=== PATIENT | male | born 1950 | race Caucasian/White ===

== ENCOUNTER 2020-09-04 | Outpatient (REF) | payer MEDICARE, OTHER, SELFPAY ==
[2020-09-04 08:34] LABS: MANUAL DIFF FLAG NO
[2020-09-04 08:49] LABS: Basophils Absolute Auto 0.1 X10*3/uL (0.0-0.2); Basophils Percent Auto 0.8 % (0-2); Eosinophils Absolute Auto 0.2 X10*3/uL (0.0-0.4); Eosinophils Percent Auto 2.1 % (0-4); Hemoglobin 14.4 g/dl (14.0-18.0); Imm Gran Abs Auto 0.23 X10*3/uL (0.00-0.03); Imm Gran Pct Auto 2.7 % (0.0-0.4); Lymphocytes Absolute Auto 2.4 X10*3/uL (1.2-4.9); Lymphocytes Percent Auto 28.4 % (20-40); Mean Corpuscular HGB Conc 32.7 g/dl (31.0-36.0); Mean Corpuscular Hemoglobin 30.5 pg (27.0-33.0); Mean Corpuscular Volume 93.2 fL (80-98); Mean Platelet Volume 8.8 fL (9.4-12.4); Monocytes Absolute Auto 1.1 X10*3/uL (0.1-1.2); Monocytes Percent Auto 13.1 % (2-11); Neutrophils Absolute Auto 4.5 X10*3/uL (2.0-8.3); Neutrophils Percent Auto 52.9 % (45-73); Platelet Count 216 X10*3/uL (160-400); Red Blood Count 4.72 X10*6/uL (4.60-5.80); White Blood Count 8.5 X10*3/uL (4.8-10.8)
[2020-09-04 08:58] LABS: Alanine Aminotransferase 14 U/L (0-40); Albumin Level 3.6 g/dL (3.5-5.0); Alkaline Phosphatase 40 U/L (39-117); Anion Gap 12 (12-20); Aspartate Amino Transferase 17 U/L (5-37); Bilirubin Total 0.5 mg/dL (0.0-1.0); Blood Urea Nitrogen 31 mg/dL (9-16); Calcium 8.8 mg/dL (8.4-10.2); Carbon Dioxide 24 mmol/L (22-29); Chloride 107 mmol/L (96-108); Cholesterol 164 mg/dL; Estimated Glomerular Filt Rate 47; Glucose Fasting 95 mg/dL (60-99); HDL Cholesterol 58 mg/dL; LDL Cholesterol Calculated 81 mg/dl; Potassium 4.7 mmol/l (3.3-5.1); Sodium 138 mmol/L (135-145); Total Protein 6.9 g/dL (6.5-8.0); Triglycerides 128 mg/dL
== END 2020-09-04 00:01 | disposition home or self-care (01) ==
LOC: HO.HSHHMC
PROVIDERS: Visit Provider Internal Medicine Medical Oncology
DX: E78.5 Hyperlipidemia, unspecified (principal)
CPT/HCPCS: 36415; 80053; 80061; 85025

== ENCOUNTER 2021-01-03 | Outpatient (REF) | payer MEDICARE, OTHER, SELFPAY ==
[2021-01-03 08:41] LABS: MANUAL DIFF FLAG NO
[2021-01-03 08:43] LABS: Basophils Absolute Auto 0.1 X10*3/uL (0.0-0.2); Basophils Percent Auto 0.7 % (0-2); Eosinophils Absolute Auto 0.1 X10*3/uL (0.0-0.4); Eosinophils Percent Auto 1.4 % (0-4); Hematocrit 47.1 % (42-52); Hemoglobin 15.5 g/dl (14.0-18.0); Imm Gran Abs Auto 0.11 X10*3/uL (0.00-0.03); Imm Gran Pct Auto 1.2 % (0.0-0.4); Lymphocytes Absolute Auto 3.2 X10*3/uL (1.2-4.9); Lymphocytes Percent Auto 34.9 % (20-40); Mean Corpuscular HGB Conc 32.9 g/dl (31.0-36.0); Mean Corpuscular Hemoglobin 31.2 pg (27.0-33.0); Mean Corpuscular Volume 94.8 fL (80-98); Mean Platelet Volume 9.3 fL (9.4-12.4); Monocytes Absolute Auto 1.2 X10*3/uL (0.1-1.2); Monocytes Percent Auto 13.1 % (2-11); Neutrophils Absolute Auto 4.4 X10*3/uL (2.0-8.3); Neutrophils Percent Auto 48.7 % (45-73); Platelet Count 266 X10*3/uL (160-400); Red Blood Count 4.97 X10*6/uL (4.60-5.80); Red Cell Distribution Width 13.8 % (11.0-16.0)
[2021-01-03 08:51] LABS: Glucose Urine UA NEG (NEG); Leukocyte Esterase Urine NEG (NEG); Nitrite Urine NEG (NEG); PH 6.5 (5.0-8.0); Urine Blood NEG (NEG); Urine Ketones NEG (NEG); Urine Protein NEG (NEG-TRACE)
[2021-01-03 08:57] LABS: Appearance Urine CLEAR; Color Urine YELLOW
[2021-01-03 09:21] LABS: Alanine Aminotransferase 16 U/L (0-40); Albumin Level 3.7 g/dL (3.5-5.0); Alkaline Phosphatase 41 U/L (39-117); Anion Gap 13 (12-20); Aspartate Amino Transferase 20 U/L (5-37); Bilirubin Total 0.3 mg/dL (0.0-1.0); Blood Urea Nitrogen 26 mg/dL (9-16); Calcium 8.9 mg/dL (8.4-10.2); Carbon Dioxide 29 mmol/L (22-29); Chloride 105 mmol/L (96-108); Cholesterol 161 mg/dL; Estimated Glomerular Filt Rate 46; Glucose Fasting 87 mg/dL (60-99); HDL Cholesterol 53 mg/dL; LDL Cholesterol Calculated 80 mg/dl; Potassium 4.6 mmol/L (3.3-5.1); Sodium 142 mmol/L (135-145); Triglycerides 140 mg/dL
[2021-01-03 09:26] LABS: Valproate 78.6 mcg/mL (50.0-100.0)
== END 2021-01-03 00:01 | disposition home or self-care (01) ==
LOC: HO.HSHHMC
PROVIDERS: Visit Provider Internal Medicine Medical Oncology
DX: N18.9 Chronic kidney disease, unspecified (principal); E78.5 Hyperlipidemia, unspecified; F25.9 Schizoaffective disorder, unspecified
CPT/HCPCS: 36415; 80053; 80061; 80164; 81003; 85025

== ENCOUNTER 2021-11-14 07:19 | Outpatient (REF) | payer MEDICARE, OTHER, SELFPAY ==
[2021-11-14 07:28] LABS: MANUAL DIFF FLAG NO
[2021-11-14 07:59] LABS: Basophils Absolute Auto 0.1 X10*3/uL (0.0-0.2); Basophils Percent Auto 0.6 % (0-2); Eosinophils Absolute Auto 0.1 X10*3/uL (0.0-0.4); Eosinophils Percent Auto 0.9 % (0-4); Hematocrit 45.1 % (42.0-52.0); Hemoglobin 14.9 g/dl (14.0-18.0); Imm Gran Abs Auto 0.06 X10*3/uL (0.00-0.03); Imm Gran Pct Auto 0.7 % (0.0-0.4); Lymphocytes Absolute Auto 3.2 X10*3/uL (1.2-4.9); Mean Corpuscular Hemoglobin 32.6 pg (27.0-33.0); Mean Corpuscular Volume 98.7 fL (80.0-98.0); Mean Platelet Volume 9.1 fL (9.4-12.4); Monocytes Absolute Auto 1.1 X10*3/uL (0.1-1.2); Monocytes Percent Auto 13.5 % (2-11); Neutrophils Absolute Auto 3.9 x10*3/uL (2.0-8.3); Neutrophils Percent Auto 46.3 % (45-73); Platelet Count 210 X10*3/uL (160-400); Red Blood Count 4.57 X10*6/uL (4.60-5.80); Red Cell Distribution Width 13.8 % (11.0-16.0); White Blood Count 8.4 X10*3/uL (4.8-10.8)
[2021-11-14 08:16] LABS: Alanine Aminotransferase 13 U/L (0-40); Albumin Level 3.8 g/dL (3.5-5.0); Alkaline Phosphatase 47 U/L (39-117); Anion Gap 13 (12-20); Aspartate Amino Transferase 18 U/L (5-37); Bilirubin Total 0.5 mg/dL (0.0-1.0); Blood Urea Nitrogen 16 mg/dL (9-16); Calcium 9.8 mg/dL (8.4-10.2); Carbon Dioxide 28 mmol/L (22-29); Chloride 106 mmol/L (96-108); Cholesterol 187 mg/dL; Estimated Glomerular Filt Rate 41; Glucose Fasting 77 mg/dL (60-99); HDL Cholesterol 65 mg/dL; LDL Cholesterol Calculated 100 mg/dl; Potassium 5.2 mmol/L (3.3-5.1); Sodium 142 mmol/L (135-145); Total Protein 7.1 g/dL (6.5-8.0); Triglycerides 110 mg/dL
[2021-11-14 08:20] LABS: Valproate 81.1 mcg/mL (50.0-100.0)
[2021-11-14 08:34] LABS: PSA,Total (Free>4and<10) 2.13 ng/mL (0.00-4.00)
== END 2021-11-14 07:20 | disposition home or self-care (01) ==
LOC: HO.HSH3E 07:19
PROVIDERS: Visit Provider Internal Medicine Medical Oncology
DX: Z12.5 Encounter for screening for malignant neoplasm of prostate (principal); Z79.899 Other long term (current) drug therapy
CPT/HCPCS: 36415; 80053; 80061; 80164; 84153; 85025

== ENCOUNTER 2022-01-03 05:48 | Outpatient (REF) | payer MEDICARE, OTHER, SELFPAY ==
[2022-01-03 07:36] LABS: MANUAL DIFF FLAG NO
[2022-01-03 07:41] LABS: Basophils Percent Auto 0.6 % (0-2); Eosinophils Absolute Auto 0.1 X10*3/uL (0.0-0.4); Eosinophils Percent Auto 1.4 % (0-4); Hematocrit 40.8 % (42.0-52.0); Hemoglobin 13.4 g/dl (14.0-18.0); Imm Gran Abs Auto 0.03 X10*3/uL (0.00-0.03); Imm Gran Pct Auto 0.5 % (0.0-0.4); Lymphocytes Absolute Auto 2.3 X10*3/uL (1.2-4.9); Lymphocytes Percent Auto 34.8 % (20-40); Mean Corpuscular HGB Conc 32.8 g/dl (31.0-36.0); Mean Corpuscular Hemoglobin 32.3 pg (27.0-33.0); Mean Corpuscular Volume 98.3 fL (80.0-98.0); Mean Platelet Volume 9.4 fL (9.4-12.4); Monocytes Absolute Auto 0.9 X10*3/uL (0.1-1.2); Monocytes Percent Auto 14.1 % (2-11); Neutrophils Absolute Auto 3.1 x10*3/uL (2.0-8.3); Neutrophils Percent Auto 48.6 % (45-73); Platelet Count 161 X10*3/uL (160-400); Red Blood Count 4.15 X10*6/uL (4.60-5.80); Red Cell Distribution Width 13.8 % (11.0-16.0); White Blood Count 6.5 X10*3/uL (4.8-10.8)
[2022-01-03 07:59] LABS: Alanine Aminotransferase 11 U/L (0-40); Albumin Level 3.3 g/dL (3.5-5.0); Alkaline Phosphatase 42 U/L (39-117); Anion Gap 8 (12-20); Aspartate Amino Transferase 17 U/L (5-37); Bilirubin Total 0.4 mg/dL (0.0-1.0); Blood Urea Nitrogen 17 mg/dL (9-16); Calcium 9.2 mg/dL (8.4-10.2); Carbon Dioxide 31 mmol/L (22-29); Chloride 108 mmol/L (96-108); Cholesterol 149 mg/dL; Estimated Glomerular Filt Rate 49; Glucose Random 81 mg/dL (60-115); HDL Cholesterol 50 mg/dL; LDL Cholesterol Calculated 82 mg/dl; Potassium 5.3 mmol/L (3.3-5.1); Sodium 142 mmol/L (135-145); Total Protein 6.3 g/dL (6.5-8.0); Triglycerides 85 mg/dL
[2022-01-03 08:20] LABS: Free T4 (Free Thyroxine) 0.73 ng/dL (0.71-1.85); Prostate Specific Antigen 1.94 ng/mL (<0.05-4.0); Thyroid Stimulating Hormone 1.29 uIU/mL (0.32-4.0)
[2022-01-03 08:39] LABS: Valproate 74.5 mcg/mL (50.0-100.0)
[2022-01-03 09:04] LABS: Vitamin B12 519 pg/mL (200-900)
== END 2022-01-03 05:49 | disposition home or self-care (01) ==
LOC: HO.HSH3E 05:48
PROVIDERS: Visit Provider Internal Medicine Medical Oncology
DX: Z12.5 Encounter for screening for malignant neoplasm of prostate (principal); I10 Essential (primary) hypertension; F31.9 Bipolar disorder, unspecified; J44.9 Chronic obstructive pulmonary disease, unspecified; F20.9 Schizophrenia, unspecified; Z79.899 Other long term (current) drug therapy
CPT/HCPCS: 36415; 80053; 80061; 80164; 82607; 84153; 84439; 84443; 85025

== ENCOUNTER 2022-11-15 10:51 | Outpatient (REF) | payer MEDICARE, OTHER, SELFPAY ==
[2022-11-15 11:52] LABS: Influenza A PCR NEGATIVE (Negative); Influenza B PCR NEGATIVE (Negative); Resp Syncy Virus RNA Qual PCR NEGATIVE (Negative); SARS COV2 PCR INHOUSE NEGATIVE (Negative)
== END 2022-11-15 10:52 | disposition home or self-care (01) ==
LOC: HO.LNP 10:51
PROVIDERS: Visit Provider Internal Medicine Medical Oncology
DX: Z20.822 Contact with and (suspected) exposure to COVID-19 (principal)
CPT/HCPCS: 0241U

== ENCOUNTER 2022-11-16 02:54 | Outpatient (REF) | payer MEDICARE, OTHER, SELFPAY ==
[2022-11-16 04:21] LABS: Blood Urea Nitrogen 14 mg/dL (9-16); Estimated Glomerular Filt Rate 51
== END 2022-11-16 02:55 | disposition home or self-care (01) ==
LOC: HO.HSH1N 02:54
PROVIDERS: Visit Provider Internal Medicine Endocrinology, Diabetes & Metabolism
DX: U07.1 COVID-19 (principal); I10 Essential (primary) hypertension
CPT/HCPCS: 36415; 82565; 84520

== ENCOUNTER 2022-11-27 16:55 | Outpatient (REF) | payer MEDICARE, OTHER, SELFPAY ==
[2022-11-27 17:40] LABS: Appearance Urine Clear; Color Urine Yellow; Glucose Urine UA Negative (Negative); Leukocyte Esterase Urine Negative (Negative); Nitrite Urine Negative (Negative); PH 6.5 (5.0-9.0); Urine Blood Negative (Negative); Urine Ketones Negative (Negative); Urine Protein Negative (Neg-Trace)
== END 2022-11-27 16:56 | disposition home or self-care (01) ==
LOC: HO.HSH3E 16:55
PROVIDERS: Visit Provider Internal Medicine Medical Oncology
DX: R30.9 Painful micturition, unspecified (principal)
CPT/HCPCS: 81003

== ENCOUNTER 2023-05-06 05:34 | Outpatient (REF) | payer MEDICARE, OTHER, SELFPAY ==
[2023-05-06 07:11] LABS: MANUAL DIFF FLAG NO
[2023-05-06 07:14] LABS: Basophils Percent Auto 0.5 % (0-2); Eosinophils Absolute Auto 0.1 X10*3/uL (0.0-0.4); Eosinophils Percent Auto 1.1 % (0-4); Hematocrit 42.9 % (42.0-52.0); Hemoglobin 14.3 g/dl (14.0-18.0); Imm Gran Abs Auto 0.07 X10*3/uL (0.00-0.03); Imm Gran Pct Auto 0.8 % (0.0-0.4); Lymphocytes Absolute Auto 2.4 X10*3/uL (1.2-4.9); Lymphocytes Percent Auto 28.5 % (20-40); Mean Corpuscular HGB Conc 33.3 g/dl (31.0-36.0); Mean Corpuscular Hemoglobin 32.4 pg (27.0-33.0); Mean Corpuscular Volume 97.1 fL (80.0-98.0); Mean Platelet Volume 9.5 fL (9.4-12.4); Monocytes Absolute Auto 1.1 X10*3/uL (0.1-1.2); Monocytes Percent Auto 13.3 % (2-11); Neutrophils Absolute Auto 4.6 x10*3/uL (2.0-8.3); Neutrophils Percent Auto 55.8 % (45-73); Platelet Count 184 X10*3/uL (160-400); Red Blood Count 4.42 X10*6/uL (4.60-5.80); Red Cell Distribution Width 13.7 % (11.0-16.0); White Blood Count 8.2 X10*3/uL (4.8-10.8)
[2023-05-06 08:05] LABS: Alanine Aminotransferase 15 U/L (0-40); Albumin Level 3.3 g/dL (3.5-5.0); Alkaline Phosphatase 47 U/L (39-117); Anion Gap 11 (12-20); Aspartate Amino Transferase 23 U/L (5-37); Bilirubin Total 0.5 mg/dL (0.0-1.0); Blood Urea Nitrogen 15 mg/dL (9-16); Carbon Dioxide 30 mmol/L (22-29); Chloride 106 mmol/L (96-108); Cholesterol 154 mg/dL; Estimated Glomerular Filt Rate 49; Glucose Fasting 76 mg/dL (60-99); HDL Cholesterol 53 mg/dL; LDL Cholesterol Calculated 80 mg/dl; Potassium 5.4 mmol/L (3.3-5.1); Sodium 142 mmol/L (135-145); Total Protein 6.6 g/dL (6.5-8.0); Triglycerides 108 mg/dL
[2023-05-06 08:23] LABS: Ferritin 192 ng/mL (20-250); Prostate Specific Antigen Scr 1.95 ng/mL (<0.05-4.0)
== END 2023-05-06 05:35 | disposition home or self-care (01) ==
LOC: HO.HSH3E 05:34
PROVIDERS: Visit Provider Internal Medicine Medical Oncology
DX: Z12.5 Encounter for screening for malignant neoplasm of prostate (principal); F31.9 Bipolar disorder, unspecified; E78.5 Hyperlipidemia, unspecified; J44.9 Chronic obstructive pulmonary disease, unspecified; K92.1 Melena
CPT/HCPCS: 36415; 80053; 80061; 82728; 84153; 85025

== ENCOUNTER 2023-08-20 05:46 | Outpatient (REF) | payer MEDICARE, OTHER, SELFPAY ==
[2023-08-20 07:03] LABS: MANUAL DIFF FLAG NO
[2023-08-20 07:12] LABS: Basophils Percent Auto 0.6 % (0-2); Eosinophils Absolute Auto 0.2 X10*3/uL (0.0-0.4); Eosinophils Percent Auto 2.6 % (0-4); Hematocrit 39.8 % (42.0-52.0); Hemoglobin 13.1 g/dl (14.0-18.0); Imm Gran Abs Auto 0.05 X10*3/uL (0.00-0.03); Imm Gran Pct Auto 0.8 % (0.0-0.4); Lymphocytes Percent Auto 31.2 % (20-40); Mean Corpuscular HGB Conc 32.9 g/dl (31.0-36.0); Mean Corpuscular Volume 97.1 fL (80.0-98.0); Mean Platelet Volume 9.5 fL (9.4-12.4); Monocytes Absolute Auto 0.8 X10*3/uL (0.1-1.2); Monocytes Percent Auto 12.7 % (2-11); Neutrophils Absolute Auto 3.4 x10*3/uL (2.0-8.3); Neutrophils Percent Auto 52.1 % (45-73); Platelet Count 142 X10*3/uL (160-400); Red Cell Distribution Width 13.8 % (11.0-16.0); White Blood Count 6.4 X10*3/uL (4.8-10.8)
[2023-08-20 07:30] LABS: Alanine Aminotransferase 12 U/L (0-40); Albumin Level 3.3 g/dL (3.5-5.0); Alkaline Phosphatase 42 U/L (39-117); Anion Gap 11 (12-20); Aspartate Amino Transferase 17 U/L (5-37); Bilirubin Total 0.2 mg/dL (0.0-1.0); Blood Urea Nitrogen 18 mg/dL (9-16); Calcium 8.9 mg/dL (8.4-10.2); Carbon Dioxide 27 mmol/L (22-29); Chloride 108 mmol/L (96-108); Estimated Glomerular Filt Rate 48; Glucose Random 83 mg/dL (60-115); Magnesium 2.1 mg/dL (1.6-2.6); Potassium 5.1 mmol/L (3.3-5.1); Sodium 141 mmol/L (135-145); Total Protein 6.4 g/dL (6.5-8.0)
[2023-08-20 07:46] LABS: Thyroid Stimulating Hormone 1.48 uIU/mL (0.32-4.0); Vitamin D 25-OH Total 18.7 ng/mL (>30)
[2023-08-20 08:00] LABS: Folate 15.3 ng/mL (> or = 4.0); Vitamin B12 502 pg/mL (200-900)
== END 2023-08-20 05:47 | disposition home or self-care (01) ==
LOC: HO.HSH3E 05:46
PROVIDERS: Visit Provider Internal Medicine Medical Oncology
DX: I10 Essential (primary) hypertension (principal); J44.9 Chronic obstructive pulmonary disease, unspecified; F31.9 Bipolar disorder, unspecified; E55.9 Vitamin D deficiency, unspecified
CPT/HCPCS: 36415; 80053; 82306; 82607; 82746; 83735; 84443; 85025

== ENCOUNTER 2023-10-31 15:13 | Outpatient (REF) | payer MEDICARE, OTHER, SELFPAY ==
[2023-10-31 15:38] LABS: MANUAL DIFF FLAG NO
[2023-10-31 15:42] LABS: Basophils Percent Auto 0.4 % (0-2); Eosinophils Absolute Auto 0.1 X10*3/uL (0.0-0.4); Eosinophils Percent Auto 1.4 % (0-4); Hemoglobin 11.9 g/dl (14.0-18.0); Imm Gran Abs Auto 0.02 X10*3/uL (0.00-0.03); Imm Gran Pct Auto 0.4 % (0.0-0.4); Lymphocytes Absolute Auto 1.4 X10*3/uL (1.2-4.9); Lymphocytes Percent Auto 25.4 % (20-40); Mean Corpuscular HGB Conc 33.1 g/dl (31.0-36.0); Mean Corpuscular Hemoglobin 32.4 pg (27.0-33.0); Mean Corpuscular Volume 98.1 fL (80.0-98.0); Mean Platelet Volume 9.4 fL (9.4-12.4); Monocytes Absolute Auto 0.8 X10*3/uL (0.1-1.2); Monocytes Percent Auto 13.6 % (2-11); Neutrophils Absolute Auto 3.4 x10*3/uL (2.0-8.3); Neutrophils Percent Auto 58.8 % (45-73); Platelet Count 166 X10*3/uL (160-400); Red Blood Count 3.67 X10*6/uL (4.60-5.80); Red Cell Distribution Width 13.5 % (11.0-16.0); White Blood Count 5.7 X10*3/uL (4.8-10.8)
[2023-10-31 15:49] LABS: Ammonia 88 umol/L (13-55)
[2023-10-31 16:04] LABS: Alanine Aminotransferase 11 U/L (0-40); Albumin Level 3.2 g/dL (3.5-5.0); Alkaline Phosphatase 37 U/L (39-117); Anion Gap 9 (12-20); Aspartate Amino Transferase 20 U/L (5-37); Bilirubin Total 0.2 mg/dL (0.0-1.0); Blood Urea Nitrogen 17 mg/dL (9-16); Calcium 8.8 mg/dL (8.4-10.2); Carbon Dioxide 29 mmol/L (22-29); Chloride 106 mmol/L (96-108); Estimated Glomerular Filt Rate 46; Glucose Random 119 mg/dL (60-115); Potassium 4.6 mmol/L (3.3-5.1); Sodium 139 mmol/L (135-145); Total Protein 6.1 g/dL (6.5-8.0)
[2023-10-31 16:18] LABS: Thyroid Stimulating Hormone 0.86 uIU/mL (0.32-4.0)
== END 2023-10-31 15:14 | disposition home or self-care (01) ==
LOC: HO.HSH3E 15:13
PROVIDERS: Visit Provider Internal Medicine
DX: N18.9 Chronic kidney disease, unspecified (principal); R25.1 Tremor, unspecified
CPT/HCPCS: 36415; 80053; 82140; 84443; 85025

== ENCOUNTER 2023-11-02 05:08 | Outpatient (REF) | payer MEDICARE, OTHER, SELFPAY ==
[2023-11-02 06:55] LABS: Ammonia 49 umol/L (13-55)
== END 2023-11-02 05:09 | disposition home or self-care (01) ==
LOC: HO.HSH3E 05:08
PROVIDERS: Visit Provider Nurse Practitioner Acute Care
DX: F31.9 Bipolar disorder, unspecified (principal)
CPT/HCPCS: 36415; 82140

== ENCOUNTER 2023-11-11 05:04 | Outpatient (REF) | payer MEDICARE, OTHER, SELFPAY ==
[2023-11-11 05:34] LABS: Appearance Urine Clear; Color Urine Yellow; Glucose Urine UA Negative (Negative); Leukocyte Esterase Urine Negative (Negative); Nitrite Urine Negative (Negative); Specific Gravity - Urine <= 1.005 (1.005-1.025); Urine Blood Negative (Negative); Urine Ketones Negative (Negative); Urine Protein Negative (Neg-Trace)
[2023-11-11 05:44] LABS: Valproate 75.5 mcg/mL (50.0-100.0)
[2023-11-11 16:50] LABS: Appearance Urine Clear; Color Urine Yellow; Glucose Urine UA Negative (Negative); Leukocyte Esterase Urine Negative (Negative); Nitrite Urine Negative (Negative); Urine Blood Negative (Negative); Urine Ketones Negative (Negative); Urine Protein Negative (Neg-Trace)
== END 2023-11-11 05:05 | disposition home or self-care (01) ==
LOC: HO.HSH3E 05:04
PROVIDERS: Visit Provider Internal Medicine Medical Oncology
DX: R35.0 Frequency of micturition (principal); N18.9 Chronic kidney disease, unspecified; F31.9 Bipolar disorder, unspecified; Z79.899 Other long term (current) drug therapy
CPT/HCPCS: 36415; 80164; 81003; 87086

== ENCOUNTER 2023-11-18 05:16 | Outpatient (REF) | payer MEDICARE, OTHER, SELFPAY ==
[2023-11-18 06:31] LABS: Valproate 74.1 mcg/mL (50.0-100.0)
== END 2023-11-18 05:17 | disposition home or self-care (01) ==
LOC: HO.HSH3E 05:16
PROVIDERS: Visit Provider Internal Medicine Medical Oncology
DX: F31.9 Bipolar disorder, unspecified (principal); F20.9 Schizophrenia, unspecified
CPT/HCPCS: 36415; 80164

== ENCOUNTER 2023-12-04 05:02 | Outpatient (REF) | payer MEDICARE, OTHER, SELFPAY ==
[2023-12-04 06:21] LABS: MANUAL DIFF FLAG NO
[2023-12-04 06:43] LABS: Basophils Percent Auto 0.5 % (0-2); Eosinophils Absolute Auto 0.1 X10*3/uL (0.0-0.4); Eosinophils Percent Auto 1.6 % (0-4); Hematocrit 35.8 % (42.0-52.0); Imm Gran Abs Auto 0.04 X10*3/uL (0.00-0.03); Imm Gran Pct Auto 0.7 % (0.0-0.4); Lymphocytes Absolute Auto 1.6 X10*3/uL (1.2-4.9); Lymphocytes Percent Auto 29.1 % (20-40); Mean Corpuscular HGB Conc 33.5 g/dl (31.0-36.0); Mean Corpuscular Hemoglobin 32.3 pg (27.0-33.0); Mean Corpuscular Volume 96.2 fL (80.0-98.0); Mean Platelet Volume 9.9 fL (9.4-12.4); Monocytes Percent Auto 17.4 % (2-11); Neutrophils Absolute Auto 2.8 x10*3/uL (2.0-8.3); Neutrophils Percent Auto 50.7 % (45-73); Platelet Count 146 X10*3/uL (160-400); Red Blood Count 3.72 X10*6/uL (4.60-5.80); White Blood Count 5.5 X10*3/uL (4.8-10.8)
[2023-12-04 06:51] LABS: Alanine Aminotransferase 10 U/L (0-40); Albumin Level 2.8 g/dL (3.5-5.0); Alkaline Phosphatase 45 U/L (39-117); Anion Gap 10 (12-20); Aspartate Amino Transferase 19 U/L (5-37); Bilirubin Total 0.3 mg/dL (0.0-1.0); Blood Urea Nitrogen 9 mg/dL (9-16); Calcium 8.3 mg/dL (8.4-10.2); Carbon Dioxide 26 mmol/L (22-29); Chloride 103 mmol/L (96-108); Estimated Glomerular Filt Rate 56; Glucose Random 121 mg/dL (60-115); Potassium 4.4 mmol/L (3.3-5.1); Sodium 135 mmol/L (135-145); Total Protein 5.6 g/dL (6.5-8.0)
== END 2023-12-04 05:03 | disposition home or self-care (01) ==
LOC: HO.HSH3E 05:02
PROVIDERS: Visit Provider Internal Medicine Medical Oncology
DX: Z12.5 Encounter for screening for malignant neoplasm of prostate (principal); R97.20 Elevated prostate specific antigen [PSA]; I12.9 Hypertensive chronic kidney disease with stage 1 through stage 4 chronic kidney disease, or unspecified chronic kidney disease; N18.9 Chronic kidney disease, unspecified
CPT/HCPCS: 36415; 80053; 84153; 85025

== ENCOUNTER 2024-02-01 06:51 | Outpatient (REF) | payer MEDICARE, OTHER, SELFPAY ==
[2024-02-01 07:13] LABS: Hematocrit 39.7 % (42.0-52.0); Hemoglobin 13.6 g/dl (14.0-18.0); Mean Corpuscular HGB Conc 34.3 g/dl (31.0-36.0); Mean Corpuscular Hemoglobin 32.3 pg (27.0-33.0); Mean Corpuscular Volume 94.3 fL (80.0-98.0); Mean Platelet Volume 9.2 fL (9.4-12.4); Platelet Count 245 X10*3/uL (160-400); Red Blood Count 4.21 X10*6/uL (4.60-5.80); Red Cell Distribution Width 12.9 % (11.0-16.0); White Blood Count 7.8 X10*3/uL (4.8-10.8)
[2024-02-01 07:45] LABS: Alanine Aminotransferase 12 U/L (0-40); Albumin Level 3.7 g/dL (3.5-5.0); Alkaline Phosphatase 45 U/L (39-117); Anion Gap 12 (12-20); Aspartate Amino Transferase 16 U/L (5-37); Bilirubin Total 0.3 mg/dL (0.0-1.0); Blood Urea Nitrogen 9 mg/dL (9-16); Calcium 9.4 mg/dL (8.4-10.2); Carbon Dioxide 26 mmol/L (22-29); Chloride 102 mmol/L (96-108); Estimated Glomerular Filt Rate > 60; Glucose Fasting 80 mg/dL (60-99); Iron 60 mcg/dL (45-160); Percent Iron Saturation 28 % (15-50); Phosphorus 2.9 mg/dL (2.7-4.5); Potassium 4.2 mmol/L (3.3-5.1); Sodium 136 mmol/L (135-145); Total Iron Binding Capacity 213 mcg/dL (228-428); Total Protein 6.8 g/dL (6.5-8.0); Unsaturated Iron Binding 153 ug/dL
[2024-02-01 08:01] LABS: Ferritin 109 ng/mL (20-250); Thyroid Stimulating Hormone 1.04 uIU/mL (0.32-4.0)
[2024-02-01 08:16] LABS: Folate 12.9 ng/mL (> or = 4.0); Vitamin B12 313 pg/mL (200-900)
[2024-02-01 08:49] LABS: Erythrocyte Sedimentation Rate 7 MM/HR (0-15)
== END 2024-02-01 06:52 | disposition home or self-care (01) ==
LOC: HO.HSH2W 06:51
PROVIDERS: Visit Provider Internal Medicine
DX: R63.4 Abnormal weight loss (principal); N18.9 Chronic kidney disease, unspecified; D64.9 Anemia, unspecified
CPT/HCPCS: 36415; 80053; 82607; 82728; 82746; 83540; 84100; 84443; 85027; 85652

== ENCOUNTER 2024-04-07 12:30 | Outpatient (REF) | payer MEDICARE, OTHER, SELFPAY ==
--- NOTE | ~2024-04-07 | XR_ITS ---
EXAMINATION: PRE-MRI SCREENING CLINICAL INFORMATION: Question of foreign body COMPARISON: None available. TECHNIQUE: 4 views of the skull, single view abdomen, single view chest FINDINGS: No radiopaque metallic foreign bodies are seen. There are degenerative changes in the spine. No evidence of bowel obstruction. The lungs are clear without infiltrates effusions or masses. Heart size normal. XR/XR pre mri screening IMPRESSION: No radiopaque metallic foreign bodies are seen.
--- NOTE | ~2024-04-07 | MR_ITS ---
EXAMINATION: MR BRAIN WITHOUT CONTRAST CLINICAL INFORMATION: Confusion, tremor, delirium COMPARISON: None. TECHNIQUE: MRI of the brain was obtained using routine sequences without contrast. FINDINGS: No acute infarct. No acute intracranial hemorrhage or extra-axial fluid collection. Mild to moderate ventriculomegaly slightly disproportionate to sulcal prominence, presumably related to deep white matter volume loss. Nonspecific mild T2 FLAIR hyperintensity predominantly in the periventricular white matter. No mass lesion, mass effect, or herniation pattern. Normal intracranial arterial and dural venous sinus flow voids. Normal appearance of the midline structures. The orbits are grossly unremarkable. Leftward nasal septal deviation with bony spur impinging on the base of the left inferior nasal turbinate. The paranasal sinuses and mastoids are well aerated. Normal marrow signal. MR/MR head/brain wo con IMPRESSION: 1. No acute intracranial abnormality. 2. Mild to moderate ventriculomegaly slightly disproportionate to sulcal prominence, presumably related to deep white matter volume loss, without additional findings suggestive of superimposed communicating hydrocephalus. Mild burden nonspecific supratentorial white matter disease.
== END 2024-04-07 12:31 | disposition home or self-care (01) ==
LOC: HO.MRI 12:30
PROVIDERS: PCP Internal Medicine Medical Oncology; Visit Provider Internal Medicine
DX: G25.70 Drug induced movement disorder, unspecified (principal); R41.0 Disorientation, unspecified; F25.9 Schizoaffective disorder, unspecified
CPT/HCPCS: 70551

== ENCOUNTER 2024-05-16 06:47 | Outpatient (REF) | payer MEDICARE, OTHER, SELFPAY ==
[2024-05-16 07:22] LABS: Ammonia 38 umol/L (13-55)
[2024-05-16 07:33] LABS: Alanine Aminotransferase 10 U/L (0-40); Albumin Level 3.9 g/dL (3.5-5.0); Alkaline Phosphatase 63 U/L (39-117); Anion Gap 11 (12-20); Aspartate Amino Transferase 17 U/L (5-37); Bilirubin Total 0.2 mg/dL (0.0-1.0); Blood Urea Nitrogen 13 mg/dL (9-16); Calcium 9.1 mg/dL (8.4-10.2); Carbon Dioxide 29 mmol/L (22-29); Chloride 99 mmol/L (96-108); Cholesterol 185 mg/dL (<200); Estimated Glomerular Filt Rate > 60; Glucose Random 104 mg/dL (60-115); HDL Cholesterol 57 mg/dL (>40); LDL Cholesterol Calculated 113 mg/dL (<100); Magnesium 1.9 mg/dL (1.6-2.6); Potassium 3.7 mmol/L (3.3-5.1); Sodium 135 mmol/L (135-145); Total Protein 7.1 g/dL (6.5-8.0); Triglycerides 77 mg/dL (<150)
== END 2024-05-16 06:48 | disposition home or self-care (01) ==
LOC: HO.HSH2W 06:47
PROVIDERS: Visit Provider Internal Medicine
DX: Z13.89 Encounter for screening for other disorder (principal)
CPT/HCPCS: 36415; 80053; 80061; 82140; 83735; 85025

== ENCOUNTER 2024-05-16 09:26 | Inpatient (IN) | payer MEDICARE, OTHER, SELFPAY ==
--- NOTE | 2024-05-16 09:28 | ECG_ITS ---
Test Reason : AMS Blood Pressure : / mmHG Vent. Rate : 088 BPM Atrial Rate : 088 BPM P-R Int : 184 ms QRS Dur : 100 ms QT Int : 368 ms P-R-T Axes : 079 078 092 degrees QTc Int : 445 ms Normal sinus rhythm Nonspecific ST and T wave abnormality Abnormal ECG No previous ECGs available Referred By: Tony Putnam Electronically Signed By:ILA DAVIS MD
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
[2024-05-16 09:30] VITALS: BP 180/98; PULSE 96; O2SAT 97
[2024-05-16 09:54] VITALS: BP 184/87; PULSE 90; RESP 16; TEMP 36.7; O2SAT 97; BMI 19.5
[2024-05-16 10:05] LABS: MANUAL DIFF FLAG NO
[2024-05-16 10:07] LABS: Basophils Percent Auto 0.6 % (0-2); Eosinophils Absolute Auto 0.1 X10*3/uL (0.0-0.4); Eosinophils Percent Auto 1.2 % (0-4); Hematocrit 34.3 % (42.0-52.0); Imm Gran Abs Auto 0.03 X10*3/uL (0.00-0.03); Imm Gran Pct Auto 0.4 % (0.0-0.4); Lymphocytes Absolute Auto 1.2 X10*3/uL (1.2-4.9); Lymphocytes Percent Auto 17.2 % (20-40); Mean Corpuscular Hemoglobin 32.2 pg (27.0-33.0); Mean Platelet Volume 7.9 fL (9.4-12.4); Monocytes Absolute Auto 0.7 X10*3/uL (0.1-1.2); Monocytes Percent Auto 10.9 % (2-11); Neutrophils Absolute Auto 4.6 x10*3/uL (2.0-8.3); Neutrophils Percent Auto 69.7 % (45-73); Platelet Count 234 X10*3/uL (160-400); Red Blood Count 3.73 X10*6/uL (4.60-5.80); Red Cell Distribution Width 13.3 % (11.0-16.0); White Blood Count 6.7 X10*3/uL (4.8-10.8)
[2024-05-16 10:11] VITALS: BP 184/87; PULSE 90; RESP 16; TEMP 36.7; O2SAT 97
--- NOTE | 2024-05-16 10:19 | PC.NURSE ---
On Section 12 for increased aggression at [facility]. Pt is alert/oriented x 3 however rapid speech and flight of ideas. Racial slurs noted during triage assessment. Pt is however agreeable to care. Change into hospital attire and labs sent. Denies audio/visual hallucinatins. When asked about SI pt reports I would never take my own life when asked about HI pt vague and aggressive about people he would hurt but no true clear HI plan
[2024-05-16 10:21] LABS: Appearance Urine Clear; Color Urine Yellow; Glucose Urine UA Negative (Negative); Leukocyte Esterase Urine Negative (Negative); Nitrite Urine Negative (Negative); Urine Blood Negative (Negative); Urine Ketones Negative (Negative); Urine Protein Negative (Neg-Trace)
[2024-05-16 10:25] LABS: Alanine Aminotransferase 10 U/L (0-40); Albumin Level 3.6 g/dL (3.5-5.0); Alkaline Phosphatase 60 U/L (39-117); Anion Gap 12 (12-20); Aspartate Amino Transferase 14 U/L (5-37); Bilirubin Total 0.2 mg/dL (0.0-1.0); Blood Urea Nitrogen 13 mg/dL (9-16); Carbon Dioxide 28 mmol/L (22-29); Chloride 99 mmol/L (96-108); Creatinine Clr Calc Pharmacy 54.8; Estimated Glomerular Filt Rate > 60; Ethanol < 10 mg/dL; Glucose Random 166 mg/dL (60-115); Magnesium 1.7 mg/dL (1.6-2.6); Potassium 3.1 mmol/L (3.3-5.1); Sodium 136 mmol/L (135-145); Total Protein 6.8 g/dL (6.5-8.0)
[2024-05-16 10:36] LABS: Amphetamine Screen Urine Not Detected (Not Detect); Barbiturates, Urine Not Detected (Not Detect); Benzodiazepines Screen Urine Not Detected (Not Detect); Buprenorphine Scr Not Detected (Not Detect); Cannabinoid Screen Urine Not Detected (Not Detect); Cocaine Screen Urine Not Detected (Not Detect); Fentanyl, urine Not Detected (Not Detect); Methadone Screen, Urine Not Detected (Not Detect); Opiate Screen Urine Not Detected (Not Detect); Oxycodone Screen Urine Not Detected (Not Detect); Phencyclidine Screen Urine Not Detected (Not Detect)
[2024-05-16] MEDS: Potassium Chloride Packet 20 MEQ PACKET 40 MEQ PO (13:07)
[2024-05-16 13:09] VITALS: BP 132/63; PULSE 81; RESP 16; O2SAT 96
--- NOTE | 2024-05-16 15:52 | MHC.CARE ---
Galley Worker called Kelly Mixon, Director of at [facility] to obtain collateral information. Detailed VM with request for return call left.
[2024-05-16 16:00] VITALS: RESP 18
--- NOTE | 2024-05-16 19:05 | PC.NURSE ---
patient appears to remain at rest presently, comes out upon t/ws first arrival asking for coffee/tea/refreshments appears in no distress
[2024-05-16 22:01] VITALS: BP 193/107; PULSE 69; RESP 17; TEMP 36.6; O2SAT 97
[2024-05-16] MEDS: hydrALAZINE HCl 10 MG TABLET PO (22:46)
--- NOTE | 2024-05-16 23:25 | PC.NURSE ---
t/w enlisted sw assistance to get med list for client. two workers (lisa and jos) both reported unable to get a hold of anyone at [facility] and no med list. t/w reported vs to MARY de león who ordered hydralazine for clients ^BP. good effect.
[2024-05-17 00:23] VITALS: BP 179/106; PULSE 70; RESP 17; TEMP 36.4; O2SAT 99
[2024-05-17] MEDS: QUEtiapine Fumarate 100 MG TABLET PO ×2 (10:28→20:51)
[2024-05-17] MEDS: Benztropine Mesylate 1 MG TABLET PO ×2 (10:28→20:50)
[2024-05-17] MEDS: OXcarbazepine 300 MG TABLET PO ×2 (10:28→20:50)
[2024-05-17] MEDS: Divalproex Sodium ER 250 MG TAB.ER.24H PO ×2 (10:29→20:51)
[2024-05-17] MEDS: hydroCHLOROthiazide 12.5 MG TABLET PO (10:29)
[2024-05-17 16:50] VITALS: BP 170/91; PULSE 87; RESP 16; TEMP 36.2; O2SAT 97
--- NOTE | 2024-05-17 19:05 | PC.NURSE ---
patient appears to remain at rest at present respirations are even and unlabored patient appears in no distress
[2024-05-17] MEDS: Atorvastatin Calcium 10 MG TABLET PO (20:51)
[2024-05-18 06:23] VITALS: BP 169/86; PULSE 86; RESP 17; TEMP 36.3; O2SAT 98
--- NOTE | 2024-05-18 07:03 | PC.NURSE ---
Care of Pt assumed. Pt is observed to be awake and watching TV. Pt exits room to chat with staff briefly then returns to room. NAD noted at this time.
[2024-05-18] MEDS: OXcarbazepine 300 MG TABLET PO ×2 (09:39→20:28)
[2024-05-18 09:40] VITALS: BP 139/87
[2024-05-18] MEDS: hydroCHLOROthiazide 12.5 MG TABLET PO (09:40)
[2024-05-18] MEDS: Benztropine Mesylate 1 MG TABLET PO ×2 (09:40→20:27)
[2024-05-18] MEDS: Divalproex Sodium ER 250 MG TAB.ER.24H PO ×2 (09:40→20:28)
[2024-05-18] MEDS: QUEtiapine Fumarate 100 MG TABLET PO ×2 (09:40→20:28)
--- NOTE | 2024-05-18 09:44 | PC.NURSE ---
Patient showered without issue, now watching TV. Pleasant, calm and cooperative
[2024-05-18] MEDS: Lidocaine 4 % Patch ADH..PATCH 1 PATCH TRANSDERMA (09:52)
[2024-05-18 09:59] VITALS: BP 139/84; PULSE 84; RESP 16; TEMP 36.8; O2SAT 98
--- NOTE | 2024-05-18 10:00 | PC.NURSE ---
Morning med pass completed. Pt is pleasant and watching TV calmly in room. Pt ate breakfast and showered without complaints or complication. VSS.
[2024-05-18 13:58] VITALS: BMI 20.9
[2024-05-18 13:59] VITALS: BP 170/86; PULSE 86; RESP 17; TEMP 37; O2SAT 96
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
--- NOTE | 2024-05-18 17:05 | P.HPPS_ITS ---
HPI Date of Service: 05/18/24 Chief Complaint: si Sources of Information: patient interviewed, chart reviewed and crisis/core team assessment reviewed HPI Subjective Notes: Alvarez Warning (shows understanding) and Conditional Voluntary Narrative: Mr. 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 He was sent via EMS due to increase aggression, pounding his fist and increase threats of violence towards others. He has been at [facility] since 2005, initially in independent living and was transferred to LTC in 2019. Per SW from [facility], pt has been stable and has not required any psychiatric admission while he has been there. SW reported he had covid few months ago and since then he has decompensated. He started seeing psychiatrist, Dr. Joyner- recent medication changes but unclear which meds- pending collateral information. In the ED, cbc without leukocytosis, normocytic anemia, although high end of normal MCV (will get B12/folate levels). CMP without electrolyte abnormalities, creatinine clearance 54.3. UA not suggestive of uti, no protein, nor glucose, no leukocytosis or WBC nor nitrites. No head image completed as recently in March of this year he had MRI which shows significant atrophy and microvascular changes. Utox is negative. Ammonia is negative. No depakote level was obtained- will order for tomorrow morning. Pt seen on the unit. He is pleasant and cooperative with somewhat of an irritable edge. He reports they sent me here because I said something to someone they they got offended. When asked about theme of conversation or disagreement, pt states he was talking about politic, he denies threatening anyone or being physically aggressive towards any one there. He has some degree of mistrust with government related processes and agencies. He also reminisces about how morals and values have changed for the worse and people don't honor their principles. He makes it clear that he is Adventist and [place]. He states that he does not agree with injustices such as executive business coach Raúl who rape all those kids or the acid bleacher who assaulted children. He thanks this property underwriter for taking the time to meet with him and notes I thought this place was going to be worse but I like it. He denies SI- stating only coward people would do that! I tell people they need to suck it up! He also denies any plan or intent to harm anyone. He did tell clinician in the ED that he would shoot people for their sexual orientation. He denies this when I asked him- that he would actually harm someone who identifies as phillips. He reports that he is upset with the [place] for allowing same sex marriage...which is not the case. He denies VH/AH. No overt delusions other than underlying mistrust of politicians, government agencies. Pt reports sleeping well. He denies any concerns with his appetite. He thinks someone betrayed him by sending him here to the hospital. Past Psychiatric History: Inpt: pt denies prior admissions. He did report seeing a psychiatrist several years ago and does report seeing one recently. OP: Dr. Joyner Past med trials: depakote, trileptal, seroquel Medical Evaluation Reviewed: Yes PMFSH Family History: none Social History: never . no children. Serve in the [employer]. Family originally from [place] Substance History: hx of alcohol use, remission for more than 30 years Trauma History: not disclosed Diagnostics Vital Signs (24Hr): Vital Signs - 24 hr 05/18/24 06:23 05/18/24 09:40 05/18/24 09:59 Temperature 97.4 F 98.2 F Pulse Rate 86 84 Respiratory Rate 17 16 Blood Pressure 169/86 H 139/87 139/84 Pulse Oximetry 98 98 Oxygen Delivery Method Room Air Room Air 05/18/24 13:59 Temperature 98.6 F Pulse Rate 86 Respiratory Rate 17 Blood Pressure 170/86 H Pulse Oximetry 96 Oxygen Delivery Method Room Air BMI result Body Mass Index 20.9 Labs 05/16/24 09:58 05/19/24 08:02 Meds/Allergies Meds Home Medications ?Medication ?Instructions ?Recorded ?Confirmed ?Type acetaminophen 650 mg tablet 650 mg PO Q4H PRN Mild Pain (Scale 05/17/24 05/17/24 History Score 1-4) benztropine 1 mg tablet 1 mg PO BID 05/17/24 05/17/24 History clonazepam 0.5 mg tablet 0.5 mg PO TID PRN Anxiety 05/17/24 05/17/24 History divalproex 250 mg tablet,extended 250 mg PO BID 05/17/24 05/17/24 History release 24 hr docusate sodium 100 mg capsule 100 mg PO BEDTIME PRN Constipation 05/17/24 05/17/24 History (Colace) hydrochlorothiazide 12.5 mg capsule 12.5 mg PO DAILY 05/17/24 05/17/24 History lidocaine 4 % topical patch 1 patch topical DAILY 05/17/24 05/17/24 History (Lidocaine Pain Relief) oxcarbazepine 300 mg tablet 300 mg PO BID 05/17/24 05/17/24 History quetiapine 100 mg tablet (Seroquel) 100 mg PO BID 05/17/24 05/17/24 History simvastatin 10 mg tablet 10 mg PO BEDTIME 05/17/24 05/17/24 History Allergies Allergies Allergy/AdvReac Type Severity Reaction Status Date / Time Unable to Assess Allergy Verified 05/16/24 09:59 Mental Status Exam Mental Status Exam Narrative: Apperance: wearing casual clothing, good hygiene, in NAD Behavior: cooperative, strong views which can come out of offensive but do not seem personal Psychomotor: bilateral hand action and resting tremor- quite prominent and affects his ability to hold objects Speech: mumbles at times, regular rate, but hyperverbal, loud at times, spontaneous TP: some derailment and circumstantial TC: complaining about politics and lack of values/moral principles in the world Mood: good Affect: irritable edge SI: denies HI: denies VH/AH: none Delusions: some suspiciousness about government agencies... but this may be his own jail views Insight/judgment: poor x 2. Memory/cog: alert, oriented x3,pending MOCA and ACL Assessment & Plan Assessment & Plan (1) Bipolar disorder: Status: Acute Code(s): F31.9 - Bipolar disorder, unspecified (2) Cognitive impairment: Status: Acute Code(s): R41.89 - Other symptoms and signs involving cognitive functions and awareness Plan Mr. Beckford is a 73 year-old male who resides at [facility]. He was sent from there via EMS due to subacute progression of agitation, irritability, ponding his fist and verbal threats of violence towards others which is not his usual. SW from reports that he has been declinining after he got covid few months ago. He has been seen by psychiatrist Dr. Joyner and recent med changes have been done but it is unclear which meds. Will contact Dr. Joyner for further collateral information. On the unit, pt presents as cooperative, irritable edge, strong views about politics, ethics and morals. He is not aware of his own medications nor what these are for. We discussed risks, benefits and alternative treatment options. It also appears that cognitively pt has declined. Note that MRI in March of this year does show significant atrophy and microvascular changes, pending MOCA and ACL. PLAN 1. Admit to S1, CV, 5 minutes checks for safety 2. continue current medications. will check depakote level tomorrow. 3. obtain collateral information 4. aftercare planning. Patient educated on: diagnosis and medication risk/benefits Reason for continued inpatient stay Substantial Risk for: harm to others and inability to function Statement Statement: I have reviewed the history and physical and performed a pertinent examination on my patient. No changes have occurred unless specified. If the History and Physical was not performed prior to admission, the Hospitalist's service will be consulted for completing the admission physical. Time Spent With Patient Time: Total time managing care of this patient today ____ minutes.
[2024-05-18 20:00] VITALS: BP 158/80; BP 195/96; PULSE 76; RESP 19; TEMP 36.2; O2SAT 97
[2024-05-18] MEDS: Atorvastatin Calcium 10 MG TABLET PO (20:27)
[2024-05-18] MEDS: traZODone HCL 50 MG TABLET PO (23:32)
[2024-05-19 07:00] VITALS: BMI 21.6
[2024-05-19 08:00] VITALS: BP 174/81; PULSE 79; RESP 18; TEMP 36.2; O2SAT 100
[2024-05-19 08:16] LABS: Estimated Average Glucose 111 mg/dL; Hemoglobin A1c % 5.5 % (<6.0)
[2024-05-19 08:29] LABS: Alanine Aminotransferase 10 U/L (0-40); Alkaline Phosphatase 63 U/L (39-117); Anion Gap 12 (12-20); Aspartate Amino Transferase 17 U/L (5-37); Bilirubin Total 0.3 mg/dL (0.0-1.0); Blood Urea Nitrogen 22 mg/dL (9-16); Calcium 9.9 mg/dL (8.4-10.2); Carbon Dioxide 31 mmol/L (22-29); Chloride 98 mmol/L (96-108); Cholesterol 184 mg/dL (<200); Creatinine Clr Calc Pharmacy 43.2; Estimated Glomerular Filt Rate 46; Glucose Fasting 148 mg/dL (60-99); HDL Cholesterol 59 mg/dL (>40); LDL Cholesterol Calculated 111 mg/dL (<100); Potassium 4.2 mmol/L (3.3-5.1); Sodium 137 mmol/L (135-145); Total Protein 7.5 g/dL (6.5-8.0); Triglycerides 74 mg/dL (<150)
[2024-05-19 08:39] VITALS: BP 174/81
[2024-05-19] MEDS: hydroCHLOROthiazide 12.5 MG TABLET PO ×2 (08:39→11:03)
[2024-05-19] MEDS: Divalproex Sodium ER 250 MG TAB.ER.24H PO ×2 (08:39→21:04)
[2024-05-19] MEDS: QUEtiapine Fumarate 100 MG TABLET PO ×2 (08:39→21:04)
[2024-05-19] MEDS: OXcarbazepine 300 MG TABLET PO ×2 (08:39→21:04)
[2024-05-19] MEDS: Benztropine Mesylate 1 MG TABLET PO (08:40)
[2024-05-19] MEDS: Lidocaine 4 % Patch ADH..PATCH 1 PATCH TRANSDERMA (08:40)
[2024-05-19 08:44] LABS: Thyroid Stimulating Hormone 1.24 uIU/mL (0.32-4.0)
[2024-05-19 08:57] LABS: Folate 11.6 ng/mL (> or = 4.0); Vitamin B12 274 pg/mL (200-900)
[2024-05-19 11:03] VITALS: BP 182/79
[2024-05-19] MEDS: Nicotine 14 MG PATCH.TD24 TRANSDERMA (11:07)
--- NOTE | 2024-05-19 11:33 | P.PNPSI_ITS ---
Subjective Subjective Date of Service: 05/19/24 Reason For Visit: si Subjective Notes: Conditional Voluntary Interim History: Pt slept through the night. Pt presents as hyperverbal going on and on about politic, lack of morality in the world. He feels betrayed by whoever sent him here but comfortable here as he states people are nice, I like it here. He denies SI/HI. No aggression towards self or others. Taking meds as prescribed. Elevation in Cr today by more than 0.3 from admission and BUN. His BP is high. will stop hydrocholothiazide worsening of ARMANDO and consult hospitalist for ARMANDO and BP management. Diagnostics Vital Signs (24Hr): Vital Signs - 24 hr 05/18/24 13:59 05/18/24 20:00 05/18/24 20:00 Temperature 98.6 F 97.1 F 97.1 F Pulse Rate 86 76 76 Respiratory Rate 17 19 19 Blood Pressure 170/86 H 195/96 H 158/80 H Pulse Oximetry 96 97 97 Oxygen Delivery Method Room Air Room Air Room Air 05/19/24 08:00 05/19/24 08:39 05/19/24 11:03 Temperature 97.2 F Pulse Rate 79 Respiratory Rate 18 Blood Pressure 174/81 H 174/81 H 182/79 H Pulse Oximetry 100 Oxygen Delivery Method Room Air BMI result Body Mass Index 20.9 Labs 05/16/24 09:58 05/19/24 08:02 Labs: Laboratory Results - last 48 hr 05/19/24 08:02 Sodium 137 Potassium 4.2 D Chloride 98 Carbon Dioxide 31 H Anion Gap 12 BUN 22 H Creatinine 1.51 H Estim Creat Clear Calc 43.2 Estimated GFR 46 Fasting Glucose 148 H Estimat Average Glucose 111 Hemoglobin A1c % 5.5 Calcium 9.9 D Total Bilirubin 0.3 AST 17 ALT 10 Alkaline Phosphatase 63 Total Protein 7.5 Albumin 4.0 Triglycerides 74 Cholesterol 184 LDL Cholesterol, Calc 111 H HDL Cholesterol 59 Vitamin B12 274 Folate 11.6 TSH 1.24 Medications Medications Current Medications Acetaminophen (Acetaminophen 325 Mg Tablet) 650 mg PO Q4H PRN PRN Reason: Mild Pain (Scale Score 1-4) Al Hydroxide/Mg Hydroxide (Magnesium Hydrox/Alum Hydrox 30 Ml Oral.Susp) 30 ml PO Q6H PRN PRN Reason: Heartburn/Nausea Atorvastatin Calcium (Atorvastatin Calcium 10 Mg Tablet) 10 mg PO BEDTIME [facility] Last Admin: 05/18/24 20:27 Dose: 10 mg Benztropine Mesylate (Benztropine Mesylate 1 Mg Tablet) 1 mg PO BID [facility] Last Admin: 05/19/24 08:40 Dose: 1 mg Divalproex Sodium (Divalproex Sodium Er 250 Mg Tab.Er.24h) 250 mg PO BID [facility] Last Admin: 05/19/24 08:39 Dose: 250 mg Docusate Sodium (Docusate Sodium 100 Mg Capsule) 100 mg PO BEDTIME PRN PRN Reason: Constipation Hydrochlorothiazide (Hydrochlorothiazide 25 Mg Tablet) 25 mg PO DAILY [facility]; Protocol Lidocaine (Lidocaine 4 % Patch Adh..Patch) 1 patch TRANSDERMA DAILY [facility]; Protocol Last Admin: 05/19/24 08:40 Dose: 1 patch Magnesium Hydroxide (Milk Of Magnesia 30 Ml Oral.Susp) 30 ml PO DAILY PRN PRN Reason: Constipation Nicotine (Nicotine 14 Mg Patch.Td24) 14 mg TRANSDERMA DAILY [facility] Last Admin: 05/19/24 11:07 Dose: 14 mg Oxcarbazepine (Oxcarbazepine 300 Mg Tablet) 300 mg PO BID [facility] Last Admin: 05/19/24 08:39 Dose: 300 mg Quetiapine Fumarate (Quetiapine Fumarate 100 Mg Tablet) 100 mg PO BID [facility] Last Admin: 05/19/24 08:39 Dose: 100 mg Trazodone HCl (Trazodone Hcl 50 Mg Tablet) 50 mg PO BEDTIME MRX1 PRN PRN Reason: Insomnia Last Admin: 05/18/24 23:32 Dose: 50 mg Allergies Allergies Allergy/AdvReac Type Severity Reaction Status Date / Time Unable to Assess Allergy Verified 05/16/24 09:59 Assessment & Plan Assessment & Plan (1) Bipolar disorder: Status: Acute Code(s): F31.9 - Bipolar disorder, unspecified (2) Cognitive impairment: Status: Acute Code(s): R41.89 - Other symptoms and signs involving cognitive functions and awareness Plan Mr. Beckford is a 73 year-old male who resides at [facility]. He was sent from there via EMS due to subacute progression of agitation, irritability, ponding his fist and verbal threats of violence towards others which is not his usual. SW from reports that he has been declinining after he got covid few months ago. He has been seen by psychiatrist Dr. Joyner and recent med changes have been done but it is unclear which meds. Will contact Dr. Joyner for further collateral information. On the unit, pt presents as cooperative, irritable edge, strong views about politics, ethics and morals. He is not aware of his own medications nor what these are for. We discussed risks, benefits and alternative treatment options. It also appears that cognitively pt has declined. Note that MRI in March of this year does show significant atrophy and microvascular changes, pending MOCA and ACL. PLAN 05/19 consult to hospitalist for ARMANDO, HTN. will dc hydrocholothiazide for now. this underwriter mortgage loan called CONY Mccormick at [facility] awaiting call back Reason for continued inpatient stay Substantial Risk for: inability to function Time Spent With Patient Time: Total time managing care of this patient today ____ minutes.
--- NOTE | 2024-05-19 14:47 | P.EN_ITS ---
Event Note Date of Service: 05/19/24 Event Note: Patient is a 73-year-old male with a PMH significant for HTN, HLD, anxiety, depression, bipolar disorder, and schizophrenia admitted to [facility] with hospitalist consult for ARMANDO. Creatinine 1.51, elevated from 1.11 3 days prior on on 05/16/2024. However, review of patient's labs since 2018 review creatinine often elevated and 1.51 is in line with baseline. Spoke with nursing and reviewed patient's input, which was 840 cc this morning and 800 cc at lunch. N christiano also note patient constantly asking for coffee. No diarrhea, nausea, or vomiting. Given patient's high intake of p.o. liquids will hold off on IVF at this time. Will discontinue hydrochlorothiazide and switch to amlodipine 10 mg p.o. for hypotension. Will repeat labs tomorrow and follow BP for now. Time Spent With Patient Time: Total time managing care of this patient today ____ minutes.
[2024-05-19 15:17] VITALS: BP 168/84
[2024-05-19] MEDS: amLODIPine Besylate 10 MG TABLET PO (15:17)
[2024-05-19 20:00] VITALS: BP 161/93; PULSE 94; RESP 16; TEMP 36.1; O2SAT 97
[2024-05-19] MEDS: Atorvastatin Calcium 10 MG TABLET PO (21:04)
[2024-05-19 21:22] LABS: Valproate 25.6 mcg/mL (50.0-100.0)
[2024-05-19 22:59] VITALS: BP 162/72; PULSE 85
[2024-05-20 08:44] VITALS: BP 180/80; PULSE 88; RESP 15; TEMP 36.7; O2SAT 98
[2024-05-20] MEDS: QUEtiapine Fumarate 100 MG TABLET PO ×2 (08:52→20:43)
[2024-05-20] MEDS: OXcarbazepine 300 MG TABLET PO ×2 (08:52→20:44)
[2024-05-20] MEDS: Nicotine 14 MG PATCH.TD24 TRANSDERMA (08:52)
[2024-05-20] MEDS: Divalproex Sodium ER 250 MG TAB.ER.24H PO ×2 (08:52→20:43)
[2024-05-20] MEDS: amLODIPine Besylate 10 MG TABLET PO (08:52)
[2024-05-20] MEDS: Lidocaine 4 % Patch ADH..PATCH 1 PATCH TRANSDERMA (08:53)
--- NOTE | 2024-05-20 10:59 | HO.PSYCHPN ---
Subjective Subjective Date of Service: 05/20/24 Reason For Visit: si Subjective Notes: Conditional Voluntary Interim History: Pt slept through the night. Pt continues to present somewhat hyperverbal talking about movies, politics. No behavioral concerns. he takes medications as prescribed. No SI/HI. He worries his reputation is ruined now that he was sent to the hospital. Review of Systems Review of Systems Yes all other systems are reviewed and are negative Mental Status Exam Mental Status Exam Narrative: Apperance: wearing casual clothing, good hygiene, in NAD Behavior: cooperative, strong views which can come out of offensive but do not seem personal Psychomotor: bilateral hand action and resting tremor- quite prominent and affects his ability to hold objects Speech: mumbles at times, regular rate, but hyperverbal, loud at times, spontaneous TP: some derailment and circumstantial TC: complaining about politics and lack of values/moral principles in the world Mood: good Affect: irritable edge SI: denies HI: denies VH/AH: none Delusions: some suspiciousness about government agencies... but this may be his own terminologist views Insight/judgment: poor x 2. Memory/cog: alert, oriented x3,pending MOCA and ACL Diagnostics Vital Signs (24Hr): Vital Signs - 24 hr 05/19/24 11:03 05/19/24 15:17 05/19/24 20:00 Temperature 97 F Pulse Rate 94 Respiratory Rate 16 Blood Pressure 182/79 H 168/84 H 161/93 H Pulse Oximetry 97 Oxygen Delivery Method Room Air 05/19/24 22:59 05/20/24 08:44 Temperature 98.1 F Pulse Rate 85 88 Respiratory Rate 15 Blood Pressure 162/72 H 180/80 H Pulse Oximetry 98 Oxygen Delivery Method Room Air BMI result Body Mass Index 21.6 Labs 05/16/24 09:58 05/20/24 15:15 Labs: Laboratory Results - last 48 hr 05/19/24 05/19/24 08:02 20:56 Sodium 137 Potassium 4.2 D Chloride 98 Carbon Dioxide 31 H Anion Gap 12 BUN 22 H Creatinine 1.51 H Estim Creat Clear Calc 43.2 Estimated GFR 46 Fasting Glucose 148 H Estimat Average Glucose 111 Hemoglobin A1c % 5.5 Calcium 9.9 D Total Bilirubin 0.3 AST 17 ALT 10 Alkaline Phosphatase 63 Total Protein 7.5 Albumin 4.0 Triglycerides 74 Cholesterol 184 LDL Cholesterol, Calc 111 H HDL Cholesterol 59 Vitamin B12 274 Folate 11.6 TSH 1.24 Valproic Acid 25.6 L Medications Medications Current Medications Acetaminophen (Acetaminophen 325 Mg Tablet) 650 mg PO Q4H PRN PRN Reason: Mild Pain (Scale Score 1-4) Al Hydroxide/Mg Hydroxide (Magnesium Hydrox/Alum Hydrox 30 Ml Oral.Susp) 30 ml PO Q6H PRN PRN Reason: Heartburn/Nausea Amlodipine Besylate (Amlodipine Besylate 10 Mg Tablet) 10 mg PO DAILY [facility]; Protocol Last Admin: 05/20/24 08:52 Dose: 10 mg Atorvastatin Calcium (Atorvastatin Calcium 10 Mg Tablet) 10 mg PO BEDTIME [facility] Last Admin: 05/19/24 21:04 Dose: 10 mg Divalproex Sodium (Divalproex Sodium Er 250 Mg Tab.Er.24h) 250 mg PO BID [facility] Last Admin: 05/20/24 08:52 Dose: 250 mg Docusate Sodium (Docusate Sodium 100 Mg Capsule) 100 mg PO BEDTIME PRN PRN Reason: Constipation Lidocaine (Lidocaine 4 % Patch Adh..Patch) 1 patch TRANSDERMA DAILY [facility]; Protocol Last Admin: 05/20/24 08:53 Dose: 1 patch Magnesium Hydroxide (Milk Of Magnesia 30 Ml Oral.Susp) 30 ml PO DAILY PRN PRN Reason: Constipation Nicotine (Nicotine 14 Mg Patch.Td24) 14 mg TRANSDERMA DAILY [facility] Last Admin: 05/20/24 08:52 Dose: 14 mg Oxcarbazepine (Oxcarbazepine 300 Mg Tablet) 300 mg PO BID [facility] Last Admin: 05/20/24 08:52 Dose: 300 mg Quetiapine Fumarate (Quetiapine Fumarate 100 Mg Tablet) 100 mg PO BID [facility] Last Admin: 05/20/24 08:52 Dose: 100 mg Trazodone HCl (Trazodone Hcl 50 Mg Tablet) 50 mg PO BEDTIME MRX1 PRN PRN Reason: Insomnia Last Admin: 05/18/24 23:32 Dose: 50 mg Allergies Allergies Allergy/AdvReac Type Severity Reaction Status Date / Time Unable to Assess Allergy Verified 05/16/24 09:59 Assessment & Plan Assessment & Plan (1) Bipolar disorder: Status: Acute Code(s): F31.9 - Bipolar disorder, unspecified (2) Cognitive impairment: Status: Acute Code(s): R41.89 - Other symptoms and signs involving cognitive functions and awareness Plan Mr. Beckford is a 73 year-old male who resides at [facility]. He was sent from there via EMS due to subacute progression of agitation, irritability, ponding his fist and verbal threats of violence towards others which is not his usual. SW from reports that he has been declinining after he got covid few months ago. He has been seen by psychiatrist Dr. Joyner and recent med changes have been done but it is unclear which meds. Will contact Dr. Joyner for further collateral information. On the unit, pt presents as cooperative, irritable edge, strong views about politics, ethics and morals. He is not aware of his own medications nor what these are for. We discussed risks, benefits and alternative treatment options. It also appears that cognitively pt has declined. Note that MRI in March of this year does show significant atrophy and microvascular changes, pending MOCA and ACL. PLAN 05/19 consult to hospitalist for ARMANDO, HTN. will dc hydrocholothiazide for now. this senior grant writer called CONY Mccormick at [facility] awaiting call back 05/20 continue tx. Reason for continued inpatient stay Substantial Risk for: inability to function Time Spent With Patient Time: Total time managing care of this patient today ____ minutes.
[2024-05-20 15:33] LABS: Anion Gap 12 (12-20); Blood Urea Nitrogen 26 mg/dL (9-16); Calcium 9.6 mg/dL (8.4-10.2); Carbon Dioxide 32 mmol/L (22-29); Chloride 101 mmol/L (96-108); Creatinine Clr Calc Pharmacy 46.5; Estimated Glomerular Filt Rate 48; Glucose Random 126 mg/dL (60-115); Potassium 4.1 mmol/L (3.3-5.1); Sodium 141 mmol/L (135-145)
[2024-05-20 20:00] VITALS: BP 177/75; PULSE 93; RESP 20; TEMP 36.7; O2SAT 97
[2024-05-20] MEDS: Atorvastatin Calcium 10 MG TABLET PO (20:43)
[2024-05-20] MEDS: traZODone HCL 50 MG TABLET PO (20:43)
[2024-05-21 08:00] VITALS: BP 199/95; PULSE 81; RESP 15; TEMP 36.6; O2SAT 97
[2024-05-21] MEDS: Nicotine 14 MG PATCH.TD24 TRANSDERMA (08:21)
[2024-05-21] MEDS: QUEtiapine Fumarate 100 MG TABLET PO ×2 (08:22→20:35)
[2024-05-21] MEDS: Divalproex Sodium ER 250 MG TAB.ER.24H PO ×3 (08:22→20:36)
[2024-05-21] MEDS: amLODIPine Besylate 10 MG TABLET PO (08:22)
[2024-05-21] MEDS: OXcarbazepine 300 MG TABLET PO ×2 (08:22→20:36)
[2024-05-21] MEDS: Lidocaine 4 % Patch ADH..PATCH 1 PATCH TRANSDERMA (08:22)
--- NOTE | 2024-05-21 08:25 | PC.NURSE ---
This nurse wrote kahlil moe text to Dr. Goldstein re: pt.'s BP. She let him know that it is consistently high and he takes his prescribed BP meds. stated that he will look into it.
--- NOTE | 2024-05-21 08:50 | PC.NURSE ---
This nurse received a message back from Dr. Goldstein via [email or web address]. he stated that he would like to take more time to see what the pt.'s BP does, since he was recently started on his HTN meds.
--- NOTE | 2024-05-21 09:31 | P.PNPSI_ITS ---
Subjective Subjective Date of Service: 05/21/24 Reason For Visit: si Subjective Notes: Conditional Voluntary Interim History: The nursing staff reported the patient had been irritable confused at times he slept 6 hours. His blood pressure had been consistently high and recently he is nor was was increased to 10 mg. Still high but we will wait until tomorrow. On interview the patient was extremely angry against a peer and was threatening him with violence. We tried to deescalate and oriented him he was hyperverbal talking about politics and he looks fairly oriented but extremely irritable. We review his Depakote level was 25 2 days ago. We are increasing Depakote up to TID. Mental Status Exam Mental Status Exam Patient Appearance: Well Grooomed and Appropriate Patient Orientation: Person and Situation Level of Consciousness: Awake and Appropriate Patient Behavior: Guarded and Passive Mood Description: Calm and Angry Affect Description: Constricted and Labile Patient Cognition Impaired: Yes Ability to Follow Directions: Fair Speech Pattern: Clear Memory Description: Immediate Impaired Thought Process: Distracted and Slowed Thinking Thought Content: positive for [place] and positive for Poverty of Content Judgement: Fair Diagnostics Vital Signs (24Hr): Vital Signs - 24 hr 05/20/24 20:00 05/21/24 08:00 Temperature 98.1 F 98 F Pulse Rate 93 81 Respiratory Rate 20 15 Blood Pressure 177/75 H 199/95 H Pulse Oximetry 97 97 Oxygen Delivery Method Room Air Room Air BMI result Body Mass Index 21.6 Labs 05/16/24 09:58 05/20/24 15:15 Labs: Laboratory Results - last 48 hr 05/19/24 05/20/24 20:56 15:15 Sodium 141 Potassium 4.1 Chloride 101 Carbon Dioxide 32 H Anion Gap 12 BUN 26 H Creatinine 1.45 H Estim Creat Clear Calc 46.5 Estimated GFR 48 Random Glucose 126 H Calcium 9.6 Valproic Acid 25.6 L Medications Medications Current Medications Acetaminophen (Acetaminophen 325 Mg Tablet) 650 mg PO Q4H PRN PRN Reason: Mild Pain (Scale Score 1-4) Al Hydroxide/Mg Hydroxide (Magnesium Hydrox/Alum Hydrox 30 Ml Oral.Susp) 30 ml PO Q6H PRN PRN Reason: Heartburn/Nausea Amlodipine Besylate (Amlodipine Besylate 10 Mg Tablet) 10 mg PO DAILY [facility]; Protocol Last Admin: 05/21/24 08:22 Dose: 10 mg Atorvastatin Calcium (Atorvastatin Calcium 10 Mg Tablet) 10 mg PO BEDTIME [facility] Last Admin: 05/20/24 20:43 Dose: 10 mg Divalproex Sodium (Divalproex Sodium Er 250 Mg Tab.Er.24h) 250 mg PO BID [facility] Last Admin: 05/21/24 08:22 Dose: 250 mg Docusate Sodium (Docusate Sodium 100 Mg Capsule) 100 mg PO BEDTIME PRN PRN Reason: Constipation Lidocaine (Lidocaine 4 % Patch Adh..Patch) 1 patch TRANSDERMA DAILY [facility]; Protocol Last Admin: 05/21/24 08:22 Dose: 1 patch Magnesium Hydroxide (Milk Of Magnesia 30 Ml Oral.Susp) 30 ml PO DAILY PRN PRN Reason: Constipation Nicotine (Nicotine 14 Mg Patch.Td24) 14 mg TRANSDERMA DAILY [facility] Last Admin: 05/21/24 08:21 Dose: 14 mg Oxcarbazepine (Oxcarbazepine 300 Mg Tablet) 300 mg PO BID [facility] Last Admin: 05/21/24 08:22 Dose: 300 mg Quetiapine Fumarate (Quetiapine Fumarate 100 Mg Tablet) 100 mg PO BID [facility] Last Admin: 05/21/24 08:22 Dose: 100 mg Trazodone HCl (Trazodone Hcl 50 Mg Tablet) 50 mg PO BEDTIME MRX1 PRN PRN Reason: Insomnia Last Admin: 05/20/24 20:43 Dose: 50 mg Allergies Allergies Allergy/AdvReac Type Severity Reaction Status Date / Time Unable to Assess Allergy Verified 05/16/24 09:59 Assessment & Plan Assessment & Plan (1) Bipolar disorder: Status: Acute Code(s): F31.9 - Bipolar disorder, unspecified (2) Cognitive impairment: Status: Acute Code(s): R41.89 - Other symptoms and signs involving cognitive functions and awareness Plan Mr. Beckford is a 73 year-old male who resides at [facility]. He was sent from there via EMS due to subacute progression of agitation, irritability, ponding his fist and verbal threats of violence towards others which is not his usual. SW from reports that he has been declinining after he got covid few months ago. He has been seen by psychiatrist Dr. Joyner and recent med changes have been done but it is unclear which meds. Will contact Dr. Joyner for further collateral information. On the unit, pt presents as cooperative, irritable edge, strong views about politics, ethics and morals. He is not aware of his own medications nor what these are for. We discussed risks, benefits and alternative treatment options. It also appears that cognitively pt has declined. Note that MRI in March of this year does show significant atrophy and microvascular changes, pending MOCA and ACL. PLAN 05/19 consult to hospitalist for ARMANDO, HTN. will dc hydrocholothiazide for now. this publicity writer called CONY Mccormick at [facility] awaiting call back 05/20 continue tx. 05/21 yesterday his Norvasc was increased up to 10 mg p.o. at still with high blood pressure we will monitor closely. We are increasing Depakote up to 250 mg p.o. t.i.d. for agitation and aggression Reason for continued inpatient stay Substantial Risk for: inability to function, rapid decompensation and med/psych decompensation Time Spent With Patient Time: Total time managing care of this patient today __20__ minutes.
[2024-05-21 20:00] VITALS: BP 161/79; PULSE 97; RESP 20; TEMP 37.2; O2SAT 98
[2024-05-21] MEDS: Atorvastatin Calcium 10 MG TABLET PO (20:35)
[2024-05-21] MEDS: traZODone HCL 50 MG TABLET PO (20:36)
[2024-05-22] MEDS: traZODone HCL 50 MG TABLET PO (00:12)
[2024-05-22 08:15] VITALS: BP 181/88; PULSE 90; RESP 18; TEMP 36.3; O2SAT 96
--- NOTE | 2024-05-22 09:28 | HO.PSYCHPN ---
Subjective Subjective Date of Service: 05/22/24 Reason For Visit: si Subjective Notes: Conditional Voluntary Interim History: The nursing staff reported the patient had been angry and irritable at times he was seen self dialogue in. He has been targeting another peer. He slept only 3 hours. The staff has noticed that the patient has poor boundaries and he is hyperverbal, he has the past history of bipolar disorder. On interview the patient reports that he is feeling angry with a peer explained him about boundaries that he should not confront his peer. We are increasing Seroquel up to 100 mg p.o. t.i.d. to target irritability, disorganized thought process and mirza. Mental Status Exam Mental Status Exam Patient Appearance: Appropriate Patient Orientation: Person and Situation Level of Consciousness: Awake and Restless Patient Behavior: Guarded Mood Description: Labile Affect Description: Constricted Patient Cognition Impaired: Yes Ability to Follow Directions: Good Speech Pattern: Clear Hallucinations: None Delusions: Paranoid Ideation and Ideas of Reference Thought Process: Distracted and Evasive Thought Content: positive for [place] and positive for Poverty of Content Judgement: Poor Diagnostics Vital Signs (24Hr): Vital Signs - 24 hr 05/21/24 20:00 Temperature 99 F Pulse Rate 97 Respiratory Rate 20 Blood Pressure 161/79 H Pulse Oximetry 98 Oxygen Delivery Method Room Air BMI result Body Mass Index 21.6 Labs 05/16/24 09:58 05/20/24 15:15 Labs: Laboratory Results - last 48 hr 05/20/24 15:15 Sodium 141 Potassium 4.1 Chloride 101 Carbon Dioxide 32 H Anion Gap 12 BUN 26 H Creatinine 1.45 H Estim Creat Clear Calc 46.5 Estimated GFR 48 Random Glucose 126 H Calcium 9.6 Medications Medications Current Medications Acetaminophen (Acetaminophen 325 Mg Tablet) 650 mg PO Q4H PRN PRN Reason: Mild Pain (Scale Score 1-4) Al Hydroxide/Mg Hydroxide (Magnesium Hydrox/Alum Hydrox 30 Ml Oral.Susp) 30 ml PO Q6H PRN PRN Reason: Heartburn/Nausea Amlodipine Besylate (Amlodipine Besylate 10 Mg Tablet) 10 mg PO DAILY [facility]; Protocol Last Admin: 05/21/24 08:22 Dose: 10 mg Atorvastatin Calcium (Atorvastatin Calcium 10 Mg Tablet) 10 mg PO BEDTIME [facility] Last Admin: 05/21/24 20:35 Dose: 10 mg Divalproex Sodium (Divalproex Sodium Er 250 Mg Tab.Er.24h) 250 mg PO TID [facility] Last Admin: 05/21/24 20:36 Dose: 250 mg Docusate Sodium (Docusate Sodium 100 Mg Capsule) 100 mg PO BEDTIME PRN PRN Reason: Constipation Lidocaine (Lidocaine 4 % Patch Adh..Patch) 1 patch TRANSDERMA DAILY [facility]; Protocol Last Admin: 05/21/24 08:22 Dose: 1 patch Magnesium Hydroxide (Milk Of Magnesia 30 Ml Oral.Susp) 30 ml PO DAILY PRN PRN Reason: Constipation Nicotine (Nicotine 14 Mg Patch.Td24) 14 mg TRANSDERMA DAILY [facility] Last Admin: 05/21/24 08:21 Dose: 14 mg Oxcarbazepine (Oxcarbazepine 300 Mg Tablet) 300 mg PO BID [facility] Last Admin: 05/21/24 20:36 Dose: 300 mg Quetiapine Fumarate (Quetiapine Fumarate 100 Mg Tablet) 100 mg PO TID [facility] Trazodone HCl (Trazodone Hcl 50 Mg Tablet) 50 mg PO BEDTIME MRX1 PRN PRN Reason: Insomnia Last Admin: 05/22/24 00:12 Dose: 50 mg Allergies Allergies Allergy/AdvReac Type Severity Reaction Status Date / Time Unable to Assess Allergy Verified 05/16/24 09:59 Assessment & Plan Assessment & Plan (1) Bipolar disorder: Status: Acute Code(s): F31.9 - Bipolar disorder, unspecified (2) Cognitive impairment: Status: Acute Code(s): R41.89 - Other symptoms and signs involving cognitive functions and awareness Plan Mr. Beckofrd is a 73 year-old male who resides at [facility]. He was sent from there via EMS due to subacute progression of agitation, irritability, ponding his fist and verbal threats of violence towards others which is not his usual. SW from reports that he has been declinining after he got covid few months ago. He has been seen by psychiatrist Dr. Joyner and recent med changes have been done but it is unclear which meds. Will contact Dr. Joyner for further collateral information. On the unit, pt presents as cooperative, irritable edge, strong views about politics, ethics and morals. He is not aware of his own medications nor what these are for. We discussed risks, benefits and alternative treatment options. It also appears that cognitively pt has declined. Note that MRI in March of this year does show significant atrophy and microvascular changes, pending MOCA and ACL. PLAN 05/19 consult to hospitalist for ARMANDO, HTN. will dc hydrocholothiazide for now. this typewriters functional tester called CONY Mccormick at [facility] awaiting call back 05/20 continue tx. 05/21 yesterday his Norvasc was increased up to 10 mg p.o. at still with high blood pressure we will monitor closely. We are increasing Depakote up to 250 mg p.o. t.i.d. for agitation and aggression 05/22 increase Seroquel up to 100 mg p.o. t.i.d. to target psychosis and mirza. Reason for continued inpatient stay Substantial Risk for: inability to function, rapid decompensation and med/psych decompensation Time Spent With Patient Time: Total time managing care of this patient today __20__ minutes.
[2024-05-22 10:01] VITALS: BP 181/88
[2024-05-22] MEDS: QUEtiapine Fumarate 100 MG TABLET PO ×2 (10:01→21:09)
[2024-05-22] MEDS: OXcarbazepine 300 MG TABLET PO ×2 (10:01→21:09)
[2024-05-22] MEDS: amLODIPine Besylate 10 MG TABLET PO (10:01)
[2024-05-22] MEDS: Lidocaine 4 % Patch ADH..PATCH 1 PATCH TRANSDERMA (10:02)
[2024-05-22] MEDS: Divalproex Sodium ER 250 MG TAB.ER.24H PO ×2 (10:02→21:09)
[2024-05-22] MEDS: Nicotine 14 MG PATCH.TD24 TRANSDERMA (10:02)
[2024-05-22] MEDS: LORazepam 1 MG TABLET 2 MG PO (11:15)
[2024-05-22] MEDS: OLANZapine ODT 10 MG TAB.RAPDIS TRANSLINGU (11:15)
[2024-05-22 12:14] VITALS: BP 109/67
--- NOTE | 2024-05-22 12:15 | PC.NURSE ---
This morning BP 181/88 and Michael was asymptomatic. Michael was agitated, paranoid, psychotic and hyperverbal. MD Goldstein notified. Given morning meds and 1x meds for agitation and recheck of BP 109/67 at 1214. MD Goldstein notified of subsequent blood pressure.
--- NOTE | 2024-05-22 15:47 | PC.NURSE ---
Held 1500 Seroquel and Depakote as Michael was sleeping; MD Goldstein notified.
[2024-05-22 20:00] VITALS: BP 126/60; PULSE 65; RESP 16; TEMP 36.6; O2SAT 95
[2024-05-22] MEDS: Atorvastatin Calcium 10 MG TABLET PO (21:09)
[2024-05-23 08:22] VITALS: BP 192/80; PULSE 86; RESP 18; TEMP 36.1; O2SAT 100
[2024-05-23] MEDS: Nicotine 14 MG PATCH.TD24 TRANSDERMA (09:01)
[2024-05-23] MEDS: Lidocaine 4 % Patch ADH..PATCH 1 PATCH TRANSDERMA (09:01)
[2024-05-23] MEDS: amLODIPine Besylate 10 MG TABLET PO (09:02)
[2024-05-23] MEDS: OXcarbazepine 300 MG TABLET PO (09:02)
[2024-05-23] MEDS: Divalproex Sodium ER 250 MG TAB.ER.24H PO ×3 (09:02→21:15)
[2024-05-23] MEDS: QUEtiapine Fumarate 100 MG TABLET PO ×3 (09:03→21:14)
--- NOTE | 2024-05-23 10:02 | P.PNPSI_ITS ---
Subjective Subjective Date of Service: 05/23/24 Reason For Visit: si Subjective Notes: Conditional Voluntary Interim History: Pt slept through the night. He was targeting peer who pt felt was disrespecting him. He did make verbal threats to harm him if he continues to approach him. Pt reports peer was trying to force me to believe in his anabaptist. He has not been assaultive towards anyone here on the unit. But he does have irritable edge. He denies SI/HI. Medication Compliance: Yes Side effects from medications: No Attending Groups: Intermittent Review of Systems Review of Systems Yes all other systems are reviewed and are negative Mental Status Exam Mental Status Exam Narrative: Apperance: wearing casual clothing, good hygiene, in NAD Behavior: cooperative, strong views which can come out of offensive but do not seem personal Psychomotor: bilateral hand action and resting tremor- quite prominent and affects his ability to hold objects Speech: mumbles at times, regular rate, but hyperverbal, loud at times, spontaneous TP: some derailment and circumstantial TC: complaining about politics and lack of values/moral principles in the world Mood: good Affect: irritable edge SI: denies HI: denies VH/AH: none Delusions: some suspiciousness about government agencies... but this may be his own prison views Insight/judgment: poor x 2. Memory/cog: alert, oriented x3,pending MOCA and ACL Diagnostics Vital Signs (24Hr): Vital Signs - 24 hr 05/22/24 12:14 05/22/24 20:00 05/23/24 08:22 Temperature 97.9 F 96.9 F Pulse Rate 65 86 Respiratory Rate 16 18 Blood Pressure 109/67 126/60 192/80 H Pulse Oximetry 95 100 Oxygen Delivery Method Room Air Room Air BMI result Body Mass Index 21.6 Labs 05/16/24 09:58 05/23/24 10:00 Medications Medications Current Medications Acetaminophen (Acetaminophen 325 Mg Tablet) 650 mg PO Q4H PRN PRN Reason: Mild Pain (Scale Score 1-4) Al Hydroxide/Mg Hydroxide (Magnesium Hydrox/Alum Hydrox 30 Ml Oral.Susp) 30 ml PO Q6H PRN PRN Reason: Heartburn/Nausea Amlodipine Besylate (Amlodipine Besylate 10 Mg Tablet) 10 mg PO DAILY [facility]; Protocol Last Admin: 05/23/24 09:02 Dose: 10 mg Atorvastatin Calcium (Atorvastatin Calcium 10 Mg Tablet) 10 mg PO BEDTIME [facility] Last Admin: 05/22/24 21:09 Dose: 10 mg Divalproex Sodium (Divalproex Sodium Er 250 Mg Tab.Er.24h) 250 mg PO TID [facility] Last Admin: 05/23/24 09:02 Dose: 250 mg Docusate Sodium (Docusate Sodium 100 Mg Capsule) 100 mg PO BEDTIME PRN PRN Reason: Constipation Lidocaine (Lidocaine 4 % Patch Adh..Patch) 1 patch TRANSDERMA DAILY [facility]; Protocol Last Admin: 05/23/24 09:01 Dose: 1 patch Magnesium Hydroxide (Milk Of Magnesia 30 Ml Oral.Susp) 30 ml PO DAILY PRN PRN Reason: Constipation Nicotine (Nicotine 14 Mg Patch.Td24) 14 mg TRANSDERMA DAILY [facility] Last Admin: 05/23/24 09:01 Dose: 14 mg Oxcarbazepine (Oxcarbazepine 300 Mg Tablet) 300 mg PO BID [facility] Last Admin: 05/23/24 09:02 Dose: 300 mg Quetiapine Fumarate (Quetiapine Fumarate 100 Mg Tablet) 100 mg PO TID [facility] Last Admin: 05/23/24 09:03 Dose: 100 mg Trazodone HCl (Trazodone Hcl 50 Mg Tablet) 50 mg PO BEDTIME MRX1 PRN PRN Reason: Insomnia Last Admin: 05/22/24 00:12 Dose: 50 mg Allergies Allergies Allergy/AdvReac Type Severity Reaction Status Date / Time Unable to Assess Allergy Verified 05/16/24 09:59 Assessment & Plan Assessment & Plan (1) Bipolar disorder: Status: Acute Code(s): F31.9 - Bipolar disorder, unspecified (2) Cognitive impairment: Status: Acute Code(s): R41.89 - Other symptoms and signs involving cognitive functions and awareness Plan Mr. Beckford is a 73 year-old male who resides at [facility]. He was sent from there via EMS due to subacute progression of agitation, irritability, ponding his fist and verbal threats of violence towards others which is not his usual. SW from reports that he has been declinining after he got covid few months ago. He has been seen by psychiatrist Dr. Joyner and recent med changes have been done but it is unclear which meds. Will contact Dr. Joyner for further collateral information. On the unit, pt presents as cooperative, irritable edge, strong views about politics, ethics and morals. He is not aware of his own medications nor what these are for. We discussed risks, benefits and alternative treatment options. It also appears that cognitively pt has declined. Note that MRI in March of this year does show significant atrophy and microvascular changes, pending MOCA and ACL. PLAN 05/19 consult to hospitalist for ARMANDO, HTN. will dc hydrocholothiazide for now. this sign writer hand called CONY Anny at [facility] awaiting call back 05/20 continue tx. 05/21 yesterday his Norvasc was increased up to 10 mg p.o. at still with high blood pressure we will monitor closely. We are increasing Depakote up to 250 mg p.o. t.i.d. for agitation and aggression 05/22 increase Seroquel up to 100 mg p.o. t.i.d. to target psychosis and mirza. 05/23 continue tx. BP continues to be high despite adding amlodipine 10mg po daily last week. SBP 190's. hospitalist to adjust HTN meds. Reason for continued inpatient stay Substantial Risk for: inability to function Time Spent With Patient Time: Total time managing care of this patient today ____ minutes.
[2024-05-23 10:16] LABS: Anion Gap 13 (12-20); Blood Urea Nitrogen 23 mg/dL (9-16); Calcium 9.4 mg/dL (8.4-10.2); Carbon Dioxide 25 mmol/L (22-29); Chloride 107 mmol/L (96-108); Creatinine Clr Calc Pharmacy 46.5; Estimated Glomerular Filt Rate 48; Glucose Random 86 mg/dL (60-115); Sodium 141 mmol/L (135-145)
[2024-05-23 11:18] VITALS: BP 190/80; PULSE 92
[2024-05-23] MEDS: Valsartan 40 MG TABLET PO ×2 (11:47→21:13)
[2024-05-23 12:47] VITALS: BP 140/70; PULSE 92
[2024-05-23 20:00] VITALS: BP 166/79; PULSE 90; RESP 20; TEMP 36.4; O2SAT 96
[2024-05-23 21:13] VITALS: BP 166/79
[2024-05-23] MEDS: Atorvastatin Calcium 10 MG TABLET PO (21:14)
[2024-05-23] MEDS: traZODone HCL 50 MG TABLET PO (21:14)
[2024-05-23] MEDS: HaloperidoL 5 MG TABLET PO (22:38)
[2024-05-23] MEDS: LORazepam 1 MG TABLET PO (22:38)
[2024-05-24 08:50] VITALS: BP 176/86; PULSE 86; RESP 18; TEMP 36.2; O2SAT 100
[2024-05-24] MEDS: Lidocaine 4 % Patch ADH..PATCH 1 PATCH TRANSDERMA (09:15)
[2024-05-24] MEDS: Nicotine 14 MG PATCH.TD24 TRANSDERMA (09:35)
[2024-05-24] MEDS: amLODIPine Besylate 10 MG TABLET PO (09:35)
[2024-05-24] MEDS: Divalproex Sodium ER 250 MG TAB.ER.24H PO ×3 (09:40→21:23)
[2024-05-24] MEDS: QUEtiapine Fumarate 100 MG TABLET PO ×2 (09:40→21:24)
[2024-05-24] MEDS: Valsartan 40 MG TABLET PO (09:40)
--- NOTE | 2024-05-24 10:54 | HO.PSYCHPN ---
Subjective Subjective Date of Service: 05/24/24 Reason For Visit: si Subjective Notes: Conditional Voluntary Interim History: Pt became more agitated last night, continued to target a peer who has not made much contact with him. Pt insists that peer is trying to convert him into his shinto. He is easily agitated and explosive. Pt was yelling screaming, threatening to harm peer. He denied SI. He took prn haldol and ativan with good effect. Diagnostics Vital Signs (24Hr): Vital Signs - 24 hr 05/23/24 11:18 05/23/24 12:47 05/23/24 20:00 Temperature 97.6 F Pulse Rate 92 92 90 Respiratory Rate 20 Blood Pressure 190/80 H 140/70 H 166/79 H Pulse Oximetry 96 Oxygen Delivery Method Room Air 05/23/24 21:13 05/24/24 08:50 Temperature 97.1 F Pulse Rate 86 Respiratory Rate 18 Blood Pressure 166/79 H 176/86 H Pulse Oximetry 100 Oxygen Delivery Method Room Air BMI result Body Mass Index 21.6 Labs 05/16/24 09:58 05/23/24 10:00 Labs: Laboratory Results - last 48 hr 05/23/24 10:00 Sodium 141 Potassium 4.0 Chloride 107 Carbon Dioxide 25 Anion Gap 13 BUN 23 H Creatinine 1.45 H Estim Creat Clear Calc 46.5 Estimated GFR 48 Random Glucose 86 Calcium 9.4 Medications Medications Current Medications Acetaminophen (Acetaminophen 325 Mg Tablet) 650 mg PO Q4H PRN PRN Reason: Mild Pain (Scale Score 1-4) Al Hydroxide/Mg Hydroxide (Magnesium Hydrox/Alum Hydrox 30 Ml Oral.Susp) 30 ml PO Q6H PRN PRN Reason: Heartburn/Nausea Amlodipine Besylate (Amlodipine Besylate 10 Mg Tablet) 10 mg PO DAILY [facility]; Protocol Last Admin: 05/24/24 09:35 Dose: 10 mg Atorvastatin Calcium (Atorvastatin Calcium 10 Mg Tablet) 10 mg PO BEDTIME [facility] Last Admin: 05/23/24 21:14 Dose: 10 mg Divalproex Sodium (Divalproex Sodium Er 250 Mg Tab.Er.24h) 250 mg PO TID [facility] Last Admin: 05/24/24 09:40 Dose: 250 mg Docusate Sodium (Docusate Sodium 100 Mg Capsule) 100 mg PO BEDTIME PRN PRN Reason: Constipation Lidocaine (Lidocaine 4 % Patch Adh..Patch) 1 patch TRANSDERMA DAILY [facility]; Protocol Last Admin: 05/23/24 09:01 Dose: 1 patch Magnesium Hydroxide (Milk Of Magnesia 30 Ml Oral.Susp) 30 ml PO DAILY PRN PRN Reason: Constipation Nicotine (Nicotine 14 Mg Patch.Td24) 14 mg TRANSDERMA DAILY [facility] Last Admin: 05/24/24 09:35 Dose: 14 mg Quetiapine Fumarate (Quetiapine Fumarate 100 Mg Tablet) 100 mg PO TID [facility] Last Admin: 05/24/24 09:40 Dose: 100 mg Trazodone HCl (Trazodone Hcl 50 Mg Tablet) 50 mg PO BEDTIME MRX1 PRN PRN Reason: Insomnia Last Admin: 05/23/24 21:14 Dose: 50 mg Valsartan (Valsartan 40 Mg Tablet) 40 mg PO DAILY [facility]; Protocol Last Admin: 05/24/24 09:40 Dose: 40 mg Valsartan (Valsartan 80 Mg Tablet) 80 mg PO BEDTIME [facility]; Protocol Allergies Allergies Allergy/AdvReac Type Severity Reaction Status Date / Time No Known Allergies Allergy Verified 05/23/24 22:28 Assessment & Plan Assessment & Plan (1) Bipolar disorder: Status: Acute Code(s): F31.9 - Bipolar disorder, unspecified (2) Cognitive impairment: Status: Acute Code(s): R41.89 - Other symptoms and signs involving cognitive functions and awareness Plan Mr. Beckford is a 73 year-old male who resides at [facility]. He was sent from there via EMS due to subacute progression of agitation, irritability, ponding his fist and verbal threats of violence towards others which is not his usual. SW from reports that he has been declinining after he got covid few months ago. He has been seen by psychiatrist Dr. Joyner and recent med changes have been done but it is unclear which meds. Will contact Dr. Joyner for further collateral information. On the unit, pt presents as cooperative, irritable edge, strong views about politics, ethics and morals. He is not aware of his own medications nor what these are for. We discussed risks, benefits and alternative treatment options. It also appears that cognitively pt has declined. Note that MRI in March of this year does show significant atrophy and microvascular changes, pending MOCA and ACL. PLAN 05/19 consult to hospitalist for ARMANDO, HTN. will dc hydrocholothiazide for now. this creative writer called CONY Mccormick at [facility] awaiting call back 05/20 continue tx. 05/21 yesterday his Norvasc was increased up to 10 mg p.o. at still with high blood pressure we will monitor closely. We are increasing Depakote up to 250 mg p.o. t.i.d. for agitation and aggression 05/22 increase Seroquel up to 100 mg p.o. t.i.d. to target psychosis and mirza. 05/23 continue tx. BP continues to be high despite adding amlodipine 10mg po daily last week. SBP 190's. hospitalist to adjust HTN meds. 05/24 will change seroquel to risperidone, will get depakote level tomorrow morning, along with ammonia. irritable and explosive. Reason for continued inpatient stay Substantial Risk for: harm to others and inability to function Time Spent With Patient Time: Total time managing care of this patient today ____ minutes.
[2024-05-24] MEDS: HaloperidoL 5 MG TABLET PO (14:40)
[2024-05-24] MEDS: LORazepam 1 MG TABLET PO (14:40)
--- NOTE | 2024-05-24 14:44 | PC.NURSE ---
Patient with a few outbursts today woith increased agitation, yelling and acting out. Bill continues to think that another patient is after him and calling him a menace to society.Sonia Reich NP visited and new orders obtained. Haldol 5mg and Ativan 1mg PO given at 1444. Patient at the table and is reading now.
[2024-05-24 20:00] VITALS: BP 125/62; PULSE 79; RESP 16; TEMP 36.9; O2SAT 97
[2024-05-24] MEDS: Atorvastatin Calcium 10 MG TABLET PO (21:24)
[2024-05-24] MEDS: Sennosides/Docusate Sodium TABLET 1 TAB PO (21:24)
[2024-05-24] MEDS: traZODone HCL 50 MG TABLET PO (21:24)
[2024-05-24 21:26] VITALS: BP 167/75
[2024-05-24] MEDS: Valsartan 80 MG TABLET PO (21:26)
[2024-05-24] MEDS: risperiDONE 1 MG TABLET PO ×2 (21:27→22:24)
[2024-05-25 08:11] LABS: Ammonia 45 umol/L (13-55)
[2024-05-25 08:23] VITALS: BP 183/86; PULSE 87; RESP 18; TEMP 36.1; O2SAT 100
[2024-05-25] MEDS: Lidocaine 4 % Patch ADH..PATCH 1 PATCH TRANSDERMA (08:27)
[2024-05-25] MEDS: Nicotine 14 MG PATCH.TD24 TRANSDERMA (08:28)
[2024-05-25] MEDS: risperiDONE 1 MG TABLET PO ×3 (08:33→21:12)
[2024-05-25] MEDS: Divalproex Sodium ER 250 MG TAB.ER.24H PO ×3 (08:33→21:13)
[2024-05-25] MEDS: amLODIPine Besylate 10 MG TABLET PO (08:33)
[2024-05-25] MEDS: Sennosides/Docusate Sodium TABLET 1 TAB PO ×2 (08:33→21:11)
[2024-05-25] MEDS: Valsartan 40 MG TABLET PO (08:33)
--- NOTE | 2024-05-25 10:55 | HO.PSYCHPN ---
Subjective Subjective Date of Service: 05/25/24 Reason For Visit: si Subjective Notes: Conditional Voluntary Interim History: Pt slept most of the night. He was agitated, accusatory towards peer who is not interacting much with him, but pt insists that he is trying to convert him into his baptism. Pt with irritable edge, at times having difficulty self-regulating, although open to take medications. He denies SI/HI. He is repetitive in his conversations, although somewhat oriented to situation and place, once calmer will complete MOCA and ACL. Mental Status Exam Mental Status Exam Narrative: Apperance: wearing casual clothing, good hygiene, in NAD Behavior: cooperative, strong views which can come out of offensive but do not seem personal Psychomotor: bilateral hand action and resting tremor- quite prominent and affects his ability to hold objects Speech: mumbles at times, regular rate, but hyperverbal, loud at times, spontaneous TP: some derailment and circumstantial TC: complaining about politics and lack of values/moral principles in the world Mood: good Affect: irritable edge SI: denies HI: denies VH/AH: none Delusions: some suspiciousness about government agencies... but this may be his own senior care views Insight/judgment: poor x 2. Memory/cog: alert, oriented x3,pending MOCA and ACL Diagnostics Vital Signs (24Hr): Vital Signs - 24 hr 05/24/24 20:00 05/24/24 21:26 05/25/24 08:23 Temperature 98.4 F 96.9 F Pulse Rate 79 87 Respiratory Rate 16 18 Blood Pressure 125/62 167/75 H 183/86 H Pulse Oximetry 97 100 Oxygen Delivery Method Room Air Room Air BMI result Body Mass Index 21.6 Labs 05/16/24 09:58 05/23/24 10:00 Labs: Laboratory Results - last 48 hr 05/25/24 07:59 Ammonia 45 Valproic Acid 42.0 L Medications Medications Current Medications Acetaminophen (Acetaminophen 325 Mg Tablet) 650 mg PO Q4H PRN PRN Reason: Mild Pain (Scale Score 1-4) Al Hydroxide/Mg Hydroxide (Magnesium Hydrox/Alum Hydrox 30 Ml Oral.Susp) 30 ml PO Q6H PRN PRN Reason: Heartburn/Nausea Amlodipine Besylate (Amlodipine Besylate 10 Mg Tablet) 10 mg PO DAILY [facility]; Protocol Last Admin: 05/25/24 08:33 Dose: 10 mg Atorvastatin Calcium (Atorvastatin Calcium 10 Mg Tablet) 10 mg PO BEDTIME [facility] Last Admin: 05/24/24 21:24 Dose: 10 mg Divalproex Sodium (Divalproex Sodium Er 250 Mg Tab.Er.24h) 250 mg PO TID [facility] Last Admin: 05/25/24 08:33 Dose: 250 mg Lidocaine (Lidocaine 4 % Patch Adh..Patch) 1 patch TRANSDERMA DAILY [facility]; Protocol Last Admin: 05/25/24 08:27 Dose: 1 patch Magnesium Hydroxide (Milk Of Magnesia 30 Ml Oral.Susp) 30 ml PO DAILY PRN PRN Reason: Constipation Nicotine (Nicotine 14 Mg Patch.Td24) 14 mg TRANSDERMA DAILY [facility] Last Admin: 05/25/24 08:28 Dose: 14 mg Nicotine Polacrilex (Nicotine Polacrilex 2 Mg Gum) 2 mg BUCCAL Q2H PRN PRN Reason: Nicotine Cravings Quetiapine Fumarate (Quetiapine Fumarate 100 Mg Tablet) 100 mg PO TID PRN PRN Reason: moderate agitation Last Admin: 05/24/24 21:24 Dose: 100 mg Risperidone (Risperidone 1 Mg Tablet) 1 mg PO TID [facility] Last Admin: 05/25/24 08:33 Dose: 1 mg Senna/Docusate Sodium (Sennosides/Docusate Sodium Tablet) 1 tab PO BID [facility] Last Admin: 05/25/24 08:33 Dose: 1 tab Trazodone HCl (Trazodone Hcl 50 Mg Tablet) 50 mg PO BEDTIME MRX1 PRN PRN Reason: Insomnia Last Admin: 05/24/24 21:24 Dose: 50 mg Valsartan (Valsartan 40 Mg Tablet) 40 mg PO DAILY [facility]; Protocol Last Admin: 05/25/24 08:33 Dose: 40 mg Valsartan (Valsartan 80 Mg Tablet) 80 mg PO BEDTIME [facility]; Protocol Last Admin: 05/24/24 21:26 Dose: 80 mg Allergies Allergies Allergy/AdvReac Type Severity Reaction Status Date / Time No Known Allergies Allergy Verified 05/23/24 22:28 Assessment & Plan Assessment & Plan (1) Bipolar disorder: Status: Acute Code(s): F31.9 - Bipolar disorder, unspecified (2) Cognitive impairment: Status: Acute Code(s): R41.89 - Other symptoms and signs involving cognitive functions and awareness Plan Mr. Beckford is a 73 year-old male who resides at [facility]. He was sent from there via EMS due to subacute progression of agitation, irritability, ponding his fist and verbal threats of violence towards others which is not his usual. SW from reports that he has been declinining after he got covid few months ago. He has been seen by psychiatrist Dr. Joyner and recent med changes have been done but it is unclear which meds. Will contact Dr. Joyner for further collateral information. On the unit, pt presents as cooperative, irritable edge, strong views about politics, ethics and morals. He is not aware of his own medications nor what these are for. We discussed risks, benefits and alternative treatment options. It also appears that cognitively pt has declined. Note that MRI in March of this year does show significant atrophy and microvascular changes, pending MOCA and ACL. PLAN 05/19 consult to hospitalist for ARMANDO, HTN. will dc hydrocholothiazide for now. this procedure writer called CONY Mccormick at [facility] awaiting call back 05/20 continue tx. 05/21 yesterday his Norvasc was increased up to 10 mg p.o. at still with high blood pressure we will monitor closely. We are increasing Depakote up to 250 mg p.o. t.i.d. for agitation and aggression 05/22 increase Seroquel up to 100 mg p.o. t.i.d. to target psychosis and mirza. 05/23 continue tx. BP continues to be high despite adding amlodipine 10mg po daily last week. SBP 190's. hospitalist to adjust HTN meds. 05/24 will change seroquel to risperidone, will get depakote level tomorrow morning, along with ammonia. irritable and explosive. 05/25 continue current medication. Reason for continued inpatient stay Substantial Risk for: inability to function Time Spent With Patient Time: Total time managing care of this patient today ____ minutes.
[2024-05-25 12:26] VITALS: BP 130/57; PULSE 92; RESP 16; TEMP 36.2; O2SAT 99
[2024-05-25 15:51] VITALS: BP 171/85; PULSE 94; RESP 16; TEMP 36.2; O2SAT 98
[2024-05-25] MEDS: Propranolol HCL 10 MG TABLET 5 MG PO ×2 (15:55→21:12)
[2024-05-25 20:00] VITALS: BP 183/79; PULSE 92; RESP 18; TEMP 36; O2SAT 98
[2024-05-25] MEDS: QUEtiapine Fumarate 100 MG TABLET PO (21:11)
[2024-05-25 21:12] VITALS: BP 155/96; PULSE 88
[2024-05-25] MEDS: Atorvastatin Calcium 10 MG TABLET PO (21:12)
[2024-05-25] MEDS: Valsartan 80 MG TABLET PO (21:14)
[2024-05-26] VITALS (8 sets, daily range): BP systolic 124–155; BP diastolic 61–96; PULSE 75–93; RESP 16–17; TEMP 35.8–36.2; O2SAT 98–99; BMI 21.5
[2024-05-26] MEDS: risperiDONE 1 MG TABLET PO ×3 (08:38→21:00)
[2024-05-26] MEDS: Sennosides/Docusate Sodium TABLET 1 TAB PO (08:38)
[2024-05-26] MEDS: Propranolol HCL 10 MG TABLET 5 MG PO ×3 (08:38→21:01)
[2024-05-26] MEDS: amLODIPine Besylate 10 MG TABLET PO (08:38)
[2024-05-26] MEDS: Divalproex Sodium ER 250 MG TAB.ER.24H PO ×3 (08:39→21:00)
[2024-05-26] MEDS: Nicotine 14 MG PATCH.TD24 TRANSDERMA (08:41)
[2024-05-26] MEDS: Lidocaine 4 % Patch ADH..PATCH 1 PATCH TRANSDERMA (08:43)
[2024-05-26] MEDS: Valsartan 40 MG TABLET PO (09:44)
--- NOTE | 2024-05-26 11:37 | HO.PSYCHPN ---
Subjective Subjective Date of Service: 05/26/24 Reason For Visit: si Interim History: Pt less labile; making jokes upon approach; some sarcasm and irritability about political topics. No yelling or screaming, threatening today. muttering under his breath at times. He denied SI. Medication Compliance: Yes Side effects from medications: No Attending Groups: Intermittent Review of Systems Acute medical concerns: No Review of Systems Review of Systems Yes all other systems are reviewed and are negative Mental Status Exam Mental Status Exam Narrative: Apperance: wearing casual clothing, good hygiene, in NAD Behavior: cooperative, strong views which can come out of offensive but do not seem personal Psychomotor: bilateral hand action and resting tremor- quite prominent and affects his ability to hold objects Speech: mumbles at times, regular rate, but hyperverbal, loud at times, spontaneous TP: some derailment and circumstantial TC: complaining about politics and lack of values/moral principles in the world Mood: good Affect: irritable edge SI: denies HI: denies VH/AH: none Delusions: some suspiciousness about government agencies... but this may be his own half-way views Insight/judgment: poor x 2. Memory/cog: alert, oriented x3,pending MOCA and ACL Patient Appearance: Appropriate Patient Orientation: Person and Situation Level of Consciousness: Awake and Restless Patient Behavior: Guarded Mood Description: Labile Affect Description: Constricted Patient Cognition Impaired: Yes Ability to Follow Directions: Good Speech Pattern: Clear Memory Description: Immediate Impaired Diagnostics Vital Signs (24Hr): Vital Signs - 24 hr 05/25/24 12:26 05/25/24 15:51 05/25/24 20:00 Temperature 97.1 F 97.1 F 96.8 F Pulse Rate 92 94 92 Respiratory Rate 16 16 18 Blood Pressure 130/57 L 171/85 H 183/79 H Pulse Oximetry 99 98 98 Oxygen Delivery Method Room Air Room Air Room Air 05/25/24 21:12 05/26/24 00:00 05/26/24 04:00 Temperature Pulse Rate 88 88 90 Respiratory Rate 16 16 Blood Pressure 155/96 H 155/96 H 144/68 H Pulse Oximetry 99 98 Oxygen Delivery Method Room Air Room Air 05/26/24 08:00 Temperature 97.2 F Pulse Rate 93 Respiratory Rate 17 Blood Pressure 124/68 Pulse Oximetry 98 Oxygen Delivery Method Room Air BMI result Body Mass Index 21.6 Labs 05/16/24 09:58 05/23/24 10:00 Labs: Laboratory Results - last 48 hr 05/25/24 07:59 Ammonia 45 Valproic Acid 42.0 L Medications Medications Current Medications Acetaminophen (Acetaminophen 325 Mg Tablet) 650 mg PO Q4H PRN PRN Reason: Mild Pain (Scale Score 1-4) Al Hydroxide/Mg Hydroxide (Magnesium Hydrox/Alum Hydrox 30 Ml Oral.Susp) 30 ml PO Q6H PRN PRN Reason: Heartburn/Nausea Amlodipine Besylate (Amlodipine Besylate 10 Mg Tablet) 10 mg PO DAILY [facility]; Protocol Last Admin: 05/26/24 08:38 Dose: 10 mg Atorvastatin Calcium (Atorvastatin Calcium 10 Mg Tablet) 10 mg PO BEDTIME [facility] Last Admin: 05/25/24 21:12 Dose: 10 mg Divalproex Sodium (Divalproex Sodium Er 250 Mg Tab.Er.24h) 250 mg PO TID [facility] Last Admin: 05/26/24 08:39 Dose: 250 mg Lidocaine (Lidocaine 4 % Patch Adh..Patch) 1 patch TRANSDERMA DAILY [facility]; Protocol Last Admin: 05/26/24 08:43 Dose: 1 patch Loperamide HCl (Loperamide Hcl 2 Mg Capsule) 4 mg PO Q6H PRN PRN Reason: diarrhea Magnesium Hydroxide (Milk Of Magnesia 30 Ml Oral.Susp) 30 ml PO DAILY PRN PRN Reason: Constipation Nicotine (Nicotine 14 Mg Patch.Td24) 14 mg TRANSDERMA DAILY [facility] Last Admin: 05/26/24 08:41 Dose: 14 mg Nicotine Polacrilex (Nicotine Polacrilex 2 Mg Gum) 2 mg BUCCAL Q2H PRN PRN Reason: Nicotine Cravings Propranolol HCl (Propranolol Hcl 10 Mg Tablet) 5 mg PO TID [facility]; Protocol Last Admin: 05/26/24 08:38 Dose: 5 mg Quetiapine Fumarate (Quetiapine Fumarate 100 Mg Tablet) 100 mg PO TID PRN PRN Reason: moderate agitation Last Admin: 05/25/24 21:11 Dose: 100 mg Risperidone (Risperidone 1 Mg Tablet) 1 mg PO TID [facility] Last Admin: 05/26/24 08:38 Dose: 1 mg Senna/Docusate Sodium (Sennosides/Docusate Sodium Tablet) 1 tab PO BID [facility] Last Admin: 05/26/24 08:38 Dose: 1 tab Trazodone HCl (Trazodone Hcl 50 Mg Tablet) 50 mg PO BEDTIME MRX1 PRN PRN Reason: Insomnia Last Admin: 05/24/24 21:24 Dose: 50 mg Valsartan (Valsartan 40 Mg Tablet) 40 mg PO DAILY [facility]; Protocol Last Admin: 05/26/24 09:44 Dose: 40 mg Valsartan (Valsartan 80 Mg Tablet) 80 mg PO BEDTIME [facility]; Protocol Last Admin: 05/25/24 21:14 Dose: 80 mg Allergies Allergies Allergy/AdvReac Type Severity Reaction Status Date / Time No Known Allergies Allergy Verified 05/23/24 22:28 Assessment & Plan Assessment & Plan (1) Bipolar disorder: Status: Acute Code(s): F31.9 - Bipolar disorder, unspecified (2) Cognitive impairment: Status: Acute Code(s): R41.89 - Other symptoms and signs involving cognitive functions and awareness Plan Mr. Beckford is a 73 year-old male who [facility]. He was sent from there via EMS due to subacute progression of agitation, irritability, ponding his fist and verbal threats of violence towards others which is not his usual. SW from reports that he has been declinining after he got covid few months ago. He has been seen by psychiatrist Dr. Joyner and recent med changes have been done but it is unclear which meds. Will contact Dr. Joyner for further collateral information. On the unit, pt presents as cooperative, irritable edge, strong views about politics, ethics and morals. He is not aware of his own medications nor what these are for. We discussed risks, benefits and alternative treatment options. It also appears that cognitively pt has declined. Note that MRI in March of this year does show significant atrophy and microvascular changes, pending MOCA and ACL. PLAN 05/19 consult to hospitalist for ARMANDO, HTN. will dc hydrocholothiazide for now. this insurance writer called CONY Mccormick at [facility] awaiting call back 05/20 continue tx. 05/21 yesterday his Norvasc was increased up to 10 mg p.o. at still with high blood pressure we will monitor closely. We are increasing Depakote up to 250 mg p.o. t.i.d. for agitation and aggression 05/22 increase Seroquel up to 100 mg p.o. t.i.d. to target psychosis and mirza. 05/23 continue tx. BP continues to be high despite adding amlodipine 10mg po daily last week. SBP 190's. hospitalist to adjust HTN meds. 05/24 will change seroquel to risperidone, will get depakote level tomorrow morning, along with ammonia. irritable and explosive. 05/26 no changes, continue tx plan ammonia level 45. valproic level 42 low Reason for continued inpatient stay Substantial Risk for: harm to self, harm to others and inability to function Time Spent With Patient Time: Total time managing care of this patient today ____ minutes.
[2024-05-26] MEDS: QUEtiapine Fumarate 100 MG TABLET PO (20:57)
[2024-05-26] MEDS: Valsartan 80 MG TABLET PO (20:58)
[2024-05-26] MEDS: Atorvastatin Calcium 10 MG TABLET PO (20:58)
[2024-05-26] MEDS: traZODone HCL 50 MG TABLET PO (20:59)
[2024-05-26] MEDS: Loperamide HCl 2 MG CAPSULE 4 MG PO (21:07)
[2024-05-27] VITALS (11 sets, daily range): BP systolic 98–172; BP diastolic 57–93; PULSE 84–92; RESP 16–18; TEMP 36.1–36.8; O2SAT 94–97
[2024-05-27] MEDS: Nicotine 14 MG PATCH.TD24 TRANSDERMA (08:59)
[2024-05-27] MEDS: Propranolol HCL 10 MG TABLET 5 MG PO ×3 (09:03→21:22)
[2024-05-27] MEDS: Valsartan 40 MG TABLET PO (09:05)
[2024-05-27] MEDS: Divalproex Sodium ER 250 MG TAB.ER.24H PO ×3 (09:06→21:20)
[2024-05-27] MEDS: risperiDONE 1 MG TABLET PO ×3 (09:06→21:22)
[2024-05-27] MEDS: Lidocaine 4 % Patch ADH..PATCH 1 PATCH TRANSDERMA (09:08)
[2024-05-27] MEDS: amLODIPine Besylate 10 MG TABLET PO (09:08)
[2024-05-27] MEDS: Sennosides/Docusate Sodium TABLET 1 TAB PO ×2 (09:09→21:21)
--- NOTE | 2024-05-27 09:54 | HO.PSYCHPN ---
Subjective Subjective Date of Service: 05/27/24 Reason For Visit: si Interim History: Pt had some difficulty staying asleep. He appears calmer. He does ramble as he talks and his thought proces is disorganized, some loose associations. He reports there good and bad people here, however, his affect is much less intense and less explosive. It appears some slight improvement in action/resting tremor with propanolol. No SI/HI. He is repetitive in his conversations, although somewhat oriented to situation and place, once calmer will complete MOCA and ACL. Review of Systems Review of Systems Yes all other systems are reviewed and are negative Mental Status Exam Mental Status Exam Narrative: Apperance: wearing casual clothing, good hygiene, in NAD Behavior: cooperative, strong views which can come out of offensive but do not seem personal Psychomotor: bilateral hand action and resting tremor- quite prominent and affects his ability to hold objects Speech: mumbles at times, regular rate, but hyperverbal, loud at times, spontaneous TP: some derailment and circumstantial TC: complaining about politics and lack of values/moral principles in the world Mood: good Affect: irritable edge SI: denies HI: denies VH/AH: none Delusions: some suspiciousness about government agencies... but this may be his own long-term views Insight/judgment: poor x 2. Memory/cog: alert, oriented x3,pending MOCA and ACL Diagnostics Vital Signs (24Hr): Vital Signs - 24 hr 05/26/24 12:00 05/26/24 15:47 05/26/24 20:00 Temperature 97.1 F 96.9 F 96.5 F L Pulse Rate 92 91 90 Respiratory Rate 17 17 16 Blood Pressure 128/62 141/65 H 146/71 H Pulse Oximetry 99 98 99 Oxygen Delivery Method Room Air Room Air Room Air 05/26/24 20:58 05/26/24 21:01 05/27/24 00:00 Temperature Pulse Rate 75 84 Respiratory Rate 16 Blood Pressure 137/61 137/61 172/77 H Pulse Oximetry 97 Oxygen Delivery Method Room Air 05/27/24 04:00 05/27/24 08:26 05/27/24 09:03 Temperature 98.3 F Pulse Rate 92 87 87 Respiratory Rate 18 16 Blood Pressure 153/60 H 98/58 L 98/58 L Pulse Oximetry 97 97 Oxygen Delivery Method Room Air Room Air 05/27/24 09:05 05/27/24 09:08 Temperature Pulse Rate Respiratory Rate Blood Pressure 98/58 L 98/58 L Pulse Oximetry Oxygen Delivery Method BMI result Body Mass Index 21.5 Labs 05/16/24 09:58 05/23/24 10:00 Medications Medications Current Medications Acetaminophen (Acetaminophen 325 Mg Tablet) 650 mg PO Q4H PRN PRN Reason: Mild Pain (Scale Score 1-4) Al Hydroxide/Mg Hydroxide (Magnesium Hydrox/Alum Hydrox 30 Ml Oral.Susp) 30 ml PO Q6H PRN PRN Reason: Heartburn/Nausea Amlodipine Besylate (Amlodipine Besylate 10 Mg Tablet) 10 mg PO DAILY [facility]; Protocol Last Admin: 05/27/24 09:08 Dose: 10 mg Atorvastatin Calcium (Atorvastatin Calcium 10 Mg Tablet) 10 mg PO BEDTIME [facility] Last Admin: 05/26/24 20:58 Dose: 10 mg Divalproex Sodium (Divalproex Sodium Er 250 Mg Tab.Er.24h) 250 mg PO TID [facility] Last Admin: 05/27/24 09:06 Dose: 250 mg Lidocaine (Lidocaine 4 % Patch Adh..Patch) 1 patch TRANSDERMA DAILY [facility]; Protocol Last Admin: 05/27/24 09:08 Dose: 1 patch Loperamide HCl (Loperamide Hcl 2 Mg Capsule) 4 mg PO Q6H PRN PRN Reason: diarrhea Last Admin: 05/26/24 21:07 Dose: 4 mg Magnesium Hydroxide (Milk Of Magnesia 30 Ml Oral.Susp) 30 ml PO DAILY PRN PRN Reason: Constipation Nicotine (Nicotine 14 Mg Patch.Td24) 14 mg TRANSDERMA DAILY [facility] Last Admin: 05/27/24 08:59 Dose: 14 mg Nicotine Polacrilex (Nicotine Polacrilex 2 Mg Gum) 2 mg BUCCAL Q2H PRN PRN Reason: Nicotine Cravings Propranolol HCl (Propranolol Hcl 10 Mg Tablet) 5 mg PO TID [facility]; Protocol Last Admin: 05/27/24 09:03 Dose: 5 mg Quetiapine Fumarate (Quetiapine Fumarate 100 Mg Tablet) 100 mg PO TID PRN PRN Reason: moderate agitation Last Admin: 05/26/24 20:57 Dose: 100 mg Risperidone (Risperidone 1 Mg Tablet) 1 mg PO TID [facility] Last Admin: 05/27/24 09:06 Dose: 1 mg Senna/Docusate Sodium (Sennosides/Docusate Sodium Tablet) 1 tab PO BID [facility] Last Admin: 05/27/24 09:09 Dose: 1 tab Trazodone HCl (Trazodone Hcl 50 Mg Tablet) 50 mg PO BEDTIME MRX1 PRN PRN Reason: Insomnia Last Admin: 05/26/24 20:59 Dose: 50 mg Valsartan (Valsartan 40 Mg Tablet) 40 mg PO DAILY [facility]; Protocol Last Admin: 05/27/24 09:05 Dose: 40 mg Valsartan (Valsartan 80 Mg Tablet) 80 mg PO BEDTIME [facility]; Protocol Last Admin: 05/26/24 20:58 Dose: 80 mg Allergies Allergies Allergy/AdvReac Type Severity Reaction Status Date / Time No Known Allergies Allergy Verified 05/23/24 22:28 Assessment & Plan Assessment & Plan (1) Bipolar disorder: Status: Acute Code(s): F31.9 - Bipolar disorder, unspecified (2) Cognitive impairment: Status: Acute Code(s): R41.89 - Other symptoms and signs involving cognitive functions and awareness Plan Mr. Beckford is a 73 year-old male who resides at [facility]. He was sent from there via EMS due to subacute progression of agitation, irritability, ponding his fist and verbal threats of violence towards others which is not his usual. SW from reports that he has been declinining after he got covid few months ago. He has been seen by psychiatrist Dr. Joyner and recent med changes have been done but it is unclear which meds. Will contact Dr. Joyner for further collateral information. On the unit, pt presents as cooperative, irritable edge, strong views about politics, ethics and morals. He is not aware of his own medications nor what these are for. We discussed risks, benefits and alternative treatment options. It also appears that cognitively pt has declined. Note that MRI in March of this year does show significant atrophy and microvascular changes, pending MOCA and ACL. PLAN 05/19 consult to hospitalist for ARMANDO, HTN. will dc hydrocholothiazide for now. this aligner typewriter called CONY Anny at [facility] awaiting call back 05/20 continue tx. 05/21 yesterday his Norvasc was increased up to 10 mg p.o. at still with high blood pressure we will monitor closely. We are increasing Depakote up to 250 mg p.o. t.i.d. for agitation and aggression 05/22 increase Seroquel up to 100 mg p.o. t.i.d. to target psychosis and mirza. 05/23 continue tx. BP continues to be high despite adding amlodipine 10mg po daily last week. SBP 190's. hospitalist to adjust HTN meds. 05/24 will change seroquel to risperidone, will get depakote level tomorrow morning, along with ammonia. irritable and explosive. 05/25 continue current medication. 05/27 continue tx. depakote level on 05/25 42, ammonia 45. will schedule trazodone for sleep. he may benefit from aricept. Reason for continued inpatient stay Substantial Risk for: inability to function Time Spent With Patient Time: Total time managing care of this patient today ____ minutes.
[2024-05-27] MEDS: traZODone HCL 50 MG TABLET PO (21:20)
[2024-05-27] MEDS: Atorvastatin Calcium 10 MG TABLET PO (21:21)
[2024-05-27] MEDS: QUEtiapine Fumarate 100 MG TABLET PO (21:21)
[2024-05-28] VITALS (7 sets, daily range): BP systolic 128–169; BP diastolic 60–83; PULSE 71–90; RESP 16–18; TEMP 36.1–36.4; O2SAT 96–98
[2024-05-28] MEDS: Sennosides/Docusate Sodium TABLET 1 TAB PO (08:16)
[2024-05-28] MEDS: amLODIPine Besylate 10 MG TABLET PO (08:16)
[2024-05-28] MEDS: Valsartan 40 MG TABLET PO (08:16)
[2024-05-28] MEDS: Propranolol HCL 10 MG TABLET 5 MG PO ×3 (08:16→21:15)
[2024-05-28] MEDS: risperiDONE 1 MG TABLET PO ×3 (08:16→21:14)
[2024-05-28] MEDS: Divalproex Sodium ER 250 MG TAB.ER.24H PO ×3 (08:17→21:13)
[2024-05-28] MEDS: Nicotine 14 MG PATCH.TD24 TRANSDERMA (09:42)
[2024-05-28] MEDS: Lidocaine 4 % Patch ADH..PATCH 1 PATCH TRANSDERMA (09:43)
--- NOTE | 2024-05-28 10:45 | HO.PSYCHPN ---
Subjective Subjective Date of Service: 05/28/24 Reason For Visit: si Interim History: wants a cigarette. 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 otherwise no requests or complaints. [facility] Mental Status Exam Mental Status Exam Narrative: Apperance: wearing casual clothing, good hygiene, in NAD Behavior: cooperative, strong views which can come out of offensive but do not seem personal Psychomotor: bilateral hand action and resting tremor- quite prominent and affects his ability to hold objects Speech: mumbles at times, regular rate, but hyperverbal, loud at times, spontaneous TP: some derailment and circumstantial TC: complaining about politics and lack of values/moral principles in the world Mood: good Affect: irritable edge SI: denies HI: denies VH/AH: none Delusions: some suspiciousness about government agencies... but this may be his own residential views Insight/judgment: poor x 2. Memory/cog: alert, oriented x3,pending MOCA and ACL Diagnostics Vital Signs (24Hr): Vital Signs - 24 hr 05/27/24 12:00 05/27/24 15:08 05/27/24 16:30 Temperature Pulse Rate 90 92 87 Respiratory Rate 16 16 Blood Pressure 117/57 L 130/86 121/71 Pulse Oximetry 94 97 Oxygen Delivery Method Room Air Room Air 05/27/24 20:00 05/27/24 21:22 05/28/24 00:00 Temperature 96.9 F Pulse Rate 88 88 86 Respiratory Rate 16 18 Blood Pressure 123/93 H 123/93 H 140/64 H Pulse Oximetry 95 98 Oxygen Delivery Method Room Air Room Air 05/28/24 04:00 05/28/24 08:00 Temperature 96.9 F Pulse Rate 84 90 Respiratory Rate 16 17 Blood Pressure 142/73 H 153/70 H Pulse Oximetry 97 97 Oxygen Delivery Method Room Air Room Air BMI result Body Mass Index 21.5 Labs 05/16/24 09:58 05/23/24 10:00 Medications Medications Current Medications Acetaminophen (Acetaminophen 325 Mg Tablet) 650 mg PO Q4H PRN PRN Reason: Mild Pain (Scale Score 1-4) Al Hydroxide/Mg Hydroxide (Magnesium Hydrox/Alum Hydrox 30 Ml Oral.Susp) 30 ml PO Q6H PRN PRN Reason: Heartburn/Nausea Amlodipine Besylate (Amlodipine Besylate 10 Mg Tablet) 10 mg PO DAILY [facility]; Protocol Last Admin: 05/28/24 08:16 Dose: 10 mg Atorvastatin Calcium (Atorvastatin Calcium 10 Mg Tablet) 10 mg PO BEDTIME [facility] Last Admin: 05/27/24 21:21 Dose: 10 mg Divalproex Sodium (Divalproex Sodium Er 250 Mg Tab.Er.24h) 250 mg PO TID [facility] Last Admin: 05/28/24 08:17 Dose: 250 mg Lidocaine (Lidocaine 4 % Patch Adh..Patch) 1 patch TRANSDERMA DAILY [facility]; Protocol Last Admin: 05/28/24 09:43 Dose: 1 patch Loperamide HCl (Loperamide Hcl 2 Mg Capsule) 4 mg PO Q6H PRN PRN Reason: diarrhea Last Admin: 05/26/24 21:07 Dose: 4 mg Magnesium Hydroxide (Milk Of Magnesia 30 Ml Oral.Susp) 30 ml PO DAILY PRN PRN Reason: Constipation Nicotine (Nicotine 14 Mg Patch.Td24) 14 mg TRANSDERMA DAILY [facility] Last Admin: 05/28/24 09:42 Dose: 14 mg Nicotine Polacrilex (Nicotine Polacrilex 2 Mg Gum) 2 mg BUCCAL Q2H PRN PRN Reason: Nicotine Cravings Propranolol HCl (Propranolol Hcl 10 Mg Tablet) 5 mg PO TID [facility]; Protocol Last Admin: 05/28/24 08:16 Dose: 5 mg Quetiapine Fumarate (Quetiapine Fumarate 100 Mg Tablet) 100 mg PO TID PRN PRN Reason: moderate agitation Last Admin: 05/27/24 21:21 Dose: 100 mg Risperidone (Risperidone 1 Mg Tablet) 1 mg PO TID [facility] Last Admin: 05/28/24 08:16 Dose: 1 mg Senna/Docusate Sodium (Sennosides/Docusate Sodium Tablet) 1 tab PO BID [facility] Last Admin: 05/28/24 08:16 Dose: 1 tab Trazodone HCl (Trazodone Hcl 50 Mg Tablet) 50 mg PO BEDTIME [facility] Last Admin: 05/27/24 21:20 Dose: 50 mg Trazodone HCl (Trazodone Hcl 50 Mg Tablet) 50 mg PO BEDTIME PRN PRN Reason: Insomnia Valsartan (Valsartan 40 Mg Tablet) 40 mg PO DAILY [facility]; Protocol Last Admin: 05/28/24 08:16 Dose: 40 mg Valsartan (Valsartan 80 Mg Tablet) 80 mg PO BEDTIME [facility]; Protocol Last Admin: 05/26/24 20:58 Dose: 80 mg Allergies Allergies Allergy/AdvReac Type Severity Reaction Status Date / Time No Known Allergies Allergy Verified 05/23/24 22:28 Assessment & Plan Assessment & Plan (1) Bipolar disorder: Status: Acute Code(s): F31.9 - Bipolar disorder, unspecified (2) Cognitive impairment: Status: Acute Code(s): R41.89 - Other symptoms and signs involving cognitive functions and awareness Plan Mr. Beckford is a 73 year-old male who resides at [facility]. He was sent from there via EMS due to subacute progression of agitation, irritability, ponding his fist and verbal threats of violence towards others which is not his usual. SW from reports that he has been declinining after he got covid few months ago. He has been seen by psychiatrist Dr. Joyner and recent med changes have been done but it is unclear which meds. Will contact Dr. Joyner for further collateral information. On the unit, pt presents as cooperative, irritable edge, strong views about politics, ethics and morals. He is not aware of his own medications nor what these are for. We discussed risks, benefits and alternative treatment options. It also appears that cognitively pt has declined. Note that MRI in March of this year does show significant atrophy and microvascular changes, pending MOCA and ACL. PLAN 05/19 consult to hospitalist for ARMANDO, HTN. will dc hydrocholothiazide for now. this medical technical writer called CONY Hurste at [facility] awaiting call back 05/20 continue tx. 05/21 yesterday his Norvasc was increased up to 10 mg p.o. at still with high blood pressure we will monitor closely. We are increasing Depakote up to 250 mg p.o. t.i.d. for agitation and aggression 05/22 increase Seroquel up to 100 mg p.o. t.i.d. to target psychosis and mirza. 05/23 continue tx. BP continues to be high despite adding amlodipine 10mg po daily last week. SBP 190's. hospitalist to adjust HTN meds. 05/24 will change seroquel to risperidone, will get depakote level tomorrow morning, along with ammonia. irritable and explosive. 05/25 continue current medication. 05/27 continue tx. depakote level on 05/25 42, ammonia 45. will schedule trazodone for sleep. he may benefit from aricept. 09/05: stably cantankerous. continue current mgmt. Reason for continued inpatient stay Substantial Risk for: rapid decompensation Time Spent With Patient Time: Total time managing care of this patient today ____ minutes.
[2024-05-28] MEDS: QUEtiapine Fumarate 100 MG TABLET PO (21:12)
[2024-05-28] MEDS: Atorvastatin Calcium 10 MG TABLET PO (21:13)
[2024-05-28] MEDS: traZODone HCL 50 MG TABLET PO (21:13)
[2024-05-29] VITALS (7 sets, daily range): BP systolic 135–160; BP diastolic 66–77; PULSE 71–89; RESP 16–18; TEMP 36.1–36.3; O2SAT 94–97
[2024-05-29] MEDS: Valsartan 40 MG TABLET PO (08:52)
[2024-05-29] MEDS: Propranolol HCL 10 MG TABLET 5 MG PO ×3 (08:52→21:31)
[2024-05-29] MEDS: risperiDONE 1 MG TABLET PO ×3 (08:53→21:34)
[2024-05-29] MEDS: Divalproex Sodium ER 250 MG TAB.ER.24H PO ×3 (08:53→21:31)
[2024-05-29] MEDS: Nicotine 14 MG PATCH.TD24 TRANSDERMA (08:53)
[2024-05-29] MEDS: amLODIPine Besylate 10 MG TABLET PO (08:53)
[2024-05-29] MEDS: Lidocaine 4 % Patch ADH..PATCH 1 PATCH TRANSDERMA (08:56)
[2024-05-29] MEDS: Sennosides/Docusate Sodium TABLET 1 TAB PO ×2 (08:58→21:34)
--- NOTE | 2024-05-29 10:48 | HO.PSYCHPN ---
Subjective Subjective Date of Service: 05/29/24 Reason For Visit: si Interim History: calm, cooperative. per staff, no issues aside from sialorrhea. Mental Status Exam Mental Status Exam Narrative: Apperance: wearing casual clothing, good hygiene, in NAD Behavior: cooperative, strong views which can come out of offensive but do not seem personal Psychomotor: bilateral hand action and resting tremor- quite prominent and affects his ability to hold objects Speech: mumbles at times, regular rate, but hyperverbal, loud at times, spontaneous TP: some derailment and circumstantial TC: complaining about politics and lack of values/moral principles in the world Mood: good Affect: irritable edge SI: denies HI: denies VH/AH: none Delusions: some suspiciousness about government agencies... but this may be his own long term care administrator views Insight/judgment: poor x 2. Memory/cog: alert, oriented x3,pending MOCA and ACL Diagnostics Vital Signs (24Hr): Vital Signs - 24 hr 05/28/24 12:00 05/28/24 15:45 05/28/24 20:00 Temperature 97.2 F 97.6 F Pulse Rate 71 86 86 Respiratory Rate 17 17 16 Blood Pressure 128/60 144/67 H 169/83 H Pulse Oximetry 97 96 96 Oxygen Delivery Method Room Air Room Air Room Air 05/28/24 21:15 05/29/24 00:00 05/29/24 03:17 Temperature Pulse Rate 86 84 84 Respiratory Rate 18 16 Blood Pressure 169/83 H 160/77 H 135/75 Pulse Oximetry 94 96 Oxygen Delivery Method Room Air Room Air 05/29/24 08:49 Temperature 96.9 F Pulse Rate 89 Respiratory Rate 16 Blood Pressure 145/66 H Pulse Oximetry 96 Oxygen Delivery Method Room Air BMI result Body Mass Index 21.5 Labs 05/16/24 09:58 05/23/24 10:00 Medications Medications Current Medications Acetaminophen (Acetaminophen 325 Mg Tablet) 650 mg PO Q4H PRN PRN Reason: Mild Pain (Scale Score 1-4) Al Hydroxide/Mg Hydroxide (Magnesium Hydrox/Alum Hydrox 30 Ml Oral.Susp) 30 ml PO Q6H PRN PRN Reason: Heartburn/Nausea Amlodipine Besylate (Amlodipine Besylate 10 Mg Tablet) 10 mg PO DAILY [facility]; Protocol Last Admin: 05/29/24 08:53 Dose: 10 mg Atorvastatin Calcium (Atorvastatin Calcium 10 Mg Tablet) 10 mg PO BEDTIME [facility] Last Admin: 05/28/24 21:13 Dose: 10 mg Divalproex Sodium (Divalproex Sodium Er 250 Mg Tab.Er.24h) 250 mg PO TID [facility] Last Admin: 05/29/24 08:53 Dose: 250 mg Lidocaine (Lidocaine 4 % Patch Adh..Patch) 1 patch TRANSDERMA DAILY [facility]; Protocol Last Admin: 05/29/24 08:56 Dose: 1 patch Loperamide HCl (Loperamide Hcl 2 Mg Capsule) 4 mg PO Q6H PRN PRN Reason: diarrhea Last Admin: 05/26/24 21:07 Dose: 4 mg Magnesium Hydroxide (Milk Of Magnesia 30 Ml Oral.Susp) 30 ml PO DAILY PRN PRN Reason: Constipation Nicotine (Nicotine 14 Mg Patch.Td24) 14 mg TRANSDERMA DAILY [facility] Last Admin: 05/29/24 08:53 Dose: 14 mg Nicotine Polacrilex (Nicotine Polacrilex 2 Mg Gum) 2 mg BUCCAL Q2H PRN PRN Reason: Nicotine Cravings Propranolol HCl (Propranolol Hcl 10 Mg Tablet) 5 mg PO TID [facility]; Protocol Last Admin: 05/29/24 08:52 Dose: 5 mg Quetiapine Fumarate (Quetiapine Fumarate 100 Mg Tablet) 100 mg PO TID PRN PRN Reason: moderate agitation Last Admin: 05/28/24 21:12 Dose: 100 mg Risperidone (Risperidone 1 Mg Tablet) 1 mg PO TID [facility] Last Admin: 05/29/24 08:53 Dose: 1 mg Senna/Docusate Sodium (Sennosides/Docusate Sodium Tablet) 1 tab PO BID [facility] Last Admin: 05/29/24 08:58 Dose: 1 tab Trazodone HCl (Trazodone Hcl 50 Mg Tablet) 50 mg PO BEDTIME [facility] Last Admin: 05/28/24 21:13 Dose: 50 mg Trazodone HCl (Trazodone Hcl 50 Mg Tablet) 50 mg PO BEDTIME PRN PRN Reason: Insomnia Valsartan (Valsartan 40 Mg Tablet) 40 mg PO DAILY [facility]; Protocol Last Admin: 05/29/24 08:52 Dose: 40 mg Valsartan (Valsartan 80 Mg Tablet) 80 mg PO BEDTIME [facility]; Protocol Last Admin: 05/26/24 20:58 Dose: 80 mg Allergies Allergies Allergy/AdvReac Type Severity Reaction Status Date / Time No Known Allergies Allergy Verified 05/23/24 22:28 Assessment & Plan Assessment & Plan (1) Bipolar disorder: Status: Acute Code(s): F31.9 - Bipolar disorder, unspecified (2) Cognitive impairment: Status: Acute Code(s): R41.89 - Other symptoms and signs involving cognitive functions and awareness Plan Mr. Beckford is a 73 year-old male who resides at [facility]. He was sent from there via EMS due to subacute progression of agitation, irritability, ponding his fist and verbal threats of violence towards others which is not his usual. SW from reports that he has been declinining after he got covid few months ago. He has been seen by psychiatrist Dr. Joyner and recent med changes have been done but it is unclear which meds. Will contact Dr. Joyner for further collateral information. On the unit, pt presents as cooperative, irritable edge, strong views about politics, ethics and morals. He is not aware of his own medications nor what these are for. We discussed risks, benefits and alternative treatment options. It also appears that cognitively pt has declined. Note that MRI in March of this year does show significant atrophy and microvascular changes, pending MOCA and ACL. PLAN 05/19 consult to hospitalist for ARMANDO, HTN. will dc hydrocholothiazide for now. this contract writer called CONY Mccormick at [facility] awaiting call back 05/20 continue tx. 05/21 yesterday his Norvasc was increased up to 10 mg p.o. at still with high blood pressure we will monitor closely. We are increasing Depakote up to 250 mg p.o. t.i.d. for agitation and aggression 05/22 increase Seroquel up to 100 mg p.o. t.i.d. to target psychosis and mirza. 05/23 continue tx. BP continues to be high despite adding amlodipine 10mg po daily last week. SBP 190's. hospitalist to adjust HTN meds. 05/24 will change seroquel to risperidone, will get depakote level tomorrow morning, along with ammonia. irritable and explosive. 05/25 continue current medication. 05/27 continue tx. depakote level on 05/25 42, ammonia 45. will schedule trazodone for sleep. he may benefit from aricept. 09/05: stably cantankerous. continue current mgmt. 05/29: start glycopyrrolate 1 TID for sialorrhea. stable. continue current mgmt otherwise. Reason for continued inpatient stay Substantial Risk for: harm to self and harm to others Time Spent With Patient Time: Total time managing care of this patient today ____ minutes.
[2024-05-29] MEDS: Glycopyrrolate 1 MG TABLET PO ×2 (14:36→21:33)
[2024-05-29] MEDS: QUEtiapine Fumarate 100 MG TABLET PO (21:31)
[2024-05-29] MEDS: Atorvastatin Calcium 10 MG TABLET PO (21:34)
[2024-05-29] MEDS: traZODone HCL 50 MG TABLET PO (21:35)
[2024-05-30] VITALS: BP 144/76; PULSE 81; RESP 16; TEMP 36.2; O2SAT 96
[2024-05-30 04:00] VITALS: BP 150/71; PULSE 71; RESP 16; TEMP 36.2; O2SAT 96
[2024-05-30 08:29] VITALS: BP 140/81; PULSE 83; RESP 20; TEMP 36.6; O2SAT 98
[2024-05-30] MEDS: Nicotine 14 MG PATCH.TD24 TRANSDERMA (08:34)
[2024-05-30] MEDS: Lidocaine 4 % Patch ADH..PATCH 1 PATCH TRANSDERMA (08:35)
[2024-05-30] MEDS: Propranolol HCL 10 MG TABLET 5 MG PO ×3 (08:36→21:50)
[2024-05-30] MEDS: Sennosides/Docusate Sodium TABLET 1 TAB PO ×2 (08:36→21:11)
[2024-05-30] MEDS: risperiDONE 1 MG TABLET PO (08:36)
[2024-05-30] MEDS: Glycopyrrolate 1 MG TABLET PO ×2 (08:36→21:11)
[2024-05-30] MEDS: amLODIPine Besylate 10 MG TABLET PO (08:37)
[2024-05-30] MEDS: Divalproex Sodium ER 250 MG TAB.ER.24H PO ×3 (08:37→21:11)
[2024-05-30] MEDS: Valsartan 40 MG TABLET PO (08:37)
--- NOTE | 2024-05-30 11:49 | HO.PSYCHPN ---
Subjective Subjective Date of Service: 05/30/24 Reason For Visit: si Subjective Notes: Conditional Voluntary Interim History: Pt slept about 6 hrs. Pt tremulous, worsening with risperidone. He is also drooling. Behaviorally, pt is doing much better in terms of explosive behaviors and paranoid ideas towards peer. He is visible on the unit. No SI/HI. No overt psychosis. He does tend to rumble about movies, politics. Themes of morally correct people, versus others who are not. Diagnostics Vital Signs (24Hr): Vital Signs - 24 hr 05/29/24 14:36 05/29/24 16:00 05/29/24 20:00 Temperature 97.2 F 97.3 F Pulse Rate 75 75 71 Respiratory Rate 16 16 Blood Pressure 146/67 H 138/68 139/73 Pulse Oximetry 96 97 Oxygen Delivery Method Room Air Room Air 05/29/24 21:31 05/30/24 00:00 05/30/24 04:00 Temperature 97.1 F 97.1 F Pulse Rate 71 81 71 Respiratory Rate 16 16 Blood Pressure 139/73 144/76 H 150/71 H Pulse Oximetry 96 96 Oxygen Delivery Method Room Air Room Air 05/30/24 08:29 Temperature 97.9 F Pulse Rate 83 Respiratory Rate 20 Blood Pressure 140/81 H Pulse Oximetry 98 Oxygen Delivery Method Room Air BMI result Body Mass Index 21.5 Labs 05/16/24 09:58 05/23/24 10:00 Medications Medications Current Medications Acetaminophen (Acetaminophen 325 Mg Tablet) 650 mg PO Q4H PRN PRN Reason: Mild Pain (Scale Score 1-4) Al Hydroxide/Mg Hydroxide (Magnesium Hydrox/Alum Hydrox 30 Ml Oral.Susp) 30 ml PO Q6H PRN PRN Reason: Heartburn/Nausea Amlodipine Besylate (Amlodipine Besylate 10 Mg Tablet) 10 mg PO DAILY [facility]; Protocol Last Admin: 05/30/24 08:37 Dose: 10 mg Atorvastatin Calcium (Atorvastatin Calcium 10 Mg Tablet) 10 mg PO BEDTIME [facility] Last Admin: 05/29/24 21:34 Dose: 10 mg Divalproex Sodium (Divalproex Sodium Er 250 Mg Tab.Er.24h) 250 mg PO TID [facility] Last Admin: 05/30/24 08:37 Dose: 250 mg Glycopyrrolate (Glycopyrrolate 1 Mg Tablet) 1 mg PO TID [facility] Last Admin: 05/30/24 08:36 Dose: 1 mg Lidocaine (Lidocaine 4 % Patch Adh..Patch) 1 patch TRANSDERMA DAILY [facility]; Protocol Last Admin: 05/30/24 08:35 Dose: 1 patch Loperamide HCl (Loperamide Hcl 2 Mg Capsule) 4 mg PO Q6H PRN PRN Reason: diarrhea Last Admin: 05/26/24 21:07 Dose: 4 mg Magnesium Hydroxide (Milk Of Magnesia 30 Ml Oral.Susp) 30 ml PO DAILY PRN PRN Reason: Constipation Nicotine (Nicotine 14 Mg Patch.Td24) 14 mg TRANSDERMA DAILY [facility] Last Admin: 05/30/24 08:34 Dose: 14 mg Nicotine Polacrilex (Nicotine Polacrilex 2 Mg Gum) 2 mg BUCCAL Q2H PRN PRN Reason: Nicotine Cravings Propranolol HCl (Propranolol Hcl 10 Mg Tablet) 5 mg PO TID [facility]; Protocol Last Admin: 05/30/24 08:36 Dose: 5 mg Quetiapine Fumarate (Quetiapine Fumarate 100 Mg Tablet) 100 mg PO TID PRN PRN Reason: moderate agitation Last Admin: 05/29/24 21:31 Dose: 100 mg Risperidone (Risperidone 1 Mg Tablet) 1 mg PO TID [facility] Last Admin: 05/30/24 08:36 Dose: 1 mg Senna/Docusate Sodium (Sennosides/Docusate Sodium Tablet) 1 tab PO BID [facility] Last Admin: 05/30/24 08:36 Dose: 1 tab Trazodone HCl (Trazodone Hcl 50 Mg Tablet) 50 mg PO BEDTIME [facility] Last Admin: 05/29/24 21:35 Dose: 50 mg Trazodone HCl (Trazodone Hcl 50 Mg Tablet) 50 mg PO BEDTIME PRN PRN Reason: Insomnia Valsartan (Valsartan 40 Mg Tablet) 40 mg PO DAILY [facility]; Protocol Last Admin: 05/30/24 08:37 Dose: 40 mg Valsartan (Valsartan 80 Mg Tablet) 80 mg PO BEDTIME [facility]; Protocol Last Admin: 05/26/24 20:58 Dose: 80 mg Allergies Allergies Allergy/AdvReac Type Severity Reaction Status Date / Time No Known Allergies Allergy Verified 05/23/24 22:28 Assessment & Plan Assessment & Plan (1) Bipolar disorder: Status: Acute Code(s): F31.9 - Bipolar disorder, unspecified (2) Cognitive impairment: Status: Acute Code(s): R41.89 - Other symptoms and signs involving cognitive functions and awareness Plan Mr. Beckford is a 73 year-old male who resides at [facility]. He was sent from there via EMS due to subacute progression of agitation, irritability, ponding his fist and verbal threats of violence towards others which is not his usual. SW from reports that he has been declinining after he got covid few months ago. He has been seen by psychiatrist Dr. Joyner and recent med changes have been done but it is unclear which meds. Will contact Dr. Joyner for further collateral information. On the unit, pt presents as cooperative, irritable edge, strong views about politics, ethics and morals. He is not aware of his own medications nor what these are for. We discussed risks, benefits and alternative treatment options. It also appears that cognitively pt has declined. Note that MRI in March of this year does show significant atrophy and microvascular changes, pending MOCA and ACL. PLAN 05/19 consult to hospitalist for ARMANDO, HTN. will dc hydrocholothiazide for now. 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 05/21 yesterday his Norvasc was increased up to 10 mg p.o. at still with high blood pressure we will monitor closely. We are increasing Depakote up to 250 mg p.o. t.i.d. for agitation and aggression 05/22 increase Seroquel up to 100 mg p.o. t.i.d. to target psychosis and mirza. 05/23 continue tx. BP continues to be high despite adding amlodipine 10mg po daily last week. SBP 190's. hospitalist to adjust HTN meds. 05/24 will change seroquel to risperidone, will get depakote level tomorrow morning, along with ammonia. irritable and explosive. 05/25 continue current medication. 05/27 continue tx. depakote level on 05/25 42, ammonia 45. will schedule trazodone for sleep. he may benefit from aricept. 09/05: stably cantankerous. continue current mgmt. 05/29: start glycopyrrolate 1 TID for sialorrhea. stable. continue current mgmt otherwise. 05/30 will lower risperidone to 0.5mg po TID. May want to consider olanzapine if drooling continues and worsening tremors with risperidone even at low doses. glycopyrrolate 1mg po BID, now that dose of risperidone is less. Reason for continued inpatient stay Substantial Risk for: inability to function Time Spent With Patient Time: Total time managing care of this patient today ____ minutes.
[2024-05-30 15:53] VITALS: BP 146/67; PULSE 82
[2024-05-30] MEDS: risperiDONE 0.5 MG TABLET PO ×2 (15:55→21:10)
[2024-05-30] MEDS: traZODone HCL 50 MG TABLET PO (21:11)
[2024-05-30] MEDS: Atorvastatin Calcium 10 MG TABLET PO (21:11)
[2024-05-30 21:50] VITALS: BP 145/78; PULSE 70
[2024-05-30 22:00] VITALS: BP 145/78; PULSE 70; RESP 18; TEMP 36.4; O2SAT 98
[2024-05-31] MEDS: QUEtiapine Fumarate 100 MG TABLET PO ×2 (01:05→21:08)
[2024-05-31 08:00] VITALS: BP 131/64; PULSE 84; RESP 18; TEMP 36.8; O2SAT 96
[2024-05-31] MEDS: Glycopyrrolate 1 MG TABLET PO ×2 (08:04→21:06)
[2024-05-31] MEDS: risperiDONE 0.5 MG TABLET PO ×3 (08:04→21:06)
[2024-05-31] MEDS: amLODIPine Besylate 10 MG TABLET PO (08:04)
[2024-05-31] MEDS: Valsartan 40 MG TABLET PO (08:04)
[2024-05-31] MEDS: Sennosides/Docusate Sodium TABLET 1 TAB PO ×2 (08:04→21:07)
[2024-05-31] MEDS: Divalproex Sodium ER 250 MG TAB.ER.24H PO ×3 (08:04→21:07)
[2024-05-31] MEDS: Nicotine 14 MG PATCH.TD24 TRANSDERMA (08:05)
[2024-05-31] MEDS: Lidocaine 4 % Patch ADH..PATCH 1 PATCH TRANSDERMA (08:06)
[2024-05-31 15:01] VITALS: BP 133/61; PULSE 85
[2024-05-31] MEDS: Propranolol HCL 10 MG TABLET 5 MG PO ×2 (15:01→21:09)
--- NOTE | 2024-05-31 16:35 | P.PNPSI_ITS ---
Subjective Subjective Date of Service: 05/31/24 Reason For Visit: si Interim History: no change in presentation. c/o drooling. per staff, copious saliva. tremors. Mental Status Exam Mental Status Exam Narrative: Apperance: wearing casual clothing, good hygiene, in NAD Behavior: cooperative, strong views which can come out of offensive but do not seem personal Psychomotor: bilateral hand action and resting tremor- quite prominent and affects his ability to hold objects Speech: mumbles at times, regular rate, but hyperverbal, spontaneous TP: some derailment and circumstantial TC: complaining about politics and lack of values/moral principles in the world Mood: good Affect: pleasant SI: denies HI: denies VH/AH: none Delusions: some suspiciousness about government agencies... 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 Memory/cog: alert, oriented x3,pending MOCA and ACL Diagnostics Vital Signs (24Hr): Vital Signs - 24 hr 05/30/24 21:50 05/30/24 22:00 05/31/24 08:00 Temperature 97.5 F 98.2 F Pulse Rate 70 70 84 Respiratory Rate 18 18 Blood Pressure 145/78 H 145/78 H 131/64 Pulse Oximetry 98 96 Oxygen Delivery Method Room Air Room Air 05/31/24 15:01 Temperature Pulse Rate 85 Respiratory Rate Blood Pressure 133/61 Pulse Oximetry Oxygen Delivery Method BMI result Body Mass Index 21.5 Labs 05/16/24 09:58 05/23/24 10:00 Medications Medications Current Medications Acetaminophen (Acetaminophen 325 Mg Tablet) 650 mg PO Q4H PRN PRN Reason: Mild Pain (Scale Score 1-4) Al Hydroxide/Mg Hydroxide (Magnesium Hydrox/Alum Hydrox 30 Ml Oral.Susp) 30 ml PO Q6H PRN PRN Reason: Heartburn/Nausea Amlodipine Besylate (Amlodipine Besylate 10 Mg Tablet) 10 mg PO DAILY [facility]; Protocol Last Admin: 05/31/24 08:04 Dose: 10 mg Atorvastatin Calcium (Atorvastatin Calcium 10 Mg Tablet) 10 mg PO BEDTIME [facility] Last Admin: 05/30/24 21:11 Dose: 10 mg Divalproex Sodium (Divalproex Sodium Er 250 Mg Tab.Er.24h) 250 mg PO TID [facility] Last Admin: 05/31/24 15:05 Dose: 250 mg Glycopyrrolate (Glycopyrrolate 1 Mg Tablet) 1 mg PO BID [facility] Last Admin: 05/31/24 08:04 Dose: 1 mg Lidocaine (Lidocaine 4 % Patch Adh..Patch) 1 patch TRANSDERMA DAILY [facility]; Protocol Last Admin: 05/31/24 08:06 Dose: 1 patch Loperamide HCl (Loperamide Hcl 2 Mg Capsule) 4 mg PO Q6H PRN PRN Reason: diarrhea Last Admin: 05/26/24 21:07 Dose: 4 mg Magnesium Hydroxide (Milk Of Magnesia 30 Ml Oral.Susp) 30 ml PO DAILY PRN PRN Reason: Constipation Nicotine (Nicotine 14 Mg Patch.Td24) 14 mg TRANSDERMA DAILY [facility] Last Admin: 05/31/24 08:05 Dose: 14 mg Nicotine Polacrilex (Nicotine Polacrilex 2 Mg Gum) 2 mg BUCCAL Q2H PRN PRN Reason: Nicotine Cravings Propranolol HCl (Propranolol Hcl 10 Mg Tablet) 5 mg PO TID [facility]; Protocol Last Admin: 05/31/24 15:01 Dose: 5 mg Quetiapine Fumarate (Quetiapine Fumarate 100 Mg Tablet) 100 mg PO TID PRN PRN Reason: moderate agitation Last Admin: 05/31/24 01:05 Dose: 100 mg Risperidone (Risperidone 0.5 Mg Tablet) 0.5 mg PO TID [facility] Last Admin: 05/31/24 15:01 Dose: 0.5 mg Senna/Docusate Sodium (Sennosides/Docusate Sodium Tablet) 1 tab PO BID [facility] Last Admin: 05/31/24 08:04 Dose: 1 tab Trazodone HCl (Trazodone Hcl 50 Mg Tablet) 50 mg PO BEDTIME [facility] Last Admin: 05/30/24 21:11 Dose: 50 mg Trazodone HCl (Trazodone Hcl 50 Mg Tablet) 50 mg PO BEDTIME PRN PRN Reason: Insomnia Valsartan (Valsartan 40 Mg Tablet) 40 mg PO DAILY [facility]; Protocol Last Admin: 05/31/24 08:04 Dose: 40 mg Valsartan (Valsartan 80 Mg Tablet) 80 mg PO BEDTIME [facility]; Protocol Last Admin: 05/26/24 20:58 Dose: 80 mg Allergies Allergies Allergy/AdvReac Type Severity Reaction Status Date / Time No Known Allergies Allergy Verified 05/23/24 22:28 Assessment & Plan Assessment & Plan (1) Bipolar disorder: Status: Acute Code(s): F31.9 - Bipolar disorder, unspecified (2) Cognitive impairment: Status: Acute Code(s): R41.89 - Other symptoms and signs involving cognitive functions and awareness Plan Mr. Beckford is a 73 year-old male who resides at [facility]. He was sent from there via EMS due to subacute progression of agitation, irritability, ponding his fist and verbal threats of violence towards others which is not his usual. SW from reports that he has been declinining after he got covid few months ago. He has been seen by psychiatrist Dr. Joyner and recent med changes have been done but it is unclear which meds. Will contact Dr. Joyner for further collateral information. On the unit, pt presents as cooperative, irritable edge, strong views about politics, ethics and morals. He is not aware of his own medications nor what these are for. We discussed risks, benefits and alternative treatment options. It also appears that cognitively pt has declined. Note that MRI in March of this year does show significant atrophy and microvascular changes, pending MOCA and ACL. PLAN 05/19 consult to hospitalist for ARMANDO, HTN. will dc hydrocholothiazide for now. 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 05/21 yesterday his Norvasc was increased up to 10 mg p.o. at still with high blood pressure we will monitor closely. We are increasing Depakote up to 250 mg p.o. t.i.d. for agitation and aggression 05/22 increase Seroquel up to 100 mg p.o. t.i.d. to target psychosis and mirza. 05/23 continue tx. BP continues to be high despite adding amlodipine 10mg po daily last week. SBP 190's. hospitalist to adjust HTN meds. 05/24 will change seroquel to risperidone, will get depakote level tomorrow morning, along with ammonia. irritable and explosive. 05/25 continue current medication. 05/27 continue tx. depakote level on 05/25 42, ammonia 45. will schedule trazodone for sleep. he may benefit from aricept. 09/05: stably cantankerous. continue current mgmt. 05/29: start glycopyrrolate 1 TID for sialorrhea. stable. continue current mgmt otherwise. 05/30 will lower risperidone to 0.5mg po TID. May want to consider olanzapine if drooling continues and worsening tremors with risperidone even at low doses. glycopyrrolate 1mg po BID, now that dose of risperidone is less. 05/31: one more day on present regimen, change to zyprexa tomorrow if no improvement. Reason for continued inpatient stay Substantial Risk for: harm to others Time Spent With Patient Time: Total time managing care of this patient today ____ minutes.
[2024-05-31] MEDS: traZODone HCL 50 MG TABLET PO ×2 (21:07→21:09)
[2024-05-31] MEDS: Atorvastatin Calcium 10 MG TABLET PO (21:07)
[2024-05-31 21:09] VITALS: BP 137/63; PULSE 71
[2024-05-31 22:00] VITALS: BP 137/63; PULSE 71; RESP 16; TEMP 36.2; O2SAT 98
[2024-06-01 08:05] VITALS: BP 141/64; PULSE 74; RESP 16; TEMP 35.7; O2SAT 98
[2024-06-01] MEDS: Lidocaine 4 % Patch ADH..PATCH 1 PATCH TRANSDERMA (08:18)
[2024-06-01] MEDS: Nicotine 14 MG PATCH.TD24 TRANSDERMA (08:19)
[2024-06-01] MEDS: Sennosides/Docusate Sodium TABLET 1 TAB PO ×2 (08:22→19:50)
[2024-06-01] MEDS: amLODIPine Besylate 10 MG TABLET PO (08:22)
[2024-06-01] MEDS: Valsartan 40 MG TABLET PO (08:22)
[2024-06-01] MEDS: Divalproex Sodium ER 250 MG TAB.ER.24H PO ×3 (08:22→19:50)
[2024-06-01] MEDS: Propranolol HCL 10 MG TABLET 5 MG PO ×3 (08:23→19:51)
[2024-06-01] MEDS: risperiDONE 0.5 MG TABLET PO (08:24)
[2024-06-01] MEDS: Glycopyrrolate 1 MG TABLET PO (08:24)
[2024-06-01 14:13] VITALS: BP 129/68; PULSE 84
--- NOTE | 2024-06-01 15:48 | P.PNPSI_ITS ---
Subjective Subjective Date of Service: 06/01/24 Reason For Visit: si Interim History: rambling and salivating. per staff, no change in presentation. slept only 2 hours. Mental Status Exam Mental Status Exam Narrative: Apperance: wearing casual clothing, good hygiene, in NAD Behavior: cooperative, strong views which can come out of offensive but do not seem personal Psychomotor: bilateral hand action and resting tremor- quite prominent and affects his ability to hold objects Speech: mumbles at times, regular rate, but hyperverbal, spontaneous TP: some derailment and circumstantial TC: complaining about politics and lack of values/moral principles in the world Mood: good Affect: pleasant SI: denies HI: denies VH/AH: none Delusions: some suspiciousness about government agencies... 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 Memory/cog: alert, oriented x3,pending MOCA and ACL Diagnostics Vital Signs (24Hr): Vital Signs - 24 hr 05/31/24 21:09 05/31/24 22:00 06/01/24 08:05 Temperature 97.2 F 96.3 F L Pulse Rate 71 71 74 Respiratory Rate 16 16 Blood Pressure 137/63 137/63 141/64 H Pulse Oximetry 98 98 Oxygen Delivery Method Room Air Room Air 06/01/24 14:13 Temperature Pulse Rate 84 Respiratory Rate Blood Pressure 129/68 Pulse Oximetry Oxygen Delivery Method BMI result Body Mass Index 21.5 Labs 05/16/24 09:58 05/23/24 10:00 Medications Medications Current Medications Acetaminophen (Acetaminophen 325 Mg Tablet) 650 mg PO Q4H PRN PRN Reason: Mild Pain (Scale Score 1-4) Al Hydroxide/Mg Hydroxide (Magnesium Hydrox/Alum Hydrox 30 Ml Oral.Susp) 30 ml PO Q6H PRN PRN Reason: Heartburn/Nausea Amlodipine Besylate (Amlodipine Besylate 10 Mg Tablet) 10 mg PO DAILY [facility]; Protocol Last Admin: 06/01/24 08:22 Dose: 10 mg Atorvastatin Calcium (Atorvastatin Calcium 10 Mg Tablet) 10 mg PO BEDTIME [facility] Last Admin: 05/31/24 21:07 Dose: 10 mg Divalproex Sodium (Divalproex Sodium Er 250 Mg Tab.Er.24h) 250 mg PO TID [facility] Last Admin: 06/01/24 14:28 Dose: 250 mg Lidocaine (Lidocaine 4 % Patch Adh..Patch) 1 patch TRANSDERMA DAILY [facility]; Protocol Last Admin: 06/01/24 08:18 Dose: 1 patch Loperamide HCl (Loperamide Hcl 2 Mg Capsule) 4 mg PO Q6H PRN PRN Reason: diarrhea Last Admin: 05/26/24 21:07 Dose: 4 mg Magnesium Hydroxide (Milk Of Magnesia 30 Ml Oral.Susp) 30 ml PO DAILY PRN PRN Reason: Constipation Nicotine (Nicotine 14 Mg Patch.Td24) 14 mg TRANSDERMA DAILY [facility] Last Admin: 06/01/24 08:19 Dose: 14 mg Nicotine Polacrilex (Nicotine Polacrilex 2 Mg Gum) 2 mg BUCCAL Q2H PRN PRN Reason: Nicotine Cravings Olanzapine (Olanzapine 2.5 Mg Tablet) 2.5 mg PO BID [facility] Propranolol HCl (Propranolol Hcl 10 Mg Tablet) 5 mg PO TID [facility]; Protocol Last Admin: 06/01/24 14:27 Dose: 5 mg Quetiapine Fumarate (Quetiapine Fumarate 100 Mg Tablet) 100 mg PO TID PRN PRN Reason: moderate agitation Last Admin: 05/31/24 21:08 Dose: 100 mg Senna/Docusate Sodium (Sennosides/Docusate Sodium Tablet) 1 tab PO BID [facility] Last Admin: 06/01/24 08:22 Dose: 1 tab Trazodone HCl (Trazodone Hcl 50 Mg Tablet) 50 mg PO BEDTIME [facility] Last Admin: 05/31/24 21:07 Dose: 50 mg Trazodone HCl (Trazodone Hcl 50 Mg Tablet) 50 mg PO BEDTIME PRN PRN Reason: Insomnia Last Admin: 05/31/24 21:09 Dose: 50 mg Valsartan (Valsartan 40 Mg Tablet) 40 mg PO DAILY [facility]; Protocol Last Admin: 06/01/24 08:22 Dose: 40 mg Valsartan (Valsartan 80 Mg Tablet) 80 mg PO BEDTIME [facility]; Protocol Last Admin: 05/26/24 20:58 Dose: 80 mg Allergies Allergies Allergy/AdvReac Type Severity Reaction Status Date / Time No Known Allergies Allergy Verified 05/23/24 22:28 Assessment & Plan Assessment & Plan (1) Bipolar disorder: Status: Acute Code(s): F31.9 - Bipolar disorder, unspecified (2) Cognitive impairment: Status: Acute Code(s): R41.89 - Other symptoms and signs involving cognitive functions and awareness Plan Mr. Beckford is a 73 year-old male who resides at [facility]. He was sent from there via EMS due to subacute progression of agitation, irritability, ponding his fist and verbal threats of violence towards others which is not his usual. SW from reports that he has been declinining after he got covid few months ago. He has been seen by psychiatrist Dr. Joyner and recent med changes have been done but it is unclear which meds. Will contact Dr. Joyner for further collateral information. On the unit, pt presents as cooperative, irritable edge, strong views about politics, ethics and morals. He is not aware of his own medications nor what these are for. We discussed risks, benefits and alternative treatment options. It also appears that cognitively pt has declined. Note that MRI in March of this year does show significant atrophy and microvascular changes, pending MOCA and ACL. PLAN 05/19 consult to hospitalist for ARMANDO, HTN. will dc hydrocholothiazide for now. 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 05/21 yesterday his Norvasc was increased up to 10 mg p.o. at still with high blood pressure we will monitor closely. We are increasing Depakote up to 250 mg p.o. t.i.d. for agitation and aggression 05/22 increase Seroquel up to 100 mg p.o. t.i.d. to target psychosis and mirza. 05/23 continue tx. BP continues to be high despite adding amlodipine 10mg po daily last week. SBP 190's. hospitalist to adjust HTN meds. 05/24 will change seroquel to risperidone, will get depakote level tomorrow morning, along with ammonia. irritable and explosive. 05/25 continue current medication. 05/27 continue tx. depakote level on 05/25 42, ammonia 45. will schedule trazodone for sleep. he may benefit from aricept. 09/05: stably cantankerous. continue current mgmt. 05/29: start glycopyrrolate 1 TID for sialorrhea. stable. continue current mgmt otherwise. 7/8 will lower risperidone to 0.5mg po TID. May want to consider olanzapine if drooling continues and worsening tremors with risperidone even at low doses. glycopyrrolate 1mg po BID, now that dose of risperidone is less. 05/31: one more day on present regimen, change to zyprexa tomorrow if no improvement. 06/01: sialorrhea unimproved. DC risperidone and glycopyrrolate. start zyprexa 2.5 mg BID. Reason for continued inpatient stay Substantial Risk for: inability to function and rapid decompensation Time Spent With Patient Time: Total time managing care of this patient today __25__ minutes.
[2024-06-01] MEDS: OLANZapine 2.5 MG TABLET PO (19:50)
[2024-06-01] MEDS: Atorvastatin Calcium 10 MG TABLET PO (19:50)
[2024-06-01] MEDS: traZODone HCL 50 MG TABLET PO (19:50)
[2024-06-01 19:51] VITALS: BP 136/65; PULSE 66
[2024-06-01 20:56] VITALS: BP 136/65; PULSE 66; RESP 16; TEMP 36.1; O2SAT 98
[2024-06-02 07:00] VITALS: BMI 21.7
[2024-06-02 08:16] VITALS: BP 154/80; PULSE 77; RESP 18; TEMP 36.1; O2SAT 98
[2024-06-02] MEDS: Nicotine 14 MG PATCH.TD24 TRANSDERMA (08:55)
[2024-06-02] MEDS: Lidocaine 4 % Patch ADH..PATCH 1 PATCH TRANSDERMA (08:56)
[2024-06-02] MEDS: Propranolol HCL 10 MG TABLET 5 MG PO ×3 (08:57→20:51)
[2024-06-02] MEDS: Valsartan 40 MG TABLET PO (08:57)
[2024-06-02] MEDS: amLODIPine Besylate 10 MG TABLET PO (08:57)
[2024-06-02] MEDS: Sennosides/Docusate Sodium TABLET 1 TAB PO ×2 (08:57→20:50)
[2024-06-02] MEDS: Divalproex Sodium ER 250 MG TAB.ER.24H PO ×3 (08:58→20:50)
[2024-06-02] MEDS: OLANZapine 2.5 MG TABLET PO ×2 (08:58→20:51)
[2024-06-02 14:39] VITALS: BP 151/68; PULSE 84
--- NOTE | 2024-06-02 18:43 | P.PNPSI_ITS ---
Subjective Subjective Date of Service: 06/02/24 Reason For Visit: si Interim History: Pt engaged in discussion. Discussed service and two peers he believes are targeting him on the unit. Reviewed current thoughts on the political situation and his views on the election. Continued discussion in milieu. Apologetic for his perception that he is crabby . Appears well engaged at times with the team and select peers. Denies physical issues. Team report a change to Olanzapine with agitation and argumentative sx. Medication Compliance: Yes Side effects from medications: No Attending Groups: Intermittent Review of Systems Medical Review of Systems: unchanged Review of Systems Review of Systems Yes all other systems are reviewed and are negative (denies) Mental Status Exam Mental Status Exam Patient Appearance: Disheveled Patient Orientation: Person and Place Level of Consciousness: Alert Patient Behavior: Talkative and Good Eye Contact Mood Description: Constricted Affect Description: Constricted Patient Cognition Impaired: Yes Ability to Follow Directions: Good Speech Pattern: Spontaneous Speech Memory Description: Remote Impaired Hallucinations: None Thought Process: Confusion Thought Content: positive for Circumstantial Depressive Symptoms: Increased Irritability Abnormal Motor Activity Signs and Symptoms: Restlessness Judgement: Poor Diagnostics Vital Signs (24Hr): Vital Signs - 24 hr 06/01/24 19:51 06/01/24 20:56 06/02/24 08:16 Temperature 97 F 96.9 F Pulse Rate 66 66 77 Respiratory Rate 16 18 Blood Pressure 136/65 136/65 154/80 H Pulse Oximetry 98 98 Oxygen Delivery Method Room Air Room Air 06/02/24 14:39 Temperature Pulse Rate 84 Respiratory Rate Blood Pressure 151/68 H Pulse Oximetry Oxygen Delivery Method BMI result Body Mass Index 21.7 Labs 05/16/24 09:58 05/23/24 10:00 Medications Medications Current Medications Acetaminophen (Acetaminophen 325 Mg Tablet) 650 mg PO Q4H PRN PRN Reason: Mild Pain (Scale Score 1-4) Al Hydroxide/Mg Hydroxide (Magnesium Hydrox/Alum Hydrox 30 Ml Oral.Susp) 30 ml PO Q6H PRN PRN Reason: Heartburn/Nausea Amlodipine Besylate (Amlodipine Besylate 10 Mg Tablet) 10 mg PO DAILY [facility]; Protocol Last Admin: 06/02/24 08:57 Dose: 10 mg Atorvastatin Calcium (Atorvastatin Calcium 10 Mg Tablet) 10 mg PO BEDTIME [facility] Last Admin: 06/01/24 19:50 Dose: 10 mg Divalproex Sodium (Divalproex Sodium Er 250 Mg Tab.Er.24h) 250 mg PO TID [facility] Last Admin: 06/02/24 14:41 Dose: 250 mg Lidocaine (Lidocaine 4 % Patch Adh..Patch) 1 patch TRANSDERMA DAILY [facility]; Protocol Last Admin: 06/02/24 08:56 Dose: 1 patch Loperamide HCl (Loperamide Hcl 2 Mg Capsule) 4 mg PO Q6H PRN PRN Reason: diarrhea Last Admin: 05/26/24 21:07 Dose: 4 mg Magnesium Hydroxide (Milk Of Magnesia 30 Ml Oral.Susp) 30 ml PO DAILY PRN PRN Reason: Constipation Nicotine (Nicotine 14 Mg Patch.Td24) 14 mg TRANSDERMA DAILY [facility] Last Admin: 06/02/24 08:55 Dose: 14 mg Nicotine Polacrilex (Nicotine Polacrilex 2 Mg Gum) 2 mg BUCCAL Q2H PRN PRN Reason: Nicotine Cravings Olanzapine (Olanzapine 2.5 Mg Tablet) 2.5 mg PO BID [facility] Last Admin: 06/02/24 08:58 Dose: 2.5 mg Propranolol HCl (Propranolol Hcl 10 Mg Tablet) 5 mg PO TID [facility]; Protocol Last Admin: 06/02/24 14:41 Dose: 5 mg Quetiapine Fumarate (Quetiapine Fumarate 100 Mg Tablet) 100 mg PO TID PRN PRN Reason: moderate agitation Last Admin: 05/31/24 21:08 Dose: 100 mg Senna/Docusate Sodium (Sennosides/Docusate Sodium Tablet) 1 tab PO BID [facility] Last Admin: 06/02/24 08:57 Dose: 1 tab Trazodone HCl (Trazodone Hcl 50 Mg Tablet) 50 mg PO BEDTIME [facility] Last Admin: 06/01/24 19:50 Dose: 50 mg Trazodone HCl (Trazodone Hcl 50 Mg Tablet) 50 mg PO BEDTIME PRN PRN Reason: Insomnia Last Admin: 05/31/24 21:09 Dose: 50 mg Valsartan (Valsartan 40 Mg Tablet) 40 mg PO DAILY [facility]; Protocol Last Admin: 06/02/24 08:57 Dose: 40 mg Valsartan (Valsartan 80 Mg Tablet) 80 mg PO BEDTIME [facility]; Protocol Last Admin: 05/26/24 20:58 Dose: 80 mg Allergies Allergies Allergy/AdvReac Type Severity Reaction Status Date / Time No Known Allergies Allergy Verified 05/23/24 22:28 Assessment & Plan Assessment & Plan (1) Bipolar disorder: Status: Acute Code(s): F31.9 - Bipolar disorder, unspecified (2) Cognitive impairment: Status: Acute Code(s): R41.89 - Other symptoms and signs involving cognitive functions and awareness Plan Mr. Beckford is a 73 year-old male who resides at [facility]. He was sent from there via EMS due to subacute progression of agitation, irritability, ponding his fist and verbal threats of violence towards others which is not his usual. SW from reports that he has been declinining after he got covid few months ago. He has been seen by psychiatrist Dr. Joyner and recent med changes have been done but it is unclear which meds. Will contact Dr. Joyner for further collateral information. On the unit, pt presents as cooperative, irritable edge, strong views about politics, ethics and morals. He is not aware of his own medications nor what these are for. We discussed risks, benefits and alternative treatment options. It also appears that cognitively pt has declined. Note that MRI in March of this year does show significant atrophy and microvascular changes, pending MOCA and ACL. PLAN 05/19 consult to hospitalist for ARMANDO, HTN. will dc hydrocholothiazide for now. this mortgage or loan underwriter called CONY Mccormick at [facility] awaiting call back 05/20 continue tx. 05/21 yesterday his Norvasc was increased up to 10 mg p.o. at still with high blood pressure we will monitor closely. We are increasing Depakote up to 250 mg p.o. t.i.d. for agitation and aggression 05/22 increase Seroquel up to 100 mg p.o. t.i.d. to target psychosis and mirza. 05/23 continue tx. BP continues to be high despite adding amlodipine 10mg po daily last week. SBP 190's. hospitalist to adjust HTN meds. 05/24 will change seroquel to risperidone, will get depakote level tomorrow morning, along with ammonia. irritable and explosive. 05/25 continue current medication. 05/27 continue tx. depakote level on 05/25 42, ammonia 45. will schedule trazodone for sleep. he may benefit from aricept. 09/05: stably cantankerous. continue current mgmt. 05/29: start glycopyrrolate 1 TID for sialorrhea. stable. continue current mgmt otherwise. 05/30 will lower risperidone to 0.5mg po TID. May want to consider olanzapine if drooling continues and worsening tremors with risperidone even at low doses. glycopyrrolate 1mg po BID, now that dose of risperidone is less. 05/31: one more day on present regimen, change to zyprexa tomorrow if no improvement. 06/01: sialorrhea unimproved. DC risperidone and glycopyrrolate. start zyprexa 2.5 mg BID. 06/02: continue tx. Reason for continued inpatient stay Substantial Risk for: rapid decompensation Time Spent With Patient Time: Total time managing care of this patient today ____ minutes.
[2024-06-02] MEDS: Atorvastatin Calcium 10 MG TABLET PO (20:50)
[2024-06-02] MEDS: traZODone HCL 50 MG TABLET PO (20:50)
[2024-06-02 20:51] VITALS: BP 142/95; PULSE 74
[2024-06-02 22:00] VITALS: BP 141/95; PULSE 74; RESP 18; TEMP 36.2; O2SAT 99
[2024-06-03 08:26] VITALS: BP 140/77; PULSE 77; RESP 15; TEMP 36.8; O2SAT 97
[2024-06-03] MEDS: amLODIPine Besylate 10 MG TABLET PO (08:27)
[2024-06-03] MEDS: Propranolol HCL 10 MG TABLET 5 MG PO ×3 (08:27→20:08)
[2024-06-03] MEDS: OLANZapine 2.5 MG TABLET PO ×2 (08:27→20:08)
[2024-06-03] MEDS: Divalproex Sodium ER 250 MG TAB.ER.24H PO ×3 (08:28→20:08)
[2024-06-03] MEDS: Valsartan 40 MG TABLET PO (08:28)
[2024-06-03] MEDS: Sennosides/Docusate Sodium TABLET 1 TAB PO ×2 (08:28→20:08)
[2024-06-03] MEDS: Lidocaine 4 % Patch ADH..PATCH 1 PATCH TRANSDERMA (09:21)
[2024-06-03 14:45] VITALS: BP 128/81; PULSE 69
--- NOTE | 2024-06-03 17:02 | HO.PSYCHPN ---
Subjective Subjective Date of Service: 06/03/24 Reason For Visit: si Interim History: rambling but pleasant. sialorrhea continues, although improved from prior. no complaints or requests. per staff, no change in presentation aside from decrease in salivation. Mental Status Exam Mental Status Exam Narrative: Apperance: wearing casual clothing, good hygiene, in NAD Behavior: cooperative, strong views which can come out of offensive but do not seem personal Psychomotor: bilateral hand action and resting tremor- quite prominent and affects his ability to hold objects Speech: mumbles at times, regular rate, but hyperverbal, spontaneous TP: some derailment and circumstantial TC: complaining about politics and lack of values/moral principles in the world Mood: good Affect: pleasant SI: denies HI: denies VH/AH: none Delusions: some suspiciousness about government agencies... 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 Memory/cog: alert, oriented x3,pending MOCA and ACL Diagnostics Vital Signs (24Hr): Vital Signs - 24 hr 06/02/24 20:51 06/02/24 22:00 06/03/24 08:26 Temperature 97.1 F 98.2 F Pulse Rate 74 74 77 Respiratory Rate 18 15 Blood Pressure 142/95 H 141/95 H 140/77 H Pulse Oximetry 99 97 Oxygen Delivery Method Room Air Room Air 06/03/24 14:45 Temperature Pulse Rate 69 Respiratory Rate Blood Pressure 128/81 Pulse Oximetry Oxygen Delivery Method BMI result Body Mass Index 21.7 Labs 05/16/24 09:58 05/23/24 10:00 Medications Medications Current Medications Acetaminophen (Acetaminophen 325 Mg Tablet) 650 mg PO Q4H PRN PRN Reason: Mild Pain (Scale Score 1-4) Al Hydroxide/Mg Hydroxide (Magnesium Hydrox/Alum Hydrox 30 Ml Oral.Susp) 30 ml PO Q6H PRN PRN Reason: Heartburn/Nausea Amlodipine Besylate (Amlodipine Besylate 10 Mg Tablet) 10 mg PO DAILY [facility]; Protocol Last Admin: 06/03/24 08:27 Dose: 10 mg Atorvastatin Calcium (Atorvastatin Calcium 10 Mg Tablet) 10 mg PO BEDTIME [facility] Last Admin: 06/02/24 20:50 Dose: 10 mg Divalproex Sodium (Divalproex Sodium Er 250 Mg Tab.Er.24h) 250 mg PO TID [facility] Last Admin: 06/03/24 14:44 Dose: 250 mg Lidocaine (Lidocaine 4 % Patch Adh..Patch) 1 patch TRANSDERMA DAILY [facility]; Protocol Last Admin: 06/03/24 09:21 Dose: 1 patch Loperamide HCl (Loperamide Hcl 2 Mg Capsule) 4 mg PO Q6H PRN PRN Reason: diarrhea Last Admin: 05/26/24 21:07 Dose: 4 mg Magnesium Hydroxide (Milk Of Magnesia 30 Ml Oral.Susp) 30 ml PO DAILY PRN PRN Reason: Constipation Nicotine (Nicotine 14 Mg Patch.Td24) 14 mg TRANSDERMA DAILY [facility] Last Admin: 06/02/24 08:55 Dose: 14 mg Nicotine Polacrilex (Nicotine Polacrilex 2 Mg Gum) 2 mg BUCCAL Q2H PRN PRN Reason: Nicotine Cravings Olanzapine (Olanzapine 2.5 Mg Tablet) 2.5 mg PO BID [facility] Last Admin: 06/03/24 08:27 Dose: 2.5 mg Propranolol HCl (Propranolol Hcl 10 Mg Tablet) 5 mg PO TID [facility]; Protocol Last Admin: 06/03/24 14:45 Dose: 5 mg Quetiapine Fumarate (Quetiapine Fumarate 100 Mg Tablet) 100 mg PO TID PRN PRN Reason: moderate agitation Last Admin: 05/31/24 21:08 Dose: 100 mg Senna/Docusate Sodium (Sennosides/Docusate Sodium Tablet) 1 tab PO BID [facility] Last Admin: 06/03/24 08:28 Dose: 1 tab Trazodone HCl (Trazodone Hcl 50 Mg Tablet) 50 mg PO BEDTIME [facility] Last Admin: 06/02/24 20:50 Dose: 50 mg Trazodone HCl (Trazodone Hcl 50 Mg Tablet) 50 mg PO BEDTIME PRN PRN Reason: Insomnia Last Admin: 05/31/24 21:09 Dose: 50 mg Valsartan (Valsartan 40 Mg Tablet) 40 mg PO DAILY [facility]; Protocol Last Admin: 06/03/24 08:28 Dose: 40 mg Valsartan (Valsartan 80 Mg Tablet) 80 mg PO BEDTIME [facility]; Protocol Last Admin: 05/26/24 20:58 Dose: 80 mg Allergies Allergies Allergy/AdvReac Type Severity Reaction Status Date / Time No Known Allergies Allergy Verified 05/23/24 22:28 Assessment & Plan Assessment & Plan (1) Bipolar disorder: Status: Acute Code(s): F31.9 - Bipolar disorder, unspecified (2) Cognitive impairment: Status: Acute Code(s): R41.89 - Other symptoms and signs involving cognitive functions and awareness Plan Mr. Beckford is a 73 year-old male who resides at [facility]. He was sent from there via EMS due to subacute progression of agitation, irritability, ponding his fist and verbal threats of violence towards others which is not his usual. SW from reports that he has been declinining after he got covid few months ago. He has been seen by psychiatrist Dr. Joyner and recent med changes have been done but it is unclear which meds. Will contact Dr. Joyner for further collateral information. On the unit, pt presents as cooperative, irritable edge, strong views about politics, ethics and morals. He is not aware of his own medications nor what these are for. We discussed risks, benefits and alternative treatment options. It also appears that cognitively pt has declined. Note that MRI in March of this year does show significant atrophy and microvascular changes, pending MOCA and ACL. PLAN 05/19 consult to hospitalist for ARMANDO, HTN. will dc hydrocholothiazide for now. this feature writer called CONY Mccormick at [facility] awaiting call back 05/20 continue tx. 05/21 yesterday his Norvasc was increased up to 10 mg p.o. at still with high blood pressure we will monitor closely. We are increasing Depakote up to 250 mg p.o. t.i.d. for agitation and aggression 05/22 increase Seroquel up to 100 mg p.o. t.i.d. to target psychosis and mirza. 05/23 continue tx. BP continues to be high despite adding amlodipine 10mg po daily last week. SBP 190's. hospitalist to adjust HTN meds. 05/24 will change seroquel to risperidone, will get depakote level tomorrow morning, along with ammonia. irritable and explosive. 05/25 continue current medication. 05/27 continue tx. depakote level on 05/25 42, ammonia 45. will schedule trazodone for sleep. he may benefit from aricept. 09/05: stably cantankerous. continue current mgmt. 05/29: start glycopyrrolate 1 TID for sialorrhea. stable. continue current mgmt otherwise. 05/30 will lower risperidone to 0.5mg po TID. May want to consider olanzapine if drooling continues and worsening tremors with risperidone even at low doses. glycopyrrolate 1mg po BID, now that dose of risperidone is less. 05/31: one more day on present regimen, change to zyprexa tomorrow if no improvement. 06/01: sialorrhea unimproved. DC risperidone and glycopyrrolate. start zyprexa 2.5 mg BID. 06/02: continue tx. 06/03: sialorrhea improved but still bothersome. T/C adding glycopyrrolate again. otherwise no change in presentation. Reason for continued inpatient stay Substantial Risk for: harm to others, inability to function and rapid decompensation Time Spent With Patient Time: Total time managing care of this patient today ____ minutes.
[2024-06-03 20:06] VITALS: BP 142/66; PULSE 68; RESP 16; TEMP 36.6; O2SAT 98
[2024-06-03 20:08] VITALS: BP 142/66; PULSE 68
[2024-06-03] MEDS: traZODone HCL 50 MG TABLET PO (20:08)
[2024-06-03] MEDS: Atorvastatin Calcium 10 MG TABLET PO (20:08)
[2024-06-04] VITALS (7 sets, daily range): BP systolic 141–172; BP diastolic 70–78; PULSE 70–95; RESP 17–18; TEMP 36.2–36.5; O2SAT 97–98
[2024-06-04] MEDS: Sennosides/Docusate Sodium TABLET 1 TAB PO ×2 (08:19→19:52)
[2024-06-04] MEDS: Propranolol HCL 10 MG TABLET 5 MG PO ×3 (08:19→19:52)
[2024-06-04] MEDS: Divalproex Sodium ER 250 MG TAB.ER.24H PO ×3 (08:19→19:52)
[2024-06-04] MEDS: OLANZapine 2.5 MG TABLET PO ×2 (08:19→19:51)
[2024-06-04] MEDS: Valsartan 40 MG TABLET PO (08:25)
[2024-06-04] MEDS: amLODIPine Besylate 10 MG TABLET PO (08:25)
[2024-06-04] MEDS: Lidocaine 4 % Patch ADH..PATCH 1 PATCH TRANSDERMA (08:25)
[2024-06-04] MEDS: Nicotine 14 MG PATCH.TD24 TRANSDERMA (08:33)
--- NOTE | 2024-06-04 09:49 | PC.NURSE ---
This morning Michael's blood pressure 172/75 and asymptomatic. Morning meds given and Dr. Fraire notified. Will recheck blood pressure.
--- NOTE | 2024-06-04 10:16 | PC.NURSE ---
Recheck of blood pressure at 0955 140/[address] Fraire updated.
--- NOTE | 2024-06-04 10:17 | P.PNPSI_ITS ---
Subjective Subjective Date of Service: 06/04/24 Reason For Visit: si Interim History: rambling but pleasant. Social engaged on the unit Mental Status Exam Mental Status Exam Narrative: Apperance: wearing casual clothing, good hygiene, in NAD Behavior: cooperative, strong views which can come out of offensive but do not seem personal Psychomotor: bilateral hand action and resting tremor- quite prominent and affects his ability to hold objects Speech: mumbles at times, regular rate, but hyperverbal, spontaneous TP: some derailment and circumstantial TC: complaining about politics and lack of values/moral principles in the world Mood: good Affect: pleasant SI: denies HI: denies VH/AH: none Delusions: some suspiciousness about government agencies... 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 Memory/cog: alert, oriented x3,pending MOCA and ACL Diagnostics Vital Signs (24Hr): Vital Signs - 24 hr 06/03/24 14:45 06/03/24 20:06 06/03/24 20:08 Temperature 97.8 F Pulse Rate 69 68 68 Respiratory Rate 16 Blood Pressure 128/81 142/66 H 142/66 H Pulse Oximetry 98 Oxygen Delivery Method Room Air 06/04/24 08:19 06/04/24 08:24 06/04/24 08:25 Temperature 97.1 F Pulse Rate 81 81 Respiratory Rate 18 Blood Pressure 172/75 H 172/75 H 172/75 H Pulse Oximetry 98 Oxygen Delivery Method Room Air 06/04/24 08:25 06/04/24 09:55 Temperature Pulse Rate Respiratory Rate Blood Pressure 172/75 H 141/70 H Pulse Oximetry Oxygen Delivery Method BMI result Body Mass Index 21.7 Labs 05/16/24 09:58 05/23/24 10:00 Medications Medications Current Medications Acetaminophen (Acetaminophen 325 Mg Tablet) 650 mg PO Q4H PRN PRN Reason: Mild Pain (Scale Score 1-4) Al Hydroxide/Mg Hydroxide (Magnesium Hydrox/Alum Hydrox 30 Ml Oral.Susp) 30 ml PO Q6H PRN PRN Reason: Heartburn/Nausea Amlodipine Besylate (Amlodipine Besylate 10 Mg Tablet) 10 mg PO DAILY [facility]; Protocol Last Admin: 06/04/24 08:25 Dose: 10 mg Atorvastatin Calcium (Atorvastatin Calcium 10 Mg Tablet) 10 mg PO BEDTIME [facility] Last Admin: 06/03/24 20:08 Dose: 10 mg Divalproex Sodium (Divalproex Sodium Er 250 Mg Tab.Er.24h) 250 mg PO TID [facility] Last Admin: 06/04/24 08:19 Dose: 250 mg Lidocaine (Lidocaine 4 % Patch Adh..Patch) 1 patch TRANSDERMA DAILY [facility]; Protocol Last Admin: 06/04/24 08:25 Dose: 1 patch Loperamide HCl (Loperamide Hcl 2 Mg Capsule) 4 mg PO Q6H PRN PRN Reason: diarrhea Last Admin: 05/26/24 21:07 Dose: 4 mg Magnesium Hydroxide (Milk Of Magnesia 30 Ml Oral.Susp) 30 ml PO DAILY PRN PRN Reason: Constipation Nicotine (Nicotine 14 Mg Patch.Td24) 14 mg TRANSDERMA DAILY [facility] Last Admin: 06/04/24 08:33 Dose: 14 mg Nicotine Polacrilex (Nicotine Polacrilex 2 Mg Gum) 2 mg BUCCAL Q2H PRN PRN Reason: Nicotine Cravings Olanzapine (Olanzapine 2.5 Mg Tablet) 2.5 mg PO BID [facility] Last Admin: 06/04/24 08:19 Dose: 2.5 mg Propranolol HCl (Propranolol Hcl 10 Mg Tablet) 5 mg PO TID [facility]; Protocol Last Admin: 06/04/24 08:19 Dose: 5 mg Quetiapine Fumarate (Quetiapine Fumarate 100 Mg Tablet) 100 mg PO TID PRN PRN Reason: moderate agitation Last Admin: 05/31/24 21:08 Dose: 100 mg Senna/Docusate Sodium (Sennosides/Docusate Sodium Tablet) 1 tab PO BID [facility] Last Admin: 06/04/24 08:19 Dose: 1 tab Trazodone HCl (Trazodone Hcl 50 Mg Tablet) 50 mg PO BEDTIME [facility] Last Admin: 06/03/24 20:08 Dose: 50 mg Trazodone HCl (Trazodone Hcl 50 Mg Tablet) 50 mg PO BEDTIME PRN PRN Reason: Insomnia Last Admin: 05/31/24 21:09 Dose: 50 mg Valsartan (Valsartan 40 Mg Tablet) 40 mg PO DAILY [facility]; Protocol Last Admin: 06/04/24 08:25 Dose: 40 mg Valsartan (Valsartan 80 Mg Tablet) 80 mg PO BEDTIME [facility]; Protocol Last Admin: 05/26/24 20:58 Dose: 80 mg Allergies Allergies Allergy/AdvReac Type Severity Reaction Status Date / Time No Known Allergies Allergy Verified 05/23/24 22:28 Assessment & Plan Assessment & Plan (1) Bipolar disorder: Status: Acute Code(s): F31.9 - Bipolar disorder, unspecified (2) Cognitive impairment: Status: Acute Code(s): R41.89 - Other symptoms and signs involving cognitive functions and awareness Plan Mr. Beckford is a 73 year-old male who resides at [facility]. He was sent from there via EMS due to subacute progression of agitation, irritability, ponding his fist and verbal threats of violence towards others which is not his usual. SW from reports that he has been declinining after he got covid few months ago. He has been seen by psychiatrist Dr. Joyner and recent med changes have been done but it is unclear which meds. Will contact Dr. Joyner for further collateral information. On the unit, pt presents as cooperative, irritable edge, strong views about politics, ethics and morals. He is not aware of his own medications nor what these are for. We discussed risks, benefits and alternative treatment options. It also appears that cognitively pt has declined. Note that MRI in March of this year does show significant atrophy and microvascular changes, pending MOCA and ACL. PLAN 05/19 consult to hospitalist for ARMANDO, HTN. will dc hydrocholothiazide for now. this ad copy writer called CONY Mccormick at [facility] awaiting call back 05/20 continue tx. 05/21 yesterday his Norvasc was increased up to 10 mg p.o. at still with high blood pressure we will monitor closely. We are increasing Depakote up to 250 mg p.o. t.i.d. for agitation and aggression 05/22 increase Seroquel up to 100 mg p.o. t.i.d. to target psychosis and mirza. 05/23 continue tx. BP continues to be high despite adding amlodipine 10mg po daily last week. SBP 190's. hospitalist to adjust HTN meds. 05/24 will change seroquel to risperidone, will get depakote level tomorrow morning, along with ammonia. irritable and explosive. 05/25 continue current medication. 05/27 continue tx. depakote level on 05/25 42, ammonia 45. will schedule trazodone for sleep. he may benefit from aricept. 09/05: stably cantankerous. continue current mgmt. 05/29: start glycopyrrolate 1 TID for sialorrhea. stable. continue current mgmt otherwise. 05/30 will lower risperidone to 0.5mg po TID. May want to consider olanzapine if drooling continues and worsening tremors with risperidone even at low doses. glycopyrrolate 1mg po BID, now that dose of risperidone is less. 05/31: one more day on present regimen, change to zyprexa tomorrow if no improvement. 06/01: sialorrhea unimproved. DC risperidone and glycopyrrolate. start zyprexa 2.5 mg BID. 06/02: continue tx. 06/03: sialorrhea improved but still bothersome. T/C adding glycopyrrolate again. otherwise no change in presentation. 06/04/2024 Continue plan of care discharge planning patient's social engaged reportedly returning to his ultrasound not aggressive Reason for continued inpatient stay Substantial Risk for: harm to self and med/psych decompensation Time Spent With Patient Time: Total time managing care of this patient today ____ minutes.
[2024-06-04] MEDS: Atorvastatin Calcium 10 MG TABLET PO (19:51)
[2024-06-04] MEDS: traZODone HCL 50 MG TABLET PO (19:58)
[2024-06-05 08:16] VITALS: BP 156/65; PULSE 80; RESP 20; TEMP 36.3; O2SAT 97
[2024-06-05] MEDS: Nicotine 14 MG PATCH.TD24 TRANSDERMA (08:18)
[2024-06-05] MEDS: Propranolol HCL 10 MG TABLET 5 MG PO ×3 (08:19→20:48)
[2024-06-05] MEDS: OLANZapine 2.5 MG TABLET PO ×2 (08:19→20:48)
[2024-06-05] MEDS: Sennosides/Docusate Sodium TABLET 1 TAB PO ×2 (08:21→20:48)
[2024-06-05] MEDS: Valsartan 40 MG TABLET PO (08:21)
[2024-06-05] MEDS: amLODIPine Besylate 10 MG TABLET PO (08:21)
[2024-06-05] MEDS: Divalproex Sodium ER 250 MG TAB.ER.24H PO ×3 (08:21→20:48)
[2024-06-05] MEDS: Lidocaine 4 % Patch ADH..PATCH 1 PATCH TRANSDERMA (08:22)
--- NOTE | 2024-06-05 13:05 | P.PNPSI_ITS ---
Subjective Subjective Date of Service: 05/29/24 Reason For Visit: si Interim History: Patient is superficially pleasant not overly agitated generally in control. Active and engaged Mental Status Exam Mental Status Exam Narrative: Apperance: wearing casual clothing, good hygiene, in NAD Behavior: cooperative, strong views which can come out of offensive but do not seem personal Psychomotor: bilateral hand action and resting tremor- quite prominent and affects his ability to hold objects Speech: mumbles at times, regular rate, but hyperverbal, spontaneous TP: some derailment and circumstantial TC: complaining about politics Mood: good Affect: pleasant SI: denies HI: denies VH/AH: none Delusions: some suspiciousness about government agencies Insight/judgment: poor x 2. Memory/cog: alert, oriented x3,pending MOCA and ACL Diagnostics Vital Signs (24Hr): Vital Signs - 24 hr 06/04/24 15:02 06/04/24 19:49 06/04/24 19:52 Temperature 97.7 F Pulse Rate 95 70 70 Respiratory Rate 17 Blood Pressure 147/78 H 164/72 H 164/72 H Pulse Oximetry 97 Oxygen Delivery Method Room Air 06/05/24 08:16 Temperature 97.4 F Pulse Rate 80 Respiratory Rate 20 Blood Pressure 156/65 H Pulse Oximetry 97 Oxygen Delivery Method Room Air BMI result Body Mass Index 21.7 Labs 05/16/24 09:58 05/23/24 10:00 Medications Medications Current Medications Acetaminophen (Acetaminophen 325 Mg Tablet) 650 mg PO Q4H PRN PRN Reason: Mild Pain (Scale Score 1-4) Al Hydroxide/Mg Hydroxide (Magnesium Hydrox/Alum Hydrox 30 Ml Oral.Susp) 30 ml PO Q6H PRN PRN Reason: Heartburn/Nausea Amlodipine Besylate (Amlodipine Besylate 10 Mg Tablet) 10 mg PO DAILY [facility]; Protocol Last Admin: 06/05/24 08:21 Dose: 10 mg Atorvastatin Calcium (Atorvastatin Calcium 10 Mg Tablet) 10 mg PO BEDTIME [facility] Last Admin: 06/04/24 19:51 Dose: 10 mg Divalproex Sodium (Divalproex Sodium Er 250 Mg Tab.Er.24h) 250 mg PO TID [facility] Last Admin: 06/05/24 08:21 Dose: 250 mg Lidocaine (Lidocaine 4 % Patch Adh..Patch) 1 patch TRANSDERMA DAILY [facility]; Protocol Last Admin: 06/05/24 08:22 Dose: 1 patch Loperamide HCl (Loperamide Hcl 2 Mg Capsule) 4 mg PO Q6H PRN PRN Reason: diarrhea Last Admin: 05/26/24 21:07 Dose: 4 mg Magnesium Hydroxide (Milk Of Magnesia 30 Ml Oral.Susp) 30 ml PO DAILY PRN PRN Reason: Constipation Nicotine (Nicotine 14 Mg Patch.Td24) 14 mg TRANSDERMA DAILY [facility] Last Admin: 06/05/24 08:18 Dose: 14 mg Nicotine Polacrilex (Nicotine Polacrilex 2 Mg Gum) 2 mg BUCCAL Q2H PRN PRN Reason: Nicotine Cravings Olanzapine (Olanzapine 2.5 Mg Tablet) 2.5 mg PO BID [facility] Last Admin: 06/05/24 08:19 Dose: 2.5 mg Propranolol HCl (Propranolol Hcl 10 Mg Tablet) 5 mg PO TID [facility]; Protocol Last Admin: 06/05/24 08:19 Dose: 5 mg Quetiapine Fumarate (Quetiapine Fumarate 100 Mg Tablet) 100 mg PO TID PRN PRN Reason: moderate agitation Last Admin: 05/31/24 21:08 Dose: 100 mg Senna/Docusate Sodium (Sennosides/Docusate Sodium Tablet) 1 tab PO BID [facility] Last Admin: 06/05/24 08:21 Dose: 1 tab Trazodone HCl (Trazodone Hcl 50 Mg Tablet) 50 mg PO BEDTIME [facility] Last Admin: 06/04/24 19:58 Dose: 50 mg Trazodone HCl (Trazodone Hcl 50 Mg Tablet) 50 mg PO BEDTIME PRN PRN Reason: Insomnia Last Admin: 05/31/24 21:09 Dose: 50 mg Valsartan (Valsartan 40 Mg Tablet) 40 mg PO DAILY [facility]; Protocol Last Admin: 06/05/24 08:21 Dose: 40 mg Valsartan (Valsartan 80 Mg Tablet) 80 mg PO BEDTIME [facility]; Protocol Last Admin: 05/26/24 20:58 Dose: 80 mg Allergies Allergies Allergy/AdvReac Type Severity Reaction Status Date / Time No Known Allergies Allergy Verified 05/23/24 22:28 Assessment & Plan Assessment & Plan (1) Bipolar disorder: Status: Acute Code(s): F31.9 - Bipolar disorder, unspecified (2) Cognitive impairment: Status: Acute Code(s): R41.89 - Other symptoms and signs involving cognitive functions and awareness Plan Mr. Beckford is a 73 year-old male who resides at [place]. He was sent from there via EMS due to subacute progression of agitation, irritability, ponding his fist and verbal threats of violence towards others which is not his usual. SW from reports that he has been declinining after he got covid few months ago. He has been seen by psychiatrist Dr. Joyner and recent med changes have been done but it is unclear which meds. Will contact Dr. Joyner for further collateral information. On the unit, pt presents as cooperative, irritable edge, strong views about politics, ethics and morals. He is not aware of his own medications nor what these are for. We discussed risks, benefits and alternative treatment options. It also appears that cognitively pt has declined. Note that MRI in March of this year does show significant atrophy and microvascular changes, pending MOCA and ACL. PLAN 05/19 consult to hospitalist for ARMANDO, HTN. will dc hydrocholothiazide for now. this mortgage underwriter called CONY Mccormick at [facility] awaiting call back 05/20 continue tx. 05/21 yesterday his Norvasc was increased up to 10 mg p.o. at still with high blood pressure we will monitor closely. We are increasing Depakote up to 250 mg p.o. t.i.d. for agitation and aggression 05/22 increase Seroquel up to 100 mg p.o. t.i.d. to target psychosis and mirza. 05/23 continue tx. BP continues to be high despite adding amlodipine 10mg po daily last week. SBP 190's. hospitalist to adjust HTN meds. 05/24 will change seroquel to risperidone, will get depakote level tomorrow morning, along with ammonia. irritable and explosive. 05/25 continue current medication. 05/27 continue tx. depakote level on 05/25 42, ammonia 45. will schedule trazodone for sleep. he may benefit from aricept. 09/05: stably cantankerous. continue current mgmt. 05/29: start glycopyrrolate 1 TID for sialorrhea. stable. continue current mgmt otherwise. 05/30 will lower risperidone to 0.5mg po TID. May want to consider olanzapine if drooling continues and worsening tremors with risperidone even at low doses. glycopyrrolate 1mg po BID, now that dose of risperidone is less. 05/31: one more day on present regimen, change to zyprexa tomorrow if no improvement. 06/01: sialorrhea unimproved. DC risperidone and glycopyrrolate. start zyprexa 2.5 mg BID. 06/02: continue tx. 06/03: sialorrhea improved but still bothersome. T/C adding glycopyrrolate again. otherwise no change in presentation. 06/04/2024 Continue plan of care discharge planning patient's social engaged reportedly returning to his ultrasound not aggressive 06/05/2024 Continue plan of care discharge planning [facility] to [facility] cr[facility] Reason for continued inpatient stay Substantial Risk for: harm to self and rapid decompensation Time Spent With Patient Time: Total time managing care of this patient today ____ minutes.
[2024-06-05 15:44] VITALS: BP 122/62; PULSE 72
[2024-06-05 20:48] VITALS: BP 132/66; PULSE 99
[2024-06-05] MEDS: Atorvastatin Calcium 10 MG TABLET PO (20:48)
[2024-06-05] MEDS: traZODone HCL 50 MG TABLET PO (20:51)
[2024-06-05 22:00] VITALS: BP 132/66; PULSE 73; RESP 16; TEMP 36.1; O2SAT 99
--- NOTE | 2024-06-06 06:55 | PM.PSYDC ---
DS: Providers Provider Date of Service: 06/06/24 Date of admission: 05/18/24 12:26 Primary care physician: Unknown Physician Consults: 05/19/24 11:34 Consult to Hospitalist Routine Comment: Consulting Provider: Hospitalist Reason For Exam: ARMANDO DS: Diagnosis Discharge Diagnosis (1) Bipolar disorder: Status: Acute (2) Cognitive impairment: Status: Acute DS: Medications Discharge Medications Home Medications: Home Medications ?Medication ?Instructions ?Recorded ?Confirmed acetaminophen 650 mg tablet 650 mg PO Q4H PRN Mild Pain (Scale 05/17/24 05/17/24 Score 1-4) lidocaine 4 % topical patch 1 patch topical DAILY 05/17/24 05/17/24 (Lidocaine Pain Relief) simvastatin 10 mg tablet 10 mg PO BEDTIME 05/17/24 05/17/24 Previous Rx's ?Medication ?Instructions ?Recorded amlodipine 10 mg tablet 10 mg PO DAILY #0 tabs 06/06/24 divalproex 250 mg tablet,extended 250 mg PO TID #0 tabs 06/06/24 release 24 hr loperamide 2 mg capsule 4 mg (2 x 2 mg) PO Q6H PRN 06/06/24 diarrhea #0 caps nicotine (polacrilex) 2 mg gum 2 mg buccal Q2H PRN Nicotine 06/06/24 Cravings #0 ea nicotine 14 mg/24 hr daily 14 mg transdermal DAILY #0 ea 06/06/24 transdermal patch olanzapine 2.5 mg tablet 2.5 mg PO BID #0 tabs 06/06/24 propranolol 10 mg tablet 5 mg PO TID #0 tabs 06/06/24 quetiapine 100 mg tablet 100 mg PO TID PRN moderate 06/06/24 agitation #0 tabs sennosides 8.6 mg-docusate sodium 1 tab PO BID #0 tabs 06/06/24 50 mg tablet (Senna Plus) trazodone 50 mg tablet 50 mg PO BEDTIME #0 tabs 06/06/24 trazodone 50 mg tablet 50 mg PO BEDTIME PRN Insomnia #0 06/06/24 tabs valsartan 40 mg tablet 40 mg PO DAILY #0 tabs 06/06/24 Mental Status Exam Mental Status Exam Narrative: Apperance: wearing casual clothing, good hygiene, in NAD Behavior: cooperative, strong views which can come out of offensive but do not seem personal Psychomotor: bilateral hand action and resting tremor Speech: mumbles at times, regular rate, but hyperverbal, spontaneous TP: some derailment and circumstantial TC: complaining about politics Mood: good Affect: pleasant SI: denies HI: denies VH/AH: none Delusions: some suspiciousness about government agencies Insight/judgment: poor x 2. Memory/cog: alert, oriented x3,pending MOCA and ACL DS: Summary Time Spent with Patient Time attestation: Total time managing care of this patient today ____ minutes. Discharge Plan Discharge Anticipated Discharge Date/Time: 06/06/24 06:49 Patient Disposition: er [facility] Discharge Diagnosis: Bipolar Disorder Cognitive Impairment Discharge Medications: New nicotine 14 mg/24 hr Patch 24 Hour 14 mg transdermal DAILY Qty: 0 0RF nicotine (polacrilex) 2 mg Gum 2 mg buccal Q2H PRN (Reason: Nicotine Cravings) Qty: 0 0RF propranolol 10 mg Tablet 5 mg PO TID Qty: 0 0RF Protocol: Hold for SBP/HR < HOLD for SBP < : 90 HOLD for HR < : 60 amlodipine 10 mg Tablet 10 mg PO DAILY Qty: 0 0RF Protocol: Hold for SBP< HOLD for SBP < : 90 valsartan 40 mg Tablet 40 mg PO DAILY Qty: 0 0RF Protocol: Hold for SBP< HOLD for SBP < : 90 divalproex 250 mg Tablet Extended Release 24 Hr 250 mg PO TID Qty: 0 0RF loperamide 2 mg Capsule 4 mg PO Q6H PRN (Reason: diarrhea) Qty: 0 0RF trazodone 50 mg Tablet 50 mg PO BEDTIME Qty: 0 0RF trazodone 50 mg Tablet 50 mg PO BEDTIME PRN (Reason: Insomnia) Qty: 0 0RF sennosides-docusate sodium [Senna Plus] 8.6-50 mg Tablet 1 tab PO BID Qty: 0 0RF olanzapine 2.5 mg Tablet 2.5 mg PO BID Qty: 0 0RF quetiapine 100 mg Tablet 100 mg PO TID PRN (Reason: moderate agitation) Qty: 0 0RF Continued lidocaine [Lidocaine Pain Relief] 4 % Adhesive Patch,Medicated 1 patch TOPICAL DAILY simvastatin 10 mg Tablet 10 mg PO BEDTIME acetaminophen 650 mg Tablet 650 mg PO Q4H PRN (Reason: Mild Pain (Scale Score 1-4)) Discontinued clonazepam 0.5 mg Tablet 0.5 mg PO TID PRN (Reason: Anxiety) oxcarbazepine 300 mg Tablet 300 mg PO BID quetiapine [Seroquel] 100 mg Tablet 100 mg PO BID benztropine 1 mg Tablet 1 mg PO BID docusate sodium [Colace] 100 mg Capsule 100 mg PO BEDTIME PRN (Reason: Constipation) divalproex 250 mg Tablet Extended Release 24 Hr 250 mg PO BID hydrochlorothiazide 12.5 mg Capsule 12.5 mg PO DAILY Discharge Orders: Discharge Order (Routine); Ordered 06/06/24 Ordered By: Neil Quigley Diet: Advance to usual diet Activity on Discharge: As tolerated Stand Alone Forms: Patient Portal Discharge page Print Language: Bulgarian Care Plan Goals: remain safe and stable in a supported living environment Health Concerns: Hypertension Hypercholesterolemia Plan of Treatment: take medications as prescribed, attend appointments as scheduled Assessment: not at imminent risk of harm to self or others
[2024-06-06 08:19] VITALS: BP 139/77; PULSE 79; RESP 18; TEMP 36.1; O2SAT 97
[2024-06-06] MEDS: Sennosides/Docusate Sodium TABLET 1 TAB PO ×2 (08:20→19:40)
[2024-06-06] MEDS: Propranolol HCL 10 MG TABLET 5 MG PO ×3 (08:21→19:41)
[2024-06-06] MEDS: amLODIPine Besylate 10 MG TABLET PO (08:21)
[2024-06-06] MEDS: OLANZapine 2.5 MG TABLET PO ×2 (08:21→19:41)
[2024-06-06] MEDS: Valsartan 40 MG TABLET PO (08:21)
[2024-06-06] MEDS: Divalproex Sodium ER 250 MG TAB.ER.24H PO ×3 (08:22→19:41)
[2024-06-06] MEDS: Lidocaine 4 % Patch ADH..PATCH 1 PATCH TRANSDERMA (08:24)
[2024-06-06] MEDS: Nicotine 14 MG PATCH.TD24 TRANSDERMA (08:24)
[2024-06-06 15:22] VITALS: BP 137/69; PULSE 73
--- NOTE | 2024-06-06 18:08 | HO.PSYCHPN ---
Subjective Subjective Date of Service: 06/06/24 Reason For Visit: si Interim History: hoping for discharge today. states he is safe and feeling well. no complaints or requests. per staff, excited to DC slept very little last NOC due to excitement. per collateral from CON[facility] Harrison, pt will not be discharging until tomorrow. Mental Status Exam Mental Status Exam Narrative: Apperance: wearing casual clothing, good hygiene, in NAD Behavior: cooperative, strong views which can come out of offensive but do not seem personal Psychomotor: bilateral hand action and resting tremor- quite prominent and affects his ability to hold objects Speech: mumbles at times, regular rate, but hyperverbal, spontaneous TP: some derailment and circumstantial TC: complaining about politics Mood: good Affect: pleasant SI: denies HI: denies VH/AH: none Delusions: some suspiciousness about government agencies Insight/judgment: poor x 2. Memory/cog: alert, oriented x3,pending MOCA and ACL Diagnostics Vital Signs (24Hr): Vital Signs - 24 hr 06/05/24 20:48 06/05/24 22:00 06/06/24 08:19 Temperature 97 F 97 F Pulse Rate 99 73 79 Respiratory Rate 16 18 Blood Pressure 132/66 132/66 139/77 Pulse Oximetry 99 97 Oxygen Delivery Method Room Air Room Air 06/06/24 15:22 Temperature Pulse Rate 73 Respiratory Rate Blood Pressure 137/69 Pulse Oximetry Oxygen Delivery Method BMI result Body Mass Index 21.7 Labs 05/16/24 09:58 05/23/24 10:00 Medications Medications Current Medications Acetaminophen (Acetaminophen 325 Mg Tablet) 650 mg PO Q4H PRN PRN Reason: Mild Pain (Scale Score 1-4) Al Hydroxide/Mg Hydroxide (Magnesium Hydrox/Alum Hydrox 30 Ml Oral.Susp) 30 ml PO Q6H PRN PRN Reason: Heartburn/Nausea Amlodipine Besylate (Amlodipine Besylate 10 Mg Tablet) 10 mg PO DAILY [facility]; Protocol Last Admin: 06/06/24 08:21 Dose: 10 mg Atorvastatin Calcium (Atorvastatin Calcium 10 Mg Tablet) 10 mg PO BEDTIME [facility] Last Admin: 06/05/24 20:48 Dose: 10 mg Divalproex Sodium (Divalproex Sodium Er 250 Mg Tab.Er.24h) 250 mg PO TID [facility] Last Admin: 06/06/24 15:23 Dose: 250 mg Lidocaine (Lidocaine 4 % Patch Adh..Patch) 1 patch TRANSDERMA DAILY [facility]; Protocol Last Admin: 06/06/24 08:24 Dose: 1 patch Loperamide HCl (Loperamide Hcl 2 Mg Capsule) 4 mg PO Q6H PRN PRN Reason: diarrhea Last Admin: 05/26/24 21:07 Dose: 4 mg Magnesium Hydroxide (Milk Of Magnesia 30 Ml Oral.Susp) 30 ml PO DAILY PRN PRN Reason: Constipation Nicotine (Nicotine 14 Mg Patch.Td24) 14 mg TRANSDERMA DAILY [facility] Last Admin: 06/06/24 08:24 Dose: 14 mg Nicotine Polacrilex (Nicotine Polacrilex 2 Mg Gum) 2 mg BUCCAL Q2H PRN PRN Reason: Nicotine Cravings Olanzapine (Olanzapine 2.5 Mg Tablet) 2.5 mg PO BID [facility] Last Admin: 06/06/24 08:21 Dose: 2.5 mg Propranolol HCl (Propranolol Hcl 10 Mg Tablet) 5 mg PO TID [facility]; Protocol Last Admin: 06/06/24 15:23 Dose: 5 mg Quetiapine Fumarate (Quetiapine Fumarate 100 Mg Tablet) 100 mg PO TID PRN PRN Reason: moderate agitation Last Admin: 05/31/24 21:08 Dose: 100 mg Senna/Docusate Sodium (Sennosides/Docusate Sodium Tablet) 1 tab PO BID [facility] Last Admin: 06/06/24 08:20 Dose: 1 tab Trazodone HCl (Trazodone Hcl 50 Mg Tablet) 50 mg PO BEDTIME [facility] Last Admin: 06/05/24 20:51 Dose: 50 mg Trazodone HCl (Trazodone Hcl 50 Mg Tablet) 50 mg PO BEDTIME PRN PRN Reason: Insomnia Last Admin: 05/31/24 21:09 Dose: 50 mg Valsartan (Valsartan 40 Mg Tablet) 40 mg PO DAILY [facility]; Protocol Last Admin: 06/06/24 08:21 Dose: 40 mg Valsartan (Valsartan 80 Mg Tablet) 80 mg PO BEDTIME [facility]; Protocol Last Admin: 05/26/24 20:58 Dose: 80 mg Allergies Allergies Allergy/AdvReac Type Severity Reaction Status Date / Time No Known Allergies Allergy Verified 05/23/24 22:28 Assessment & Plan Assessment & Plan (1) Bipolar disorder: Status: Acute Code(s): F31.9 - Bipolar disorder, unspecified (2) Cognitive impairment: Status: Acute Code(s): R41.89 - Other symptoms and signs involving cognitive functions and awareness Plan Mr. Beckford is a 73 year-old male who resides at [facility]. He was sent from there via EMS due to subacute progression of agitation, irritability, ponding his fist and verbal threats of violence towards others which is not his usual. SW from reports that he has been declinining after he got covid few months ago. He has been seen by psychiatrist Dr. Joyner and recent med changes have been done but it is unclear which meds. Will contact Dr. Joyner for further collateral information. On the unit, pt presents as cooperative, irritable edge, strong views about politics, ethics and morals. He is not aware of his own medications nor what these are for. We discussed risks, benefits and alternative treatment options. It also appears that cognitively pt has declined. Note that MRI in March of this year does show significant atrophy and microvascular changes, pending MOCA and ACL. PLAN 05/19 consult to hospitalist for ARMANDO, HTN. will dc hydrocholothiazide for now. this report writer called CONY Mccormick at [facility] home awaiting call back 05/20 continue tx. 05/21 yesterday his Norvasc was increased up to 10 mg p.o. at still with high blood pressure we will monitor closely. We are increasing Depakote up to 250 mg p.o. t.i.d. for agitation and aggression 05/22 increase Seroquel up to 100 mg p.o. t.i.d. to target psychosis and mirza. 05/23 continue tx. BP continues to be high despite adding amlodipine 10mg po daily last week. SBP 190's. hospitalist to adjust HTN meds. 05/24 will change seroquel to risperidone, will get depakote level tomorrow morning, along with ammonia. irritable and explosive. 05/25 continue current medication. 05/27 continue tx. depakote level on 05/25 42, ammonia 45. will schedule trazodone for sleep. he may benefit from aricept. 09/05: stably cantankerous. continue current mgmt. 7/7: start glycopyrrolate 1 TID for sialorrhea. stable. continue current mgmt otherwise. 05/30 will lower risperidone to 0.5mg po TID. May want to consider olanzapine if drooling continues and worsening tremors with risperidone even at low doses. glycopyrrolate 1mg po BID, now that dose of risperidone is less. 05/31: one more day on present regimen, change to zyprexa tomorrow if no improvement. 06/01: sialorrhea unimproved. DC risperidone and glycopyrrolate. start zyprexa 2.5 mg BID. 06/02: continue tx. 06/03: sialorrhea improved but still bothersome. T/C adding glycopyrrolate again. otherwise no change in presentation. 06/04/2024 Continue plan of care discharge planning patient's social engaged reportedly returning to his ultrasound not aggressive 06/05/2024 Continue plan of care discharge planning [facility] to [facility] 06/06: stable, improved. [facility] Reason for continued inpatient stay Substantial Risk for: stable for discharge Time Spent With Patient Time: Total time managing care of this patient today __25__ minutes.
--- NOTE | 2024-06-06 18:11 | P.DS_ITS ---
DS: Providers Provider Date of Service: 06/07/24 Date of admission: 05/18/24 12:26 Primary care physician: Unknown Physician Consults: 05/19/24 11:34 Consult to Hospitalist Routine Comment: Consulting Provider: Hospitalist Reason For Exam: ARMANDO DS: Diagnosis Discharge Diagnosis (1) Bipolar disorder: Status: Acute (2) Cognitive impairment: Status: Acute DS: Medications Discharge Medications Home Medications: Home Medications ?Medication ?Instructions ?Recorded ?Confirmed acetaminophen 650 mg tablet 650 mg PO Q4H PRN Mild Pain (Scale 05/17/24 05/17/24 Score 1-4) lidocaine 4 % topical patch 1 patch topical DAILY 05/17/24 05/17/24 (Lidocaine Pain Relief) simvastatin 10 mg tablet 10 mg PO BEDTIME 05/17/24 05/17/24 Previous Rx's ?Medication ?Instructions ?Recorded amlodipine 10 mg tablet 10 mg PO DAILY #0 tabs 06/06/24 divalproex 250 mg tablet,extended 250 mg PO TID #0 tabs 06/06/24 release 24 hr loperamide 2 mg capsule 4 mg (2 x 2 mg) PO Q6H PRN 06/06/24 diarrhea #0 caps nicotine (polacrilex) 2 mg gum 2 mg buccal Q2H PRN Nicotine 06/06/24 Cravings #0 ea nicotine 14 mg/24 hr daily 14 mg transdermal DAILY #0 ea 06/06/24 transdermal patch olanzapine 2.5 mg tablet 2.5 mg PO BID #0 tabs 06/06/24 propranolol 10 mg tablet 5 mg PO TID #0 tabs 06/06/24 quetiapine 100 mg tablet 100 mg PO TID PRN moderate 06/06/24 agitation #0 tabs sennosides 8.6 mg-docusate sodium 1 tab PO BID #0 tabs 06/06/24 50 mg tablet (Senna Plus) trazodone 50 mg tablet 50 mg PO BEDTIME #0 tabs 06/06/24 trazodone 50 mg tablet 50 mg PO BEDTIME PRN Insomnia #0 06/06/24 tabs valsartan 40 mg tablet 40 mg PO DAILY #0 tabs 06/06/24 Mental Status Exam Mental Status Exam Narrative: Apperance: wearing casual clothing, good hygiene, in NAD Behavior: cooperative, strong views which can come out of offensive but do not seem personal Psychomotor: bilateral hand action and resting tremor- quite prominent and affects his ability to hold objects Speech: mumbles at times, regular rate, but hyperverbal, spontaneous TP: some derailment and circumstantial TC: complaining about politics Mood: good Affect: pleasant SI: denies HI: denies VH/AH: none Delusions: some suspiciousness about government agencies Insight/judgment: poor x 2. Memory/cog: alert, oriented x3,pending MOCA and ACL DS: Summary Hospital Course Hospital Course: per 05/18 admission note: Mr. Beckford is a 73 year-old male with hx of Bipolar Disorder and alcohol use disorder in remission for more than 30 years who currently resides at [facility]. He was sent via EMS due to increase aggression, pounding his fist and increase threats of violence towards others. He has been at [facility] 2005, initially in independent living and was transferred to LTC in 2019. Per SW from [facility], pt has been stable and has not required any psychiatric admission while he has been there. SW reported he had covid few months ago and since then he has decompensated. He started seeing psychiatrist, Dr. Joyner- recent medication changes but unclear which meds- pending collateral information. In the ED, cbc without leukocytosis, normocytic anemia, although high end of normal MCV (will get B12/folate levels). CMP without electrolyte abnormalities, creatinine clearance 54.3. UA not suggestive of uti, no protein, nor glucose, no leukocytosis or WBC nor nitrites. No head image completed as recently in March of this year he had MRI which shows significant atrophy and microvascular changes. Utox is negative. Ammonia is negative. No depakote level was obtained- will order for tomorrow morning. Pt seen on the unit. He is pleasant and cooperative with somewhat of an irritable edge. He reports they sent me here because I said something to someone they they got offended. When asked about theme of conversation or disagreement, pt states he was talking about politic, he denies threatening anyone or being physically aggressive towards any one there. He has some degree of mistrust with government related processes and agencies. He also reminisces about how morals and values have changed for the worse and people don't honor their principles. He makes it clear that he is Sabianist and Syriac. He states that he does not agree with injustices such as assistant women's tennis coach Raúl who rape all those kids or the restaurant greeter who assaulted children. He thanks this marketing copywriter for taking the time to meet with him and notes I thought this place was going to be worse but I like it. He denies SI- stating only coward people would do that! I tell people they need to suck it up! He also denies any plan or intent to harm anyone. He did tell clinician in the ED that he would shoot people for their sexual orientation. He denies this when I asked him- that he would actually harm someone who identifies as phillips. He reports that he is upset with the [place] for allowing same sex marriage...which is not the case. He denies VH/AH. No overt delusions other than underlying mistrust of politicians, government agencies. Pt reports sleeping well. He denies any concerns with his appetite. He thinks someone betrayed him by sending him here to the hospital. Past Psychiatric History: Inpt: pt denies prior admissions. He did report seeing a psychiatrist several years ago and does report seeing one recently. OP: Dr. Joyner Past med trials: depakote, trileptal, seroquel Medical Evaluation Reviewed: Yes PMFSH Family History: none Social History: never . no children. Serve in the [employer]. Family originally from [place] Substance History: hx of alcohol use, remission for more than 30 years Trauma History: not disclosed Precis: Mr. Beckford is a 73 year-old male who resides at [facility]. He was sent from there via EMS due to subacute progression of agitation, irritability, ponding his fist and verbal threats of violence towards others which is not his usual. SW from reports that he has been declinining after he got covid few months ago. He has been seen by psychiatrist Dr. Joyner and recent med changes have been done but it is unclear which meds. Will contact Dr. Joyner for further collateral information. On the unit, pt presents as cooperative, irritable edge, strong views about politics, ethics and morals. He is not aware of his own medications nor what these are for. We discussed risks, benefits and alternative treatment options. It also appears that cognitively pt has declined. Note that MRI in March of this year does show significant atrophy and microvascular changes, pending MOCA and ACL. PLAN 05/19 consult to hospitalist for ARMANDO, HTN. will dc hydrocholothiazide for now. this marketing copywriter called CONY Mccormick at [facility] awaiting call back 05/20 continue tx. 05/21 yesterday his Norvasc was increased up to 10 mg p.o. at still with high blood pressure we will monitor closely. We are increasing Depakote up to 250 mg p.o. t.i.d. for agitation and aggression 05/22 increase Seroquel up to 100 mg p.o. t.i.d. to target psychosis and mirza. 05/23 continue tx. BP continues to be high despite adding amlodipine 10mg po daily last week. SBP 190's. hospitalist to adjust HTN meds. 05/24 will change seroquel to risperidone, will get depakote level tomorrow morning, along with ammonia. irritable and explosive. 05/25 continue current medication. 05/27 continue tx. depakote level on 05/25 42, ammonia 45. will schedule trazodone for sleep. he may benefit from aricept. 09/05: stably cantankerous. continue current mgmt. 05/29: start glycopyrrolate 1 TID for sialorrhea. stable. continue current mgmt otherwise. 05/30 will lower risperidone to 0.5mg po TID. May want to consider olanzapine if drooling continues and worsening tremors with risperidone even at low doses. glycopyrrolate 1mg po BID, now that dose of risperidone is less. 05/31: one more day on present regimen, change to zyprexa tomorrow if no improvement. 06/01: sialorrhea unimproved. DC risperidone and glycopyrrolate. start zyprexa 2.5 mg BID. 06/02: continue tx. 06/03: sialorrhea improved but still bothersome. T/C adding glycopyrrolate again. otherwise no change in presentation. 06/04/2024 Continue plan of care discharge planning patient's social engaged reportedly returning to his ultrasound not aggressive 06/05/2024 Continue plan of care discharge planning return to soldier some crusted 06/06: stable, improved. planning [facility]. 06/07: stable. safe. discharged as per plan. Time Spent with Patient Time attestation: Total time managing care of this patient today __35__ minutes. Discharge Plan Discharge Anticipated Discharge Date/Time: 06/07/24 10:00 Patient Disposition: Xfer SNF Discharge Diagnosis: Bipolar Disorder Cognitive Impairment Referrals: [facility] [Other] - 1 Week (All Providers are at [facility] will follow up upon his return) Discharge Medications: New nicotine 14 mg/24 hr Patch 24 Hour 14 mg transdermal DAILY Qty: 0 0RF nicotine (polacrilex) 2 mg Gum 2 mg buccal Q2H PRN (Reason: Nicotine Cravings) Qty: 0 0RF propranolol 10 mg Tablet 5 mg PO TID Qty: 0 0RF Protocol: Hold for SBP/HR < HOLD for SBP < : 90 HOLD for HR < : 60 amlodipine 10 mg Tablet 10 mg PO DAILY Qty: 0 0RF Protocol: Hold for SBP< HOLD for SBP < : 90 valsartan 40 mg Tablet 40 mg PO DAILY Qty: 0 0RF Protocol: Hold for SBP< HOLD for SBP < : 90 divalproex 250 mg Tablet Extended Release 24 Hr 250 mg PO TID Qty: 0 0RF loperamide 2 mg Capsule 4 mg PO Q6H PRN (Reason: diarrhea) Qty: 0 0RF trazodone 50 mg Tablet 50 mg PO BEDTIME Qty: 0 0RF trazodone 50 mg Tablet 50 mg PO BEDTIME PRN (Reason: Insomnia) Qty: 0 0RF sennosides-docusate sodium [Senna Plus] 8.6-50 mg Tablet 1 tab PO BID Qty: 0 0RF olanzapine 2.5 mg Tablet 2.5 mg PO BID Qty: 0 0RF quetiapine 100 mg Tablet 100 mg PO TID PRN (Reason: moderate agitation) Qty: 0 0RF Continued lidocaine [Lidocaine Pain Relief] 4 % Adhesive Patch,Medicated 1 patch TOPICAL DAILY simvastatin 10 mg Tablet 10 mg PO BEDTIME acetaminophen 650 mg Tablet 650 mg PO Q4H PRN (Reason: Mild Pain (Scale Score 1-4)) Discontinued clonazepam 0.5 mg Tablet 0.5 mg PO TID PRN (Reason: Anxiety) oxcarbazepine 300 mg Tablet 300 mg PO BID quetiapine [Seroquel] 100 mg Tablet 100 mg PO BID benztropine 1 mg Tablet 1 mg PO BID docusate sodium [Colace] 100 mg Capsule 100 mg PO BEDTIME PRN (Reason: Constipation) divalproex 250 mg Tablet Extended Release 24 Hr 250 mg PO BID hydrochlorothiazide 12.5 mg Capsule 12.5 mg PO DAILY Discharge Orders: Discharge Order (Routine); Ordered 06/07/24 Ordered By: Neil Quigley Diet: Advance to usual diet Activity on Discharge: As tolerated Stand Alone Forms: Patient Portal Discharge page, Community Support Print Language: Slovenian Care Plan Goals: remain safe and stable in a supported living environment Health Concerns: Hypertension Hypercholesterolemia Plan of Treatment: take medications as prescribed, attend appointments as scheduled Assessment: not at imminent risk of harm to self or others Discharge Date/Time: 06/07/24 11:00
[2024-06-06] MEDS: Atorvastatin Calcium 10 MG TABLET PO (19:40)
[2024-06-06 19:41] VITALS: BP 142/67; PULSE 76
[2024-06-06] MEDS: traZODone HCL 50 MG TABLET PO (19:41)
[2024-06-06 20:19] VITALS: BP 142/67; PULSE 76; RESP 18; TEMP 36.1; O2SAT 100
[2024-06-07 08:07] VITALS: BP 143/89; PULSE 77; RESP 20; TEMP 36.2; O2SAT 97
[2024-06-07 08:09] VITALS: BP 143/89; PULSE 77
[2024-06-07] MEDS: Divalproex Sodium ER 250 MG TAB.ER.24H PO (08:09)
[2024-06-07] MEDS: Valsartan 40 MG TABLET PO (08:09)
[2024-06-07] MEDS: OLANZapine 2.5 MG TABLET PO (08:09)
[2024-06-07] MEDS: Propranolol HCL 10 MG TABLET 5 MG PO (08:09)
[2024-06-07 08:10] VITALS: BP 143/89
[2024-06-07] MEDS: amLODIPine Besylate 10 MG TABLET PO (08:10)
[2024-06-07] MEDS: Sennosides/Docusate Sodium TABLET 1 TAB PO (08:10)
[2024-06-07] MEDS: Lidocaine 4 % Patch ADH..PATCH 1 PATCH TRANSDERMA (08:14)
[2024-06-07] MEDS: QUEtiapine Fumarate 100 MG TABLET PO (10:05)
== END 2024-06-07 11:00 | disposition skilled nursing facility (03) | DRG 885 ==
LOC: HO.ED 15:58 → HO.PGERI 05-18 12:29
PROVIDERS: Physician Assistant; Student in an Organized Health Care Education/Training Program; Admitting Provider Social Worker; Emergency Provider Emergency Medicine; Visit Provider Social Worker
DX: F31.9 Bipolar disorder, unspecified (principal); N17.9 Acute kidney failure, unspecified; F17.210 Nicotine dependence, cigarettes, uncomplicated; D64.9 Anemia, unspecified; R41.89 Other symptoms and signs involving cognitive functions and awareness; I10 Essential (primary) hypertension; E78.5 Hyperlipidemia, unspecified; Z71.6 Tobacco abuse counseling; Z79.899 Other long term (current) drug therapy
CPT/HCPCS: 36415; 80048; 80053; 80061; 80164; 80307; 81003; 82140; 82607; 82746; 83036; 83735; 84443; 85025; 93005; 99285; S9485

== ENCOUNTER → 2024-05-16 09:28 | Outpatient (BNV) | payer MEDICARE, MEDICAID, SELFPAY | PROVIDERS: Emergency Provider Emergency Medicine; Visit Provider Internal Medicine Cardiovascular Disease | DX: R94.31 Abnormal electrocardiogram [ECG] [EKG] (principal); R41.82 Altered mental status, unspecified | CPT/HCPCS: 93010 ==

== ENCOUNTER 2024-05-17 05:23 | Outpatient (REF) | payer MEDICARE, OTHER, SELFPAY | END 2024-05-17 05:24 | disposition home or self-care (01) | LOC: HO.HSH2W 05:23 | PROVIDERS: Visit Provider Internal Medicine | DX: Z13.89 Encounter for screening for other disorder (principal) ==

== ENCOUNTER → 2024-05-18 12:26 | Outpatient (BNV) | payer MEDICARE, MEDICAID, SELFPAY | PROVIDERS: Admitting Provider Social Worker; Emergency Provider Emergency Medicine; Visit Provider Social Worker | DX: F31.9 Bipolar disorder, unspecified (principal); R41.89 Other symptoms and signs involving cognitive functions and awareness | CPT/HCPCS: 90792; 99231; 99232; 99239 ==

== ENCOUNTER → 2024-05-18 12:26 | Outpatient (BNV) | payer MEDICARE, SELFPAY | PROVIDERS: Admitting Provider Social Worker; Emergency Provider Emergency Medicine; Visit Provider Psychiatry & Neurology Psychiatry | DX: F31.9 Bipolar disorder, unspecified (principal); R41.89 Other symptoms and signs involving cognitive functions and awareness | CPT/HCPCS: 99231 ==

== ENCOUNTER 2024-06-08 05:24 | Outpatient (REF) | payer MEDICARE, SELFPAY ==
[2024-06-08 06:10] LABS: MANUAL DIFF FLAG NO
[2024-06-08 06:23] LABS: Basophils Percent Auto 0.6 % (0-2); Eosinophils Absolute Auto 0.2 X10*3/uL (0.0-0.4); Hematocrit 33.1 % (42.0-52.0); Hemoglobin 10.9 g/dl (14.0-18.0); Imm Gran Abs Auto 0.03 X10*3/uL (0.00-0.03); Imm Gran Pct Auto 0.4 % (0.0-0.4); Lymphocytes Absolute Auto 1.6 X10*3/uL (1.2-4.9); Lymphocytes Percent Auto 23.1 % (20-40); Mean Corpuscular HGB Conc 32.9 g/dl (31.0-36.0); Mean Corpuscular Hemoglobin 31.2 pg (27.0-33.0); Mean Corpuscular Volume 94.8 fL (80.0-98.0); Mean Platelet Volume 8.9 fL (9.4-12.4); Monocytes Absolute Auto 1.1 X10*3/uL (0.1-1.2); Monocytes Percent Auto 16.3 % (2-11); Neutrophils Percent Auto 56.6 % (45-73); Platelet Count 239 X10*3/uL (160-400); Red Blood Count 3.49 X10*6/uL (4.60-5.80); Red Cell Distribution Width 13.2 % (11.0-16.0)
[2024-06-08 06:38] LABS: Alanine Aminotransferase 9 U/L (0-40); Albumin Level 3.2 g/dL (3.5-5.0); Alkaline Phosphatase 49 U/L (39-117); Anion Gap 13 (12-20); Aspartate Amino Transferase 14 U/L (5-37); Bilirubin Total 0.2 mg/dL (0.0-1.0); Blood Urea Nitrogen 22 mg/dL (9-16); Calcium 8.7 mg/dL (8.4-10.2); Carbon Dioxide 22 mmol/L (22-29); Chloride 109 mmol/L (96-108); Estimated Glomerular Filt Rate 54; Glucose Fasting 88 mg/dL (60-99); Potassium 3.7 mmol/L (3.3-5.1); Sodium 140 mmol/L (135-145)
[2024-06-08 06:54] LABS: Thyroid Stimulating Hormone 1.21 uIU/mL (0.32-4.0)
== END 2024-06-08 05:25 | disposition home or self-care (01) ==
LOC: HO.HSH2W 05:24
PROVIDERS: Visit Provider Internal Medicine
DX: I12.9 Hypertensive chronic kidney disease with stage 1 through stage 4 chronic kidney disease, or unspecified chronic kidney disease (principal); N18.9 Chronic kidney disease, unspecified; F31.9 Bipolar disorder, unspecified
CPT/HCPCS: 36415; 80053; 84443; 85025

== ENCOUNTER 2024-06-16 06:23 | Outpatient (REF) | payer MEDICARE, SELFPAY ==
[2024-06-16 06:49] LABS: Basophils Percent Auto 0.3 % (0-2); Eosinophils Absolute Auto 0.3 X10*3/uL (0.0-0.4); Eosinophils Percent Auto 2.2 % (0-4); Hematocrit 34.4 % (42.0-52.0); Hemoglobin 11.5 g/dl (14.0-18.0); Imm Gran Abs Auto 0.07 X10*3/uL (0.00-0.03); Imm Gran Pct Auto 0.5 % (0.0-0.4); Lymphocytes Absolute Auto 1.4 X10*3/uL (1.2-4.9); MANUAL DIFF FLAG SCAN; Mean Corpuscular HGB Conc 33.4 g/dl (31.0-36.0); Mean Corpuscular Hemoglobin 31.9 pg (27.0-33.0); Mean Corpuscular Volume 95.6 fL (80.0-98.0); Mean Platelet Volume 8.4 fL (9.4-12.4); Monocytes Absolute Auto 1.5 X10*3/uL (0.1-1.2); Monocytes Percent Auto 10.7 % (2-11); Neutrophils Absolute Auto 10.8 x10*3/uL (2.0-8.3); Neutrophils Percent Auto 76.3 % (45-73); Platelet Count 263 X10*3/uL (160-400); Red Cell Distribution Width 13.2 % (11.0-16.0); SCAN SMEAR FLAG 1; White Blood Count 14.2 X10*3/uL (4.8-10.8)
[2024-06-16 06:55] LABS: Ammonia 34 umol/L (13-55)
[2024-06-16 07:02] LABS: Valproate 32.2 mcg/mL (50.0-100.0)
[2024-06-16 07:09] LABS: Alanine Aminotransferase 7 U/L (0-40); Albumin Level 3.4 g/dL (3.5-5.0); Alkaline Phosphatase 53 U/L (39-117); Anion Gap 14 (12-20); Aspartate Amino Transferase 14 U/L (5-37); Bilirubin Total 0.2 mg/dL (0.0-1.0); Blood Urea Nitrogen 10 mg/dL (9-16); Calcium 9.1 mg/dL (8.4-10.2); Carbon Dioxide 23 mmol/L (22-29); Chloride 107 mmol/L (96-108); Estimated Glomerular Filt Rate 55; Glucose Random 95 mg/dL (60-115); Potassium 4.1 mmol/L (3.3-5.1); Sodium 140 mmol/L (135-145); Total Protein 6.7 g/dL (6.5-8.0)
[2024-06-16 07:41] LABS: SLIDE REVIEW VERIFIED
== END 2024-06-16 06:24 | disposition home or self-care (01) ==
LOC: HO.HSH2W 06:23
PROVIDERS: Visit Provider Internal Medicine
DX: D64.9 Anemia, unspecified (principal); R25.1 Tremor, unspecified; F25.9 Schizoaffective disorder, unspecified; Z79.899 Other long term (current) drug therapy
CPT/HCPCS: 36415; 80053; 80164; 82140; 85025

== ENCOUNTER 2024-06-23 05:56 | Outpatient (REF) | payer MEDICARE, SELFPAY ==
[2024-06-23 06:01] LABS: MANUAL DIFF FLAG NO
[2024-06-23 06:09] LABS: Basophils Absolute Auto 0.1 X10*3/uL (0.0-0.2); Basophils Percent Auto 0.6 % (0-2); Eosinophils Absolute Auto 0.4 X10*3/uL (0.0-0.4); Eosinophils Percent Auto 3.9 % (0-4); Hemoglobin 11.2 g/dl (14.0-18.0); Imm Gran Abs Auto 0.09 X10*3/uL (0.00-0.03); Lymphocytes Absolute Auto 2.1 X10*3/uL (1.2-4.9); Lymphocytes Percent Auto 22.1 % (20-40); Mean Corpuscular HGB Conc 32.9 g/dl (31.0-36.0); Mean Corpuscular Hemoglobin 30.9 pg (27.0-33.0); Mean Corpuscular Volume 93.9 fL (80.0-98.0); Mean Platelet Volume 8.3 fL (9.4-12.4); Monocytes Absolute Auto 1.2 X10*3/uL (0.1-1.2); Monocytes Percent Auto 12.4 % (2-11); Neutrophils Absolute Auto 5.6 x10*3/uL (2.0-8.3); Platelet Count 294 X10*3/uL (160-400); Red Blood Count 3.62 X10*6/uL (4.60-5.80); White Blood Count 9.3 X10*3/uL (4.8-10.8)
== END 2024-06-23 05:57 | disposition home or self-care (01) ==
LOC: HO.HSH2W 05:56
PROVIDERS: Visit Provider Internal Medicine Interventional Cardiology
DX: D72.829 Elevated white blood cell count, unspecified (principal)
CPT/HCPCS: 36415; 85025

== ENCOUNTER 2025-02-03 07:49 | Outpatient (REF) | payer MEDICARE, SELFPAY ==
[2025-02-03 07:54] LABS: MANUAL DIFF FLAG NO
[2025-02-03 08:21] LABS: Basophils Absolute Auto 0.1 X10*3/uL (0.0-0.2); Basophils Percent Auto 0.7 % (0-2); Eosinophils Absolute Auto 0.1 X10*3/uL (0.0-0.4); Eosinophils Percent Auto 1.5 % (0-4); Hematocrit 37.8 % (42.0-52.0); Hemoglobin 12.4 g/dl (14.0-18.0); Imm Gran Abs Auto 0.03 X10*3/uL (0.00-0.03); Imm Gran Pct Auto 0.4 % (0.0-0.4); Lymphocytes Absolute Auto 1.8 X10*3/uL (1.2-4.9); Lymphocytes Percent Auto 26.4 % (20-40); Mean Corpuscular HGB Conc 32.8 g/dl (31.0-36.0); Mean Corpuscular Hemoglobin 30.6 pg (27.0-33.0); Mean Corpuscular Volume 93.3 fL (80.0-98.0); Mean Platelet Volume 9.4 fL (9.4-12.4); Monocytes Percent Auto 14.8 % (2-11); Neutrophils Absolute Auto 3.7 x10*3/uL (2.0-8.3); Neutrophils Percent Auto 56.2 % (45-73); Platelet Count 230 X10*3/uL (160-400); Red Blood Count 4.05 X10*6/uL (4.60-5.80); White Blood Count 6.7 X10*3/uL (4.8-10.8)
[2025-02-03 08:50] LABS: Alanine Aminotransferase 6 U/L (0-40); Albumin Level 3.2 g/dL (3.5-5.0); Alkaline Phosphatase 36 U/L (39-117); Anion Gap 10 (12-20); Aspartate Amino Transferase 30 U/L (5-37); Bilirubin Total 0.3 mg/dL (0.0-1.0); Blood Urea Nitrogen 11 mg/dL (9-16); Calcium 8.7 mg/dL (8.4-10.2); Carbon Dioxide 24 mmol/L (22-29); Chloride 112 mmol/L (96-108); Cholesterol 117 mg/dL (<200); Estimated Glomerular Filt Rate > 60; Glucose Random 78 mg/dL (60-115); HDL Cholesterol 38 mg/dL (>40); LDL Cholesterol Calculated 59 mg/dL (<100); Potassium 4.3 mmol/L (3.3-5.1); Sodium 142 mmol/L (135-145); Total Protein 6.5 g/dL (6.5-8.0); Triglycerides 101 mg/dL (<150)
[2025-02-03 09:05] LABS: Thyroid Stimulating Hormone 1.17 uIU/mL (0.32-4.0)
== END 2025-02-03 07:50 | disposition home or self-care (01) ==
LOC: HO.HSH2W 07:49
PROVIDERS: Visit Provider Internal Medicine
DX: F25.9 Schizoaffective disorder, unspecified (principal); N18.9 Chronic kidney disease, unspecified
CPT/HCPCS: 36415; 80053; 80061; 84443; 85025

== ENCOUNTER 2025-04-03 07:13 | Outpatient (REF) | payer MEDICARE, SELFPAY ==
[2025-04-03 07:17] LABS: MANUAL DIFF FLAG NO
[2025-04-03 07:25] LABS: Basophils Percent Auto 0.5 % (0-2); Eosinophils Absolute Auto 0.1 X10*3/uL (0.0-0.4); Eosinophils Percent Auto 1.6 % (0-4); Hemoglobin 13.1 g/dl (14.0-18.0); Imm Gran Abs Auto 0.05 X10*3/uL (0.00-0.03); Imm Gran Pct Auto 0.7 % (0.0-0.4); Lymphocytes Absolute Auto 2.1 X10*3/uL (1.2-4.9); Lymphocytes Percent Auto 27.5 % (20-40); Mean Corpuscular HGB Conc 32.8 g/dl (31.0-36.0); Mean Corpuscular Hemoglobin 30.8 pg (27.0-33.0); Mean Corpuscular Volume 93.9 fL (80.0-98.0); Mean Platelet Volume 8.8 fL (9.4-12.4); Monocytes Absolute Auto 0.9 X10*3/uL (0.1-1.2); Monocytes Percent Auto 11.7 % (2-11); Neutrophils Absolute Auto 4.4 x10*3/uL (2.0-8.3); Platelet Count 199 X10*3/uL (160-400); Red Blood Count 4.26 X10*6/uL (4.60-5.80); Red Cell Distribution Width 14.1 % (11.0-16.0); White Blood Count 7.5 X10*3/uL (4.8-10.8)
[2025-04-03 07:47] LABS: Alanine Aminotransferase 6 U/L (0-40); Albumin Level 3.4 g/dL (3.5-5.0); Anion Gap 10 (12-20); Aspartate Amino Transferase 17 U/L (5-37); Bilirubin Total 0.3 mg/dL (0.0-1.0); Blood Urea Nitrogen 14 mg/dL (9-16); Calcium 9.6 mg/dL (8.4-10.2); Carbon Dioxide 27 mmol/L (22-29); Chloride 107 mmol/L (96-108); Estimated Glomerular Filt Rate > 60; Glucose Random 84 mg/dL (60-115); Potassium 4.6 mmol/L (3.3-5.1); Sodium 139 mmol/L (135-145); Total Protein 6.3 g/dL (6.5-8.0)
[2025-04-03 08:00] LABS: Alkaline Phosphatase 40 U/L (39-117)
== END 2025-04-03 07:14 | disposition home or self-care (01) ==
LOC: HO.HSH2W 07:13
PROVIDERS: Visit Provider Nurse Practitioner Acute Care
DX: D64.9 Anemia, unspecified (principal)
CPT/HCPCS: 36415; 80053; 85025

== ENCOUNTER 2025-05-15 06:42 | Outpatient (REF) | payer MEDICARE, SELFPAY ==
[2025-05-15 07:31] LABS: Valproate 46.2 mcg/mL (50.0-100.0)
== END 2025-05-15 06:43 | disposition home or self-care (01) ==
LOC: HO.HSH2W 06:42
PROVIDERS: Visit Provider Internal Medicine
DX: F20.9 Schizophrenia, unspecified (principal); N18.9 Chronic kidney disease, unspecified; R03.0 Elevated blood-pressure reading, without diagnosis of hypertension
CPT/HCPCS: 36415; 80164

== ENCOUNTER 2025-08-04 06:51 | Outpatient (REF) | payer MEDICARE, SELFPAY ==
[2025-08-04 13:17] LABS: Alanine Aminotransferase 11 U/L (0-40); Albumin Level 3.5 g/dL (3.5-5.0); Alkaline Phosphatase 38 U/L (39-117); Anion Gap 12 (12-20); Aspartate Amino Transferase 22 U/L (5-37); Blood Urea Nitrogen 19 mg/dL (9-16); Calcium 8.5 mg/dL (8.4-10.2); Carbon Dioxide 25 mmol/L (22-29); Chloride 107 mmol/L (96-108); Estimated Glomerular Filt Rate > 60; Magnesium 2.1 mg/dL (1.6-2.6); Potassium 4.6 mmol/L (3.3-5.1); Sodium 139 mmol/L (135-145); Total Protein 6.5 g/dL (6.5-8.0)
[2025-08-04 13:32] LABS: Thyroid Stimulating Hormone 1.47 uIU/mL (0.32-4.0)
== END 2025-08-04 06:52 | disposition home or self-care (01) ==
LOC: HO.HSH2W 06:51
PROVIDERS: Visit Provider Internal Medicine
DX: I12.9 Hypertensive chronic kidney disease with stage 1 through stage 4 chronic kidney disease, or unspecified chronic kidney disease (principal); N18.30 Chronic kidney disease, stage 3 unspecified
CPT/HCPCS: 36415; 80053; 83735; 84443